=== PATIENT | female | born 1965 | race Caucasian/White ===

== ENCOUNTER 2017-03-04 07:56 | Day surgery (SDC) | payer OTHER ==
[2017-03-01 14:26] VITALS: BMI 32.8
[2017-03-04 11:07] VITALS: BP 140/81; PULSE 57; TEMP 98
--- NOTE | 2017-03-05 14:04 | PATH ---
Surgical Pathology Report Patient Name: ROBYN ANAYA [facility]. Rec. #: [id number] /Age/Gender: 1965 (Age: 51) / F Account: [id number] Location: [facility] Taken: 03/04/2017 Received: 03/04/2017 Reported: 03/05/2017 Physicians: Юлия Gonzalez M.D. Specimen(s) Received A: BX DUODENUM B: BX BODY AND ANTRUM C: SIGMOID POLYP Clinical History Colon and sigmoid cancer, screening, BRCA 1 gene, personal history of breast and ovarian cancer, abdominal pain Atrophic gastritis, sigmoid polyp and diverticulosis Final Diagnosis A. DUODENUM, SECOND PORTION AND BULB, BIOPSY: DUODENAL MUCOSA WITH MILD CHRONIC INFLAMMATION AND FOCAL NADYA'S GLANDS HYPERPLASIA. NO HISTOLOGIC EVIDENCE OF GLUTEN SENSITIVE ENTEROPATHY (CELIAC DISEASE). B. STOMACH, BODY AND ANTRUM, BIOPSY: GASTRIC ANTRAL OXYNTIC MUCOSA WITH MODERATE CHRONIC GASTRITIS. NO INTESTINAL METAPLASIA DYSPLASIA IDENTIFIED. IMMUNOSTAIN FOR H. PYLORI IS NEGATIVE FOR ORGANISMS. C. COLON, SIGMOID, POLYP, POLYP RECTUM: ALIMENTARY MATTER. NO MUCOSAL TISSUE IDENTIFIED. Electronically Signed Jair Lakhani M.D. Gross Description A. Received in formalin, labeled "biopsy second portion of duodenum and bulb" are 2 pillai, irregular portions of soft tissue averaging 0.4 cm in greatest dimension. The specimens are submitted in toto in one cassette. B. Received in formalin, labeled "biopsy body and antrum" are 4 pillai, irregular portions of soft tissue ranging from 0.2-0.6 cm in greatest dimension. The specimens are submitted in toto in one cassette. C. Received in formalin, labeled "sigmoid colon polyp" is a pillai, irregular portion of soft tissue or possible debris measuring 0.1 cm in greatest dimension. The specimen is submitted in toto in one cassette. 03/04/2017 saudi03/04/2017
== END 2017-03-04 10:50 | disposition home or self-care (01) ==
LOC: JASU-ENDO 07:56
PROVIDERS: ATTEND Internal Medicine Gastroenterology
PROC: 0DB98ZX Excision of Duodenum, Via Natural or Artificial Opening Endoscopic, Diagnostic (ICD-10-PCS; 2017-03-04)
PROC: 0DB68ZX Excision of Stomach, Via Natural or Artificial Opening Endoscopic, Diagnostic (ICD-10-PCS; 2017-03-04)
PROC: 0DJD8ZZ Inspection of Lower Intestinal Tract, Via Natural or Artificial Opening Endoscopic (ICD-10-PCS; principal; 2017-03-04 09:00)
DX: D12.5 Benign neoplasm of sigmoid colon (principal); K57.30 Diverticulosis of large intestine without perforation or abscess without bleeding; K64.8 Other hemorrhoids; K31.89 Other diseases of stomach and duodenum; R10.9 Unspecified abdominal pain; Z15.01 Genetic susceptibility to malignant neoplasm of breast
CPT/HCPCS: 88305-TC; 88342-TC

== ENCOUNTER 2018-04-19 22:24 | Emergency (ER) | payer OTHER ==
[2018-04-19 22:35] VITALS: BMI 32.8
--- NOTE | 2018-04-19 23:27 | PDOC ---
History of Present Illness - General History Source: Patient Exam Limitations: No Limitations - History of Present Illness Initial Comments: 04/19/18 23:45 Ms. Navarro is a 52 yo F with a hx of BRCA 1 positive with ovarian cancer (2000 s/ p total hysterectomy with bilateral oopherectomy), asthma, and breast cancer (s/ p double masectomy 2015 with metastatic disease to left rib cage pending PET scan in 2 weeks) followed by [facility] who presents to the emergency department with generalized weakness for the past two days with chest pressure, palpitations, and headache beginning this evening. She checked her BP and HR at home and she was at a SBP of 149 with a HR of 37. She recently completed her heart monitoring with her glue maker, Dr. Fuller, yesterday with pending results. She felt "exhausted all day" and has occipital headaches. Endorses having nausea. Denies the following: fevers, chills, diaphoresis, lightheadedness, chest pain, SOB, abdominal pain, leg swelling, recent travels, hx of DVT/PE, recent immobilization, and melena. Shx: Refer to above Meds: No prescribed medications. Uses herbs and supplements prescribed by Dr. Alex Ozuna at [place]: tumeric, braziliam graviola, scutellaria barbata, vitamin D , probiotic. PMD: Dr. Danii Vines Employee Relations Manager: Dr. Fuller Oncologist: Dr. Guzman Alternative medicine doctor: Dr. Alex Guzman 04/20/18 00:09 04/20/18 00:29 <Jair Yusuf - Last Filed: 04/20/18 00:41> <Damir Chacko - Last Filed: 04/20/18 01:30> - General Chief Complaint: Palpitations Stated Complaint: LOW HEART RATE Time Seen by Provider: 04/19/18 22:45 Past History - Past Medical History Anemia: No Asthma: Yes Cancer: Yes (BREAST CA 02/17 RT AND CHEMO,ovarian w METS 06/05 & 06/07) Cardiac Disorders: Yes (pvc's) CVA: No COPD: No CHF: No Dementia: No Diabetes: Yes (STERIOD INDUCED TRANSIENT DIABETES) GI Disorders: Yes (GERD, DIVERTICULOSIS) Disorders: No HTN: No Hypercholesterolemia: No Liver Disease: No Seizures: No Thyroid Disease: No - Surgical History Abdominal Surgery: Yes (VENTRAL HERNIA REPAIR) Appendectomy: Yes Cardiac Surgery: No Cholecystectomy: No Lung Surgery: No Neurologic Surgery: No - Suicide/Smoking/Psychosocial Hx Smoking Status: No Smoking History: Former smoker Have you smoked in the past 12 months: No Number of Cigarettes Smoked Daily: 0 If you are a former smoker, when did you quit?: 1993 Information on smoking cessation initiated: No Hx Alcohol Use: No Drug/Substance Use Hx: No Substance Use Type: None Hx Substance Use Treatment: No <Jair Yusuf - Last Filed: 04/20/18 00:41> <Damir Chacko - Last Filed: 04/20/18 01:30> - Past Medical History Allergies/Adverse Reactions: Allergies Allergy/AdvReac Type Severity Reaction Status Date / Time Shellfish Allergy Unknown Verified 04/19/18 22:30 acetaminophen [From Vicodin] Allergy Verified 04/19/18 22:30 codeine Allergy Verified 04/19/18 22:30 hydrocodone [From Vicodin] Allergy Verified 04/19/18 22:30 kiwi Allergy Verified 04/19/18 22:30 [Kiwi (Actinidia Chinensis)] vancomycin Allergy Verified 04/19/18 22:30 PISTACHIOS Allergy TICKLE Uncoded 04/19/18 22:30 SENSATION TO THROAT Home Medications: Ambulatory Orders Albuterol Sulfate Inhaler - [Ventolin HFA Inhaler -] 1 inh PO QID PRN 08/06/14 Levalbuterol Tartrate [Xopenex Hfa] 15 gm IH PRN PRN 08/06/14 Cyclobenzaprine HCl [Flexeril -] 5 mg PO PRN 03/01/17 Review of Systems - Review of Systems Able to Perform ROS?: Yes Constitutional: No: Chills, Diaphoresis, Fever HEENTM: No: Eye Pain, Blurred Vision, Recent change in vision, Ear Pain, Nose Pain, Throat Pain, Mouth Pain Respiratory: No: Cough, Shortness of Breath Cardiac (ROS): Yes: Other (pressure and awareness of heart beat). No: Chest Pain, Edema, Palpitations, Syncope, Chest Tightness ABD/GI: Yes: Nausea, Poor Fluid Intake. No: Abdominal Distended, Constipated, Diarrhea, Poor Appetite, Rectal Bleeding, Vomiting, Tarry Stools : No: Burning, Dysuria, Hematuria Musculoskeletal: Yes: Neck Pain. No: Back Pain, Joint Pain Integumentary: No: Rash Neurological: Yes: Headache. No: Numbness, Paresthesia, Seizure, Tingling, Tremors, Weakness, Unsteady Gait, Dizziness Psychiatric: No: Stressors Endocrine: No: Increased Hunger Hematologic/Lymphatic: No: Anemia <Jair Yusuf - Last Filed: 04/20/18 00:41> *Physical Exam - Vital Signs Last Vital Signs Temp Pulse Resp BP Pulse Ox 98.4 F 69 18 119/89 96 04/19/18 22:32 04/19/18 22:32 04/19/18 22:32 04/19/18 22:32 04/19/18 22:32 - Physical Exam General Appearance: Yes: Nourished, Appropriately Dressed HEENT: positive: EOMI, GUS Neck: positive: Trachea midline. negative: Lymphadenopathy (R), Lymphadenopathy (L) Respiratory/Chest: positive: Lungs Clear, Normal Breath Sounds, Other (scars from previous masectomy procedure). negative: Chest Tender, Respiratory Distress, Accessory Muscle Use Cardiovascular: positive: Regular Rhythm, Regular Rate, S1, S2. negative: Systolic Murmur Vascular Pulses: Dorsalis-Pedis (R): 3+, Doralis-Pedis (L): 3+ Gastrointestinal/Abdominal: positive: Normal Bowel Sounds, Tender (epigastric region mild discomfort) Lymphatic: negative: Adenopathy Musculoskeletal: positive: Normal Inspection. negative: CVA Tenderness Extremity: positive: Normal Capillary Refill, Normal Inspection, Normal Range of Motion. negative: Tender Integumentary: positive: Normal Color, Dry, Warm Neurologic: positive: resistance welder II-XII NML intact, Fully Oriented, Alert, Normal Mood/ Affect, Normal Response, Motor Strength 5/5. negative: EOM Palsy, Facial Droop , Numbness, Sensory Deficit, Confused, Disoriented <Jair Yusuf - Last Filed: 04/20/18 00:41> - Vital Signs Last Vital Signs Temp Pulse Resp BP Pulse Ox 98.4 F 69 18 119/89 96 04/19/18 22:32 04/19/18 22:32 04/19/18 22:32 04/19/18 22:32 04/19/18 22:32 <Damir Chacko - Last Filed: 04/20/18 01:30> Heart Score/ECG Review - ECG Intrepretation Comment:: 04/20/18 00:36 ventricular rate 64 bpm, NM interval 134 ms, QRS 88 ms, QTc 433ms. Normal sinus rhythm. No ST elevations or depressions., <ParamjitJair - Last Filed: 04/20/18 00:41> ED Treatment Course - LABORATORY CBC & Chemistry Diagram: 04/20/18 00:32 04/20/18 00:32 <ParamjitJair - Last Filed: 04/20/18 00:41> - LABORATORY CBC & Chemistry Diagram: 04/20/18 00:32 04/20/18 00:32 - ADDITIONAL ORDERS Additional order review: Laboratory Results 04/20/18 04/20/18 04/20/18 00:40 00:37 00:32 Sodium 142 Potassium 4.4 Chloride 109 H Carbon Dioxide 26 Anion Gap 7 L BUN 19 H Creatinine 0.8 Creat Clearance w eGFR > 60 Random Glucose 108 H Calcium 8.7 Total Bilirubin 0.4 AST 46 H ALT 78 H Alkaline Phosphatase 101 Creatine Kinase 102 Troponin I < 0.02 B-Natriuretic Peptide 55.01 Total Protein 6.7 Albumin 3.6 Urine Color Ltyellow Urine Appearance Clear Urine pH 5.0 D Ur Specific [place] 1.020 Urine Protein Negative Urine Glucose (UA) Negative Urine Ketones Negative Urine Blood Negative Urine Nitrite Negative Urine Bilirubin Negative Urine Urobilinogen Negative Ur Leukocyte Esterase 2+ H Urine WBC (Auto) 11 Urine RBC (Auto) 1 Ur Epithelial Cells Rare Urine Mucus Rare 04/20/18 00:32 RBC 4.85 MCV 83.6 MCHC 33.6 RDW 15.0 MPV 10.0 Neutrophils % 50.1 D Lymphocytes % 38.2 D Monocytes % 8.4 D Eosinophils % 2.6 Basophils % 0.7 D <Damir Chacko - Last Filed: 04/20/18 01:30> Medical Decision Making - Medical Decision Making 04/20/18 00:36 52 yo F with cancer hx presenting with weakness and pressure sensation in her chest with associative headache. ddx: metabolic disturbance, anemia, infectious etiology, cardiac etiology (ACS vs pericarditis vs CHF) Had an extensive conversation with the patient. the patient was agreeable to discharge home if labs are within normal limits and with close follow up with her PMD and glue maker. Will run a CBC, CMP, UA, CXR, trops, BNP, to assess for etiologies of weakness. Initial vitals: Initial Vital Signs Temp Pulse Resp BP Pulse Ox 98.4 F 69 18 119/89 96 04/19/18 22:32 04/19/18 22:32 04/19/18 22:32 04/19/18 22:32 04/19/18 22:[address] Steven 04/20/18 00:39 04/20/18 00:42 <Jair Yusuf - Last Filed: 04/20/18 00:41> *DC/Admit/Observation/Transfer <Jair Yusuf - Last Filed: 04/20/18 00:41> <Damir Chacko - Last Filed: 04/20/18 01:30> Diagnosis at time of Disposition: Weakness, Bradycardia, Palpitations - Discharge Dispostion Disposition: HOME - Referrals Referrals: Danii Vines MD [Primary Care Provider] - - Patient Instructions Printed Discharge Instructions: DI for Bradycardia Additional Instructions: Your bloodwork and EKG were normal today. Please follow up with Dr. Fuller within 48 hours for further evaluation of your low heart rate. If you experience any chest pain, shortness of breath, lightheadedness, or any other concerning symptoms, return to the ER immediately. - Post Discharge Activity
[2018-04-20 00:42] LABS: BASO % 0.7 % (0-2.0); EOS % 2.6 % (0-4.5); HEMATOCRIT 40.5 % (32.4-45.2); HEMOGLOBIN 13.6 GM/dL (10.7-15.3); LYMPH % 38.2 % (8-40); MCH 28.1 pg (25.7-33.7); MCHC 33.6 g/dl (32.0-36.0); MEAN CELL VOLUME 83.6 fl (80-96); MONO % 8.4 % (3.8-10.2); NEUT % 50.1 % (42.8-82.8); PLATELET COUNT 168 K/MM3 (134-434); RBC 4.85 M/mm3 (3.60-5.2); WHITE BLOOD COUNT 6.4 K/mm3 (4.0-10.0)
[2018-04-20 00:48] LABS: URINE APPEARANCE CLEAR; URINE BILIRUBIN NEGATIVE (<2.0 mg/dL); URINE COLOR LTYELLOW; URINE GLUCOSE (UA) NEGATIVE (NEGATIVE); URINE KETONE NEGATIVE (NEGATIVE); URINE NITRITE NEGATIVE (NEGATIVE); URINE PROTEIN NEGATIVE (NEGATIVE); URINE UROBILINOGEN NEGATIVE mg/dL (0.2-1.0)
[2018-04-20 00:54] LABS: URINE LEUK ESTERASE 2+ (NEGATIVE)
[2018-04-20 01:05] LABS: EPI CELLS RARE /HPF (FEW); URINE MUCUS RARE
[2018-04-20 01:13] LABS: ALBUMIN 3.6 g/dl (3.4-5.0); ANION GAP 7 MMOL/L (8-16); BILIRUBIN,TOTAL 0.4 mg/dL (0.2-1.0); BLOOD UREA NITROGEN 19 mg/dL (7-18); CALCIUM 8.7 mg/dL (8.5-10.1); CHLORIDE 109 mmol/L (98-107); CO2 26 mmol/L (21-32); CREATININE 0.8 mg/dL (0.55-1.3); GLUCOSE,RANDOM 108 mg/dL (74-106); SGPT/ALT 78 U/L (13-61); SODIUM 142 mmol/L (136-145); TOT PROT 6.7 g/dl (6.4-8.2)
[2018-04-20 01:16] LABS: ALK PHOS 101 U/L (45-117)
[2018-04-20 01:18] LABS: SGOT/AST 46 U/L (15-37)
[2018-04-20 01:19] LABS: POTASSIUM 4.4 mmol/L (3.5-5.1)
--- NOTE | 2018-04-20 01:20 | PDOC ---
Attending Attestation - Resident Resident Name: Jair Yusuf - ED Attending Attestation I have performed the following: I have examined & evaluated the patient, The case was reviewed & discussed with the resident, I agree w/resident's findings & plan, Exceptions are as noted - HPI HPI: 04/20/18 01:03 Patient is a 52 year old female with a significant past medical history of BRCA 1 positive ovarian cancer (2000 s/p total hysterectomy with bilateral oophorectomy), asthma, and breast cancer (s/p double mastectomy 2015 with metastatic disease to left rib cage, not on chemo), who presents to the ED with complaints of palpitations and bradycardia. Pt states that she felt her heart beating into her head and in her chest earlier today. She denies CP/SOB but states that her heartbeat was very strong. She took her heart rate and found it to be in the 30s. Her BP at the time was 148 systolic. Pt states that the symptoms resolved by the time she arrived to the ER. Currently denies any symptoms. Pt states that she had a similar episode in December and was evaluated by a ethylbenzene oxidizer. During that episode, she states her HR was persistently low for over a week. She was not given a PPM. Allergies: Shellfish, acetaminophen, codeine, hydrocodone, kiwi, vancomycin, Pistachios Social history: Former smoker. No alcohol. No illicit drugs. Surgical history: Ventral hernia repair, Appendectomy PMD: Dr. Vines Commanding Officer Motorized Squad: Dr. Fuller Oncologist: Dr. Guzman Alternative medicine doctor: Dr. Alex Guzman - Physicial Exam PE: 04/20/18 01:20 GENERAL: Awake, alert, and fully oriented, in no acute distress. HEAD: No signs of trauma EYES: PERRLA, EOMI, sclera anicteric, conjunctiva clear ENT: Auricles normal inspection, hearing grossly normal, nares patent, oropharynx clear without exudates. Moist mucosa NECK: Nontender, no stepoffs, Normal ROM, supple, no lymphadenopathy, JVD, or masses LUNGS: Breath sounds equal, clear to auscultation bilaterally. No wheezes, and no crackles HEART: Regular rate and rhythm, normal S1 and S2, no murmurs, rubs or gallops ABDOMEN: Soft, nontender, normoactive bowel sounds. No guarding, no rebound. No masses EXTREMITIES: Normal range of motion, no edema. No clubbing or cyanosis. No cords, erythema, or tenderness NEUROLOGICAL: Cranial nerves II through XII intact. 5/5 strength and sensation in all extremities, Normal speech, normal gait, normal cerebellar function SKIN: Warm, Dry, normal turgor, no rashes or lesions noted. - Medical Decision Making 04/20/18 01:20 52 F with episode of bradycardia at home, now resolved, associated with palpitations. Pt now with normal vitals, EKG shows NSR with rate 62. No chest pain/SOB. No lightheadedness/syncope. Pt appears to have perfusing pressure despite being bradycardic at home. Now HD stable in ED. - Labs, trop 04/20/18 01:28 Labs wnl, trop negative Pt monitored in ED for 3 hours, HR has been wnl CXR negative on my read UA with 11 WBCs. Pt denies any dysuria, denies F/C. Will defer abx at this time. Pt reassessed - continues to have no complaints. Pt is well appearing, with normal vitals. Clinically stable for DC at this time. I discussed the physical exam findings, ancillary test results and final diagnoses with the patient. I answered all of the patient's questions. The patient was satisfied with the care received and felt comfortable with the discharge plan and treatment plan. The patient agrees to follow up with the primary care physician within 24-72 hours.
[2018-04-20 01:49] VITALS: BP 123/79; PULSE 89; TEMP 98.6
--- NOTE | 2018-04-20 21:19 | EKG ---
Test Reason : Blood Pressure : / mmHG Vent. Rate : 064 BPM Atrial Rate : 064 BPM P-R Int : 134 ms QRS Dur : 088 ms QT Int : 420 ms P-R-T Axes : 034 017 012 degrees QTc Int : 433 ms NORMAL SINUS RHYTHM NORMAL ECG WHEN COMPARED WITH ECG OF 06-JUL-2014 20:14, NO SIGNIFICANT CHANGE WAS FOUND Confirmed by DELFINO VAUGHAN MD ([id number]) on 04/20/2018 9:19:06 PM Referred By: Confirmed By:DELFINO VAUGHAN MD
== END 2018-04-20 01:40 | disposition home or self-care (01) ==
LOC: JER 22:24
DX: R53.1 Weakness (principal); R00.1 Bradycardia, unspecified; R00.2 Palpitations; Z85.43 Personal history of malignant neoplasm of ovary; Z85.3 Personal history of malignant neoplasm of breast; Z85.830 Personal history of malignant neoplasm of bone; Z90.13 Acquired absence of bilateral breasts and nipples; Z87.19 Personal history of other diseases of the digestive system; Z91.013 Allergy to seafood; Z91.018 Allergy to other foods; Z88.8 Allergy status to other drugs, medicaments and biological substances; Z90.710 Acquired absence of both cervix and uterus; Z90.79 Acquired absence of other genital organ(s); Z90.722 Acquired absence of ovaries, bilateral
CPT/HCPCS: 36415; 71045-TC-FY; 80053; 81003; 81015; 82550; 83880; 84484; 85025; 93005; 93010; 99282-25

== ENCOUNTER 2019-03-16 11:08 | Inpatient (IN) | payer OTHER ==
--- NOTE | 2019-03-16 11:49 | PDOC ---
History of Present Illness - General Chief Complaint: Chest Pain Stated Complaint: CHEST PAIN Time Seen by Provider: 03/16/19 11:48 History Source: Patient Exam Limitations: No Limitations - History of Present Illness Initial Comments: 53 year old female with PMH metastatic breast CA (diagnosed 12/2015), ovarian CA (diagnosed 06/2001, mets 2002) presented to ED for chest pain x2 days, worsened today at 0100. Pt reported she awoke with chest pain around 0100 today , took her pulse which was 110, stayed awake for an hour or so, then felt the palpitations subside and went back to sleep. Pt reported generalized weakness, body cramping, abdmoinal cramping, left lower extremity edema x2 weeks since starting Faslodex January 28 2019. Pt reported she has had 3 injections of Faslodex. Pt also reported sweats/chills/subjective fever x2 days. PCP: Jasmyn Cardiology: Jonny Onc: Dr. Harrell at [facility] and Dr. Fu at [place] Allergies: Vancomycin (red man syndrome) Past History - Past Medical History Allergies/Adverse Reactions: Allergies Allergy/AdvReac Type Severity Reaction Status Date / Time Shellfish Allergy Unknown Verified 03/16/19 11:20 acetaminophen [From Vicodin] Allergy Verified 03/16/19 11:20 codeine Allergy Verified 03/16/19 11:20 hydrocodone [From Vicodin] Allergy Verified 03/16/19 11:20 kiwi Allergy Verified 03/16/19 11:20 [Kiwi (Actinidia Chinensis)] vancomycin Allergy Verified 03/16/19 11:20 PISTACHIOS Allergy TICKLE Uncoded 03/16/19 11:20 SENSATION TO THROAT Home Medications: Ambulatory Orders Levalbuterol Tartrate [Xopenex Hfa] 15 gm IH PRN PRN 08/06/14 Cyclobenzaprine HCl [Flexeril -] 5 mg PO PRN 03/01/17 Alprazolam [Xanax] 0.25 mg PO Q12H PRN 03/16/19 Fulvestrant [Faslodex] 250 mg IM ASDIR 03/16/19 Ondansetron HCl [Zofran] 8 mg PO TID PRN 03/16/19 Palbociclib [Ibrance] 125 mg PO ASDIR 03/16/19 Anemia: No Asthma: Yes Cancer: Yes (BREAST CA 02/17 RT AND CHEMO,ovarian w METS 06/05 & 06/07) Cardiac Disorders: Yes (pvc's) CVA: No COPD: No CHF: No Dementia: No Diabetes: Yes (STERIOD INDUCED TRANSIENT DIABETES) GI Disorders: Yes (GERD, DIVERTICULOSIS) Disorders: No HTN: No Hypercholesterolemia: No Liver Disease: No Seizures: No Thyroid Disease: No - Surgical History Abdominal Surgery: Yes (VENTRAL HERNIA REPAIR) Appendectomy: Yes Cardiac Surgery: No Cholecystectomy: No Lung Surgery: No Neurologic Surgery: No - Suicide/Smoking/Psychosocial Hx Smoking Status: No Smoking History: Unknown if ever smoked Have you smoked in the past 12 months: No Number of Cigarettes Smoked Daily: 0 If you are a former smoker, when did you quit?: 1993 Hx Alcohol Use: No Drug/Substance Use Hx: No Substance Use Type: None Hx Substance Use Treatment: No Review of Systems - Review of Systems Able to Perform ROS?: Yes Comments:: General: admitted to body aches, generalized weakness, subjective fever, sweats , chills. HEENT: denied sore throat, rhinorrhea, ear pain. Cardiovascular: admitted to chest pain, palpitations. denied syncope, diaphoresis. Respiratory: denied shortness of breath, cough, sputum production, hemoptysis. Gastrointestinal: admitted to abdominal pain. denied nausea, vomiting, diarrhea , constipation, blood in stool. Genitourinary: denied dysuria, increased urinary frequency, hematuria, urinary incontinence, flank pain. Back: denied back pain. Musculoskeletal: denied joint pain, muscle pain, joint swelling. Neurological: denied headache, dizziness, numbness, tingling, weakness. Integumentary: denied rash, laceration, abrasion. Hematologic/Lymphatic: denied bruising or bleeding. *Physical Exam - Vital Signs Last Vital Signs Temp Pulse Resp BP Pulse Ox 98.3 F 87 18 138/95 98 03/16/19 11:24 03/16/19 11:24 03/16/19 11:24 03/16/19 11:24 03/16/19 11:24 - Physical Exam Comments: Constitutional: Well-nourished, Well-developed, appearing stated age. HEENT: head is normocephalic, atraumatic. EOMI. PERRLA. Neck: supple. Full ROM. Cardiovascular: regular heart rhythm. no murmurs. no pericardial friction rub. Respiratory: clear to auscultation bilaterally. no crackles, rhonchi or wheezing. no stridor. Gastrointestinal: soft, nontender. normal bowel sounds. no rebound, guarding, masses. Extremities: peripheral pulses intact. 1+ pitting edema to LLE. no edema to RLE. Neurological: CN 2-12 grossly intact. moves all four extremities. Psych: awake, alert, oriented x3. follows commands. answers questions appropriately. ED Treatment Course - LABORATORY CBC & Chemistry Diagram: 03/16/19 12:39 03/16/19 12:39 Medical Decision Making - Medical Decision Making 03/16/19 12:13 53 year old female with above PMH presented to ED for chest pain since 944 this AM. Initial Vital Signs Temp Pulse Resp BP Pulse Ox 98.3 F 87 18 138/95 98 03/16/19 11:24 03/16/19 11:24 03/16/19 11:24 03/16/19 11:24 03/16/19 11:24 Afebrile. No tachycardia. No tachypnea. Mild hypertension. No hypoxia on room air. Labs ordered: CBC, CMP, mag, serum Imaging ordered: CXR, LLE Duplex, CTA chest Medications ordered: ASA 162 mg PO chew once EKG performed at 1110: rate 74, regular rhythm, normal axis, normal intervals, flipped T in III, otherwise no acute ST changes. EKG comparison 04/19/18: flipped T in III 03/16/19 13:07 CBC WBC 4.1 K/mm3 (4.0-10.0) 03/16/19 12:39 RBC 4.26 M/mm3 (3.60-5.2) 03/16/19 12:39 Hgb 13.7 GM/dL (10.7-15.3) 03/16/19 12:39 Hct 40.2 % (32.4-45.2) 03/16/19 12:39 MCV 94.4 fl (80-96) 03/16/19 12:39 MCH 32.3 pg (25.7-33.7) D 03/16/19 12:39 MCHC 34.2 g/dl (32.0-36.0) 03/16/19 12:39 RDW 15.9 % (11.6-15.6) H 03/16/19 12:39 Plt Count 231 K/MM3 (134-434) D 03/16/19 12:39 MPV 9.1 fl (7.5-11.1) 03/16/19 12:39 Absolute Neuts (auto) 2.2 K/mm3 (1.5-8.0) 03/16/19 12:39 Neutrophils % 53.0 % (42.8-82.8) 03/16/19 12:39 Lymphocytes % 38.1 % (8-40) 03/16/19 12:39 Monocytes % 5.1 % (3.8-10.2) 03/16/19 12:39 Eosinophils % 1.5 % (0-4.5) 03/16/19 12:39 Basophils % 2.3 % (0-2.0) H D 03/16/19 12:39 Nucleated RBC % 0 % (0-0) 03/16/19 12:39 No leukocytosis. No anemia. 03/16/19 14:15 CMP Sodium 143 mmol/L (136-145) 03/16/19 12:39 Potassium 4.3 mmol/L (3.5-5.1) 03/16/19 12:39 Chloride 110 mmol/L (98-107) H 03/16/19 12:39 Carbon Dioxide 24 mmol/L (21-32) 03/16/19 12:39 Anion Gap 9 MMOL/L (8-16) 03/16/19 12:39 BUN 19.0 mg/dL (7-18) H 03/16/19 12:39 Creatinine 1.0 mg/dL (0.55-1.3) 03/16/19 12:39 Est GFR (CKD-EPI)AfAm 74.49 03/16/19 12:39 Est GFR (CKD-EPI)NonAf 64.27 03/16/19 12:39 Random Glucose 102 mg/dL (74-106) 03/16/19 12:39 Calcium 8.9 mg/dL (8.5-10.1) 03/16/19 12:39 Magnesium 2.2 mg/dL (1.8-2.4) 03/16/19 12:39 Total Bilirubin 0.4 mg/dL (0.2-1) 03/16/19 12:39 AST 37 U/L (15-37) 03/16/19 12:39 ALT 67 U/L (13-61) H 03/16/19 12:39 Alkaline Phosphatase 60 U/L (45-117) 03/16/19 12:39 Troponin I < 0.02 ng/ml (0.00-0.05) 03/16/19 12:39 Total Protein 6.8 g/dl (6.4-8.2) 03/16/19 12:39 Albumin 3.9 g/dl (3.4-5.0) 03/16/19 12:39 Serum , Qual Negative 03/16/19 12:39 No electrolyte abnormalities. No Lucho. No transaminitis. Troponin undetectable. Serum negative. 03/16/19 16:44 CTA report: Name: [facility] DEPARTMENT OF RADIOLOGY Phys: Ariela Whitman RESIDENT : 1965 Age: 53 Sex: F [facility] Acct: [id number] Loc: [address] Exam Date: 03/16/19 Status: [place] [address] Unit Number: [id number] EXAM#: TYPE/EXAM: RESULT: [id number] CT/CHEST CTA Chest CT angiography Clinical information: evaluate for pulmonary embolism; chest pain, left lower extremity swelling, history of metastatic breast disease Multiplanar imaging was performed following intravenous administration of nonionic contrast. No discrete pulmonary embolus is identified. In comparison to a CT study of 2013 interval development of a mild subtle left upper lobe interstitial infiltrate is seen. Development of sclerotic lesions is seen within the left fourth, seventh and eighth ribs, the right seventh and eighth ribs, T12 vertebral body, and sternal body suggestive of metastatic neoplastic disease. Interval development of a 0.3 cm spherical sclerotic focus is noted within the T12 vertebral body also suggestive of neoplastic disease. Status post interval partial left mastectomy. Bilateral accessory surgical clips. The remainder of the chest exam demonstrates no definite interval change. Small stable left upper lobe and left lower lobe pulmonary nodules. No pneumothorax or pleural effusion is seen. There is no definite cardiac enlargement. No pericardial effusion is noted. There is no aortic aneurysm. No gross aortic dissection is visualized. No discrete lymphadenopathy is identified. The trachea and central bronchi demonstrate no obvious pathology. The partially imaged liver demonstrates development of diffuse fatty infiltration. Note is again made of mild stable left adrenal gland thickening consistent with hyperplasia versus subcentimeter adenomas. Impression: No CT evidence of pulmonary embolism. In comparison to a 2014 CT exam interval development of mild subtle left upper lobe interstitial infiltrate is seen which may be acute or chronic. Correlate clinically and with follow-up CT. Interval development of multifocal sclerotic lesions is noted suggestive of metastatic neoplastic disease. Small stable left upper lobe and left lower lobe pulmonary nodules. Hepatic steatosis. Stable left adrenal gland thickening consistent with hyperplasia versus subcentimeter adenomas. Reported By: George Carson MD 03/16/19 1631 Medications ordered: Vancomycin, Zosyn, aizthromycin 500 mg PO once Pt to be admitted for pneumonia, chest pain. Dr. Vines paged. 03/16/19 16:[address] Vines about the patient, she agrees with admission under her care. Pending admission. 03/16/19 17:19 CXR report: Exam Date: 03/16/19 Status: [place] [address] Unit Number: [id number] EXAM#: TYPE/EXAM: RESULT: [id number] RAD/CHEST - PA Chest: Chest pain Single view of the chest is submitted. Since 04/20/2018 there is no change of an adverse nature. There are clear lungs, normal mediastinum and sharp angles. There are right chest wall clips. The bones appear intact. There may be slight breast asymmetry. Impression: No acute chest pathology. Right chest wall clips. Reported By: Twin Cordero MD 03/16/19 17:33 Duplex US report: Exam Date: 03/16/19 Status: [place] [address] Unit Number: [id number] EXAM#: TYPE/EXAM: RESULT: [id number] US/DUPLEX VASCUL US-1 LEG Left lower extremity venous ultrasound Clinical information given: LLE swelling The exam was performed utilizing compression, grayscale, color flow and doppler sonography. There is no sonographic evidence of deep vein thrombosis. If there is clinical concern for possible isolated calf DVT or if there is a clinical diagnosis of uncomplicated superficial thrombophlebitis, then correlation with close follow up sonography is suggested. There is no obvious popliteal fossa cyst. Impression : No DVT is identified involving the left leg. Please see above. Reported By: George Carson MD 03/16/19 6537 *DC/Admit/Observation/Transfer Diagnosis at time of Disposition: Chest pain, Pneumonia - Discharge Dispostion Condition at time of disposition: Stable Decision to Admit order: Yes - Referrals - Patient Instructions - Post Discharge Activity
[2019-03-16 12:58] LABS: BASO % 2.3 % (0-2.0); EOS % 1.5 % (0-4.5); HEMATOCRIT 40.2 % (32.4-45.2); HEMOGLOBIN 13.7 GM/dL (10.7-15.3); LYMPH % 38.1 % (8-40); MCH 32.3 pg (25.7-33.7); MCHC 34.2 g/dl (32.0-36.0); MEAN CELL VOLUME 94.4 fl (80-96); MEAN PLT VOLUME 9.1 fl (7.5-11.1); MONO % 5.1 % (3.8-10.2); PLATELET COUNT 231 K/MM3 (134-434); RBC 4.26 M/mm3 (3.60-5.2); RDW 15.9 % (11.6-15.6); WHITE BLOOD COUNT 4.1 K/mm3 (4.0-10.0)
[2019-03-16 13:13] LABS: INR 1.08 (0.83-1.09); PROTHROMBIN TIME (PATIENT) 12.8 SEC (9.7-13.0)
[2019-03-16 13:16] LABS: ACTIVATED PTT 28.5 SECONDS (25.2-36.5)
[2019-03-16 13:23] LABS: ALBUMIN 3.9 g/dl (3.4-5.0); ALK PHOS 60 U/L (45-117); ANION GAP 9 MMOL/L (8-16); BILIRUBIN,TOTAL 0.4 mg/dL (0.2-1); CALCIUM 8.9 mg/dL (8.5-10.1); CHLORIDE 110 mmol/L (98-107); CO2 24 mmol/L (21-32); GLUCOSE,RANDOM 102 mg/dL (74-106); MAGNESIUM 2.2 mg/dL (1.8-2.4); POTASSIUM 4.3 mmol/L (3.5-5.1); SGOT/AST 37 U/L (15-37); SGPT/ALT 67 U/L (13-61); SODIUM 143 mmol/L (136-145); TOT PROT 6.8 g/dl (6.4-8.2)
--- NOTE | 2019-03-16 13:41 | PDOC ---
Documentation entered by Maninder Wan SCRIBE, acting as scribe for Italia Castellon MD. Italia Castellon MD: This documentation has been prepared by the Soco mena Elijah, SCRIBE, under my direction and personally reviewed by me in its entirety. I confirm that the documentation accurately reflects all work, treatment, procedures, and medical decision making performed by me. Attending Attestation - Resident Resident Name: Ariela Whitman - ED Attending Attestation I have performed the following: I have examined & evaluated the patient, The case was reviewed & discussed with the resident, I agree w/resident's findings & plan, Exceptions are as noted - HPI HPI: 03/16/19 13:16 Patient is a 53 year old female with a significant past medical history of metastatic breast CA (diagnosed 12/2015), ovarian CA (diagnosed 06/2001, mets 2002) who presents to the ED with x3 days of L-sided Chest Pain. The patient began to feel the chest pain which she originally described as cramping, non radiating and thought was associated with a change in medicine. Pt reports starting new chemo injections last Saturday of Faslodex. Over the last day, she states the pain has become more sharp in nature and woke her up from sleep last night. She also notes checking her pulse at the time and her HR was 116 which is abnormal for her. She denies SOB and fever. She reports "soaking" through her sheets last night however. She notes swelling of her LLE. Denies dizziness, focal weakness/numbness, abd pain, N/V/D. Allergies: Acetaminophen, Codeine, Hydrocodone, Vancomycin, Kiwi, Pistachio, Shellfish PCP: Dr. Vines Cardiology: Onc: Dr. Harrell at [facility] and Dr. Fu at [facility] - Physicial Exam PE: 03/16/19 13:16 Agree with Resident's Exam - Medical Decision Making 03/16/19 13:31 53yo F hx active breast/ovarian ca on chemo (daily oral, injections every 28 days, last 6 days ago) prsents to the ED with CP for 3 days a/w elevated HR as well as sweats. Vitals here wnl Exam wnl Will initiate PE w/u as well as infectious w/u as pt is immunocompromised EKG non ischemic Anticipate admission 03/16/19 16:52 W/u revealing of PNA in DARWIN, consistent with pt's sxs - likely pleurisy PE negative Covered with HCAP as she is on chemo and frequently in hospital Case discussed with Dr. Vines, pt accepted for admission Case discussed in detail with admitting physician including history, physical exam and ancillary studies. Admitting physician has assumed care for the patient, will follow all pending diagnostics and will complete the evaluation and treatment. Heart Score/ECG Review #1 03/16/19 13:40 Twelve-lead EKG was performed and reviewed by me. Sinus rhythm, rate 74. Wavy baseline. Normal axis. No ST elevations.
[2019-03-16] MEDS ORDERED: ACETAMINOPHEN 1000 MG/100 ML VIAL (NON FORMULARY) IVPB ONE (14:29)
[2019-03-16] MEDS ORDERED: ACETAMINOPHEN INJECTION 100 ML IVPB ONE (16:18)
[2019-03-16] MEDS ORDERED: PIPERACILLIN/TAZOB 4.5 GM 4.5 GM in DEXTROSE 5%-WATER 100 ML IVPB ONE (16:38)
[2019-03-16] MEDS ORDERED: AZITHROMYCIN 250 MG TABLET PO ONE (16:39)
[2019-03-16] MEDS ORDERED: ALPRAZolam 0.25 MG TABLET PO PRN (17:04)
[2019-03-16] MEDS ORDERED: ONDANSETRON 8 MG TABLET (FP) PO PRN (17:04)
[2019-03-16] MEDS ORDERED: PATIENT'S OWN MEDICATION (NON-FORMULARY) (Levalbuterol Tartrate [Xopenex Hfa] 15 GM) IH PRN (17:04)
[2019-03-16] MEDS ORDERED: CYCLOBENZAPRINE HCL 10 MG TABLET (FP) PO PRN (17:10)
[2019-03-16] MEDS ORDERED: IBUPROFEN 600 MG TABLET (FP) PO PRN (17:13)
[2019-03-16] MEDS ORDERED: PALBOCICLIB 125 MG PO SCH (17:15)
[2019-03-16] MEDS ORDERED: CYCLOBENZAPRINE HCL 10 MG TABLET (FP) PO SCH (17:15)
[2019-03-16] MEDS ORDERED: PIPERACILLIN/TAZOB 4.5 GM 4.5 GM/100 ML BAG IVPB ONE (19:29)
--- NOTE | 2019-03-16 20:30 | CONSULT ---
Consult - text type - Consultation Consultation Note: 53 year old female with PMH metastatic breast CA (diagnosed 12/2015), ovarian CA (diagnosed 06/2001, mets 2002) presented to ED for chest pain x2 days. Pt reported she awoke with chest pain around 0100 today, took her pulse which was 110, stayed awake for an hour or so, then felt the palpitations subside and went back to sleep. Pt reported generalized weakness, body cramping, abdmoinal cramping, left lower extremity edema x2 weeks since starting Faslodex January 28 2019. Pt reported she has had 3 injections of Faslodex. Pt also reported sweats/ chills/subjective fever x2 days. PCP: Jasmyn Cardiology: Jonny Onc: Dr. Harrell at [facility] and Dr. Fu at [place] Allergies: Vancomycin (red man syndrome) Past History h/o BRCA1 positivity h/o ovarian cancer 2000, treaed by Dr. Dee , s/p surgery, carbo/taxol x several c ycles Recurrence in 2002 s/p doxil x 8 cycles. In remission since then Rt. breast cancer 2015--s/p b/l mastectomies. No adjuvant therapy. Treated at [facility] [address] Gonzalez Recurrence in 2017 -- [place] [facility] Received olapari, then letrozole + ibrance briefly and more recently faslodex + ibrance Allergies/Adverse Reactions: Allergies Allergy/AdvReac Type Severity Reaction Status Date / Time Shellfish Allergy Unknown Verified 03/16/19 11:20 acetaminophen [From Vicodin] Allergy Verified 03/16/19 11:20 codeine Allergy Verified 03/16/19 11:20 hydrocodone [From Vicodin] Allergy Verified 03/16/19 11:20 kiwi Allergy Verified 03/16/19 11:20 [Kiwi (Actinidia Chinensis)] vancomycin Allergy Verified 03/16/19 11:20 PISTACHIOS Allergy TICKLE Uncoded 03/16/19 11:20 SENSATION TO THROAT Home Medications: Ambulatory Orders Levalbuterol Tartrate [Xopenex Hfa] 15 gm IH PRN PRN 08/06/14 Cyclobenzaprine HCl [Flexeril -] 5 mg PO PRN 03/01/17 Alprazolam [Xanax] 0.25 mg PO Q12H PRN 03/16/19 Fulvestrant [Faslodex] 250 mg IM ASDIR 03/16/19 Ondansetron HCl [Zofran] 8 mg PO TID PRN 03/16/19 Palbociclib [Ibrance] 125 mg PO ASDIR 03/16/19 Asthma: Yes Cancer: Yes (BREAST CA 02/17 RT AND CHEMO,ovarian w METS 06/05 & 06/07) Cardiac Disorders: Yes (pvc's)o Diabetes: Yes (STERIOD INDUCED TRANSIENT DIABETES) GI Disorders: Yes (GERD, DIVERTICULOSIS) - Surgical History Abdominal Surgery: Yes (VENTRAL HERNIA REPAIR) Appendectomy: Yes - Suicide/Smoking/Psychosocial Hx Smoking Status: No Smoking History: Unknown if ever smoked Have you smoked in the past 12 months: No Number of Cigarettes Smoked Daily: 0 If you are a former smoker, when did you quit?: 1993 Hx Alcohol Use: No Drug/Substance Use Hx: No Substance Use Type: None Hx Substance Use Treatment: No Review of Systems - Review of Systems Able to Perform ROS?: Yes Comments:: General: admitted to body aches, generalized weakness, subjective fever, sweats , chills. HEENT: denied sore throat, rhinorrhea, ear pain. Cardiovascular: admitted to chest pain, palpitations. denied syncope, diaphoresis. Respiratory: denied shortness of breath, cough, sputum production, hemoptysis. Gastrointestinal: admitted to abdominal pain. denied nausea, vomiting, diarrhea , constipation, blood in stool. Genitourinary: denied dysuria, increased urinary frequency, hematuria, urinary incontinence, flank pain. Back: denied back pain. Musculoskeletal: denied joint pain, muscle pain, joint swelling. Neurological: denied headache, dizziness, numbness, tingling, weakness. Integumentary: denied rash, laceration, abrasion. Hematologic/Lymphatic: denied bruising or bleeding. *Physical Exam - Vital Signs Last Vital Signs Temp Pulse Resp BP Pulse Ox 98.3 F 87 18 138/95 98 03/16/19 11:24 03/16/19 11:24 03/16/19 11:24 03/16/19 11:24 03/16/19 11:24 - Physical Exam Comments: Constitutional: Well-nourished, Well-developed, appearing stated age. HEENT: head is normocephalic, atraumatic. EOMI. PERRLA. Neck: supple. Full ROM. Cardiovascular: regular heart rhythm. no murmurs. no pericardial friction rub. Respiratory: clear to auscultation bilaterally. no crackles, rhonchi or wheezing. no stridor. Gastrointestinal: soft, nontender. normal bowel sounds. no rebound, guarding, masses. Extremities: peripheral pulses intact. 1+ pitting edema to LLE. no edema to RLE. Neurological: CN 2-12 grossly intact. moves all four extremities. Psych: awake, alert, oriented x3. follows commands. answers questions appropriately. CBC WBC 4.1 K/mm3 (4.0-10.0) 03/16/19 12:39 RBC 4.26 M/mm3 (3.60-5.2) 03/16/19 12:39 Hgb 13.7 GM/dL (10.7-15.3) 03/16/19 12:39 Hct 40.2 % (32.4-45.2) 03/16/19 12:39 MCV 94.4 fl (80-96) 03/16/19 12:39 MCH 32.3 pg (25.7-33.7) D 03/16/19 12:39 MCHC 34.2 g/dl (32.0-36.0) 03/16/19 12:39 RDW 15.9 % (11.6-15.6) H 03/16/19 12:39 Plt Count 231 K/MM3 (134-434) D 03/16/19 12:39 MPV 9.1 fl (7.5-11.1) 03/16/19 12:39 Absolute Neuts (auto) 2.2 K/mm3 (1.5-8.0) 03/16/19 12:39 Neutrophils % 53.0 % (42.8-82.8) 03/16/19 12:39 Lymphocytes % 38.1 % (8-40) 03/16/19 12:39 Monocytes % 5.1 % (3.8-10.2) 03/16/19 12:39 Eosinophils % 1.5 % (0-4.5) 03/16/19 12:39 Basophils % 2.3 % (0-2.0) H D 03/16/19 12:39 Nucleated RBC % 0 % (0-0) 03/16/19 12:39 CMP Sodium 143 mmol/L (136-145) 03/16/19 12:39 Potassium 4.3 mmol/L (3.5-5.1) 03/16/19 12:39 Chloride 110 mmol/L (98-107) H 03/16/19 12:39 Carbon Dioxide 24 mmol/L (21-32) 03/16/19 12:39 Anion Gap 9 MMOL/L (8-16) 03/16/19 12:39 BUN 19.0 mg/dL (7-18) H 03/16/19 12:39 Creatinine 1.0 mg/dL (0.55-1.3) 03/16/19 12:39 Est GFR (CKD-EPI)AfAm 74.49 03/16/19 12:39 Est GFR (CKD-EPI)NonAf 64.27 03/16/19 12:39 Random Glucose 102 mg/dL (74-106) 03/16/19 12:39 Calcium 8.9 mg/dL (8.5-10.1) 03/16/19 12:39 Magnesium 2.2 mg/dL (1.8-2.4) 03/16/19 12:39 Total Bilirubin 0.4 mg/dL (0.2-1) 03/16/19 12:39 AST 37 U/L (15-37) 03/16/19 12:39 ALT 67 U/L (13-61) H 03/16/19 12:39 Alkaline Phosphatase 60 U/L (45-117) 03/16/19 12:39 Troponin I < 0.02 ng/ml (0.00-0.05) 03/16/19 12:39 Total Protein 6.8 g/dl (6.4-8.2) 03/16/19 12:39 Albumin 3.9 g/dl (3.4-5.0) 03/16/19 12:39 Serum , Qual Negative 03/16/19 12:39 03/16/19 16:44 CTA report: In comparison to a CT study of 12/11/2013 interval development of a mild subtle left upper lobe interstitial infiltrate is seen. Development of sclerotic lesions is seen within the left fourth, seventh and eighth ribs, the right seventh and eighth ribs, T12 vertebral body, and sternal body suggestive of metastatic neoplastic disease. Interval development of a 0.3 cm spherical sclerotic focus is noted within the T12 vertebral body also suggestive of neoplastic disease. Status post interval partial left mastectomy. The remainder of the chest exam demonstrates no definite interval change. Small stable left upper lobe and left lower lobe pulmonary nodules. No pneumothorax or pleural effusion is seen. There is no definite cardiac enlargement. No pericardial effusion is noted. There is no aortic aneurysm. No gross aortic dissection is visualized. No discrete lymphadenopathy is identified. The trachea and central bronchi demonstrate no obvious pathology. The partially imaged liver demonstrates development of diffuse fatty infiltration. Note is again made of mild stable left adrenal gland thickening consistent with hyperplasia versus subcentimeter adenomas. Impression: No CT evidence of pulmonary embolism. In comparison to a 2014 CT exam interval development of mild subtle left upper lobe interstitial infiltrate is seen which may be acute or chronic. Correlate clinically and with follow-up CT. Interval development of multifocal sclerotic lesions is noted suggestive of metastatic neoplastic disease. Small stable left upper lobe and left lower lobe pulmonary nodules. Hepatic steatosis. Stable left adrenal gland thickening consistent with hyperplasia versus subcentimeter adenomas. LEG Left lower extremity venous ultrasound Clinical information given: LLE swelling The exam was performed utilizing compression, grayscale, color flow and doppler sonography. There is no sonographic evidence of deep vein thrombosis. If there is clinical concern for possible isolated calf DVT or if there is a clinical diagnosis of uncomplicated superficial thrombophlebitis, then correlation with close follow up sonography is suggested. There is no obvious popliteal fossa cyst. Impression: No DVT is identified involving the left leg. A/P 53 year old female with PMH metastatic breast CA (diagnosed 12/2015), ovarian CA (diagnosed 06/2001, mets 2002) presented to ED for chest pain x2 days. Pt reported generalized weakness, body cramping, abdmoinal cramping, left lower extremity edema x2 weeks since starting Faslodex January 28 2019. Pt also reported sweats/chills/subjective fever x2 days. h/o BRCA1 positivity h/o ovarian cancer 2000, treaed by Dr. Dee , s/p surgery, carbo/taxol x several c ycles Recurrence in 2002 s/p doxil x 8 cycles. In remission since then Rt. breast cancer 2015--s/p b/l mastectomies. No adjuvant therapy. Treated at [facility] [address] Carlos Recurrence in 2017 -- [place] [facility] [place] [facility] [place]. Received olapari, then letrozole + ibrance briefly and more recently faslodex + ibrance Got 1 dose of denosumab bu awaiting dental clearence LLE duplec neg. CTA --no PE, [place] infiltrate, b/l lung nodules, bone mets Lt. axillary ? pustu;e check U/S Continue antibiotics ID consult PAin control will follow
[2019-03-16] MEDS ORDERED: AZITHROMYCIN IVPB 500 MG/250 ML BAG IVPB ONE (21:03)
[2019-03-16] MEDS ORDERED: VANCOMYCIN 1 GRAM (PRE-DOCKED) 1,000 MG/250 ML BAG IVPB ONE (21:05)
[2019-03-16] MEDS ORDERED: AZITHROMYCIN 500 MG TABLET ONE (21:05)
[2019-03-16] MEDS: VANCOMYCIN 1,000 MG in DEXTROSE 5%-WATER - 250 ML IVPB ONE ×2 (21:07→21:18)
[2019-03-16 22:38] VITALS: BMI 38.9
[2019-03-17 08:03] LABS: HEMATOCRIT 36.1 % (32.4-45.2); HEMOGLOBIN 12.3 GM/dL (10.7-15.3); MCH 32.6 pg (25.7-33.7); MCHC 34.2 g/dl (32.0-36.0); MEAN CELL VOLUME 95.3 fl (80-96); PLATELET COUNT 205 K/MM3 (134-434); RBC 3.78 M/mm3 (3.60-5.2); RDW 15.8 % (11.6-15.6); WHITE BLOOD COUNT 2.8 K/mm3 (4.0-10.0)
[2019-03-17 08:08] LABS: ALBUMIN 3.5 g/dl (3.4-5.0); BILIRUBIN,TOTAL 0.6 mg/dL (0.2-1); BLOOD UREA NITROGEN 18.8 mg/dL (7-18); CALCIUM 8.8 mg/dL (8.5-10.1); CREATININE 1.1 mg/dL (0.55-1.3); POTASSIUM 4.2 mmol/L (3.5-5.1); TOT PROT 6.1 g/dl (6.4-8.2)
--- NOTE | 2019-03-17 09:39 | HP ---
Admitting History and Physical - Admission Chief Complaint: chest pain History of Present Illness: 53 year old female with PMH metastatic breast CA (diagnosed 12/2015), ovarian CA (diagnosed 06/2001, mets 2002) presented to ED for chest pain x2 days. Pt reported she awoke with chest pain around 0100 today, took her pulse which was 110, stayed awake for an hour or so, then felt the palpitations subside and went back to sleep. Pt reported generalized weakness, body cramping, abdmoinal cramping, left lower extremity edema x2 weeks since starting Faslodex January 28 2019. Pt reported she has had 3 injections of Faslodex. Pt also reported sweats/ chills/subjective fever x2 days. PCP: Jasmyn Cardiology: Jonny Onc: Dr. Harrell at [facility] and Dr. 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 Dee , s/p surgery, carbo/taxol x several c ycles Recurrence in 2002 s/p doxil x 8 cycles. In remission since then Rt. breast cancer 2015--s/p b/l mastectomies. No adjuvant therapy. Treated at [facility] by Dr. Gonzalez Recurrence in 2016 -- [place] [facility] [place] more [place] [facility] Received olapari, then letrozole + ibrance briefly and more recently faslodex + ibrance History Source: Patient, Medical Record Limitations to Obtaining History: No Limitations - Past Medical History ...LMP: 08/05/00 ...: No Heme/Onc: Yes: Current Chemotherapy - Past Surgical History Past Surgical History: Yes: Hysterectomy, Mastectomy (bilateral) - Smoking History Smoking history: Former smoker Have you smoked in the past 12 months: No Aproximately how many cigarettes per day: 0 If you are a former smoker, when did you quit?: 1993 - Alcohol/Substance Use Hx Alcohol Use: No History of Substance Use: reports: None - Social History Usual Living Arrangement: Yes: With Child ADL: Independent History of Recent Travel: No Home Medications - Allergies Allergies/Adverse Reactions: Allergies Allergy/AdvReac Type Severity Reaction Status Date / Time Shellfish Allergy Unknown Verified 03/16/19 11:20 acetaminophen [From Vicodin] Allergy Verified 03/16/19 11:20 codeine Allergy Verified 03/16/19 11:20 hydrocodone [From Vicodin] Allergy Verified 03/16/19 11:20 kiwi Allergy Verified 03/16/19 11:20 [Kiwi (Actinidia Chinensis)] vancomycin Allergy Verified 03/16/19 11:20 PISTACHIOS Allergy TICKLE Uncoded 03/16/19 11:20 SENSATION TO THROAT - Home Medications Home Medications: Ambulatory Orders Levalbuterol Tartrate [Xopenex Hfa] 15 gm IH PRN PRN 08/06/14 Cyclobenzaprine HCl [Flexeril -] 5 mg PO PRN 03/01/17 Alprazolam [Xanax] 0.25 mg PO Q12H PRN 03/16/19 Fulvestrant [Faslodex] 250 mg IM ASDIR 03/16/19 Ondansetron HCl [Zofran] 8 mg PO TID PRN 03/16/19 Palbociclib [Ibrance] 125 mg PO ASDIR 03/16/19 Review of Systems - Review of Systems Constitutional: reports: Chills, Malaise, Night Sweats, Weakness Eyes: reports: No Symptoms HENT: reports: No Symptoms Neck: reports: No Symptoms Cardiovascular: reports: Chest Pain, Palpitations Respiratory: reports: Cough Gastrointestinal: reports: No Symptoms Genitourinary: reports: No Symptoms Breasts: reports: Other (bilat mastectomy) Musculoskeletal: reports: Back Pain Integumentary: reports: Lesions (left axilla) Endocrine: reports: No Symptoms Hematology/Lymphatic: reports: Swollen Glands Psychiatric: reports: No Symptoms Physical Examination Vital Signs: Vital Signs Temperature 98.6 F 03/17/19 06:00 Pulse Rate 70 03/17/19 06:00 Respiratory Rate 18 03/17/19 06:00 Blood Pressure 141/61 03/17/19 06:00 O2 Sat by Pulse Oximetry (%) 97 03/16/19 22:06 Constitutional: Yes: Well Nourished, No Distress, Calm Eyes: Yes: Conjunctiva Clear, EOM Intact HENT: Yes: Atraumatic, Normocephalic Neck: Yes: Supple, Trachea Midline Cardiovascular: Yes: Regular Rate and Rhythm Respiratory: Yes: CTA Bilaterally Gastrointestinal: Yes: Normal Bowel Sounds, Soft, Abdomen, Obese ...Rectal Exam: Yes: Deferred Renal/: Yes: WNL Breast(s): Yes: Other (mastectomy) Musculoskeletal: Yes: Joint Swelling, Muscle Pain Extremities: No: Deformity, External Rotation Peripheral Pulses WNL: Yes Psychiatric: Yes: Oriented Labs: CBC, BMP 03/17/19 06:55 03/17/19 06:55 Problem List - Problems (1) Chest pain Code(s): R07.9 - CHEST PAIN, UNSPECIFIED (2) GERD (gastroesophageal reflux disease) Code(s): K21.9 - GASTRO-ESOPHAGEAL REFLUX DISEASE WITHOUT ESOPHAGITIS (3) Nausea and vomiting Code(s): R11.2 - NAUSEA WITH VOMITING, UNSPECIFIED (4) Palpitations Code(s): R00.2 - PALPITATIONS (5) Breast cancer metastasized to bone Code(s): C50.919 - MALIGNANT NEOPLASM OF UNSP SITE OF UNSPECIFIED FEMALE BREAST ; C79.51 - SECONDARY MALIGNANT NEOPLASM OF BONE (6) Breast cancer metastasized to axillary lymph node Code(s): C50.919 - MALIGNANT NEOPLASM OF UNSP SITE OF UNSPECIFIED FEMALE BREAST ; C77.3 - SEC AND UNSP MALIG NEOPLASM OF AXILLA AND UPPER LIMB NODES (7) 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
--- NOTE | 2019-03-17 11:27 | EKG ---
Test Reason : Blood Pressure : / mmHG Vent. Rate : 074 BPM Atrial Rate : 074 BPM P-R Int : 108 ms QRS Dur : 086 ms QT Int : 408 ms P-R-T Axes : 009 018 001 degrees QTc Int : 452 ms SINUS RHYTHM WITH SHORT ID OTHERWISE NORMAL ECG WHEN COMPARED WITH ECG OF 19-APR-2018 22:40, NO SIGNIFICANT CHANGE WAS FOUND Confirmed by Benton Miller MD ([id number]) on 03/17/2019 11:27:15 AM Referred By: Confirmed By:Benton Miller MD
[2019-03-17 11:53] LABS: BASO % 2.3 % (0-2.0); EOS % 3.4 % (0-4.5); LYMPH % 36.5 % (8-40); MONO % 7.3 % (3.8-10.2); NEUT % 50.5 % (42.8-82.8)
[2019-03-17] MEDS ORDERED: AZITHROMYCIN 250 MG TABLET PO SCH (12:30)
--- NOTE | 2019-03-17 12:31 | PN ---
Progress Note (short form) - Note Progress Note: ID consult dictated imp/reccd 53 yo female with metastic breast cancer on Ibrance since 2018 and on Faslodex for last 6 weeks presented to ED with sudden onset left chest pain sharp and pleuritic woke her from sleep no arm radiation seen in ED chest CTA done- no PE--read as "subtle"DARWIN infiltrate- further reviewed with radiologist- there is no infiltrate she has history of asthma and notes increased dry cough for last 2 weeks no fevers other kerns well has noted cramps since starting the faslodex, also swelling of her legs left greater then right no travel lives with sister currently working from home admitted in november with fevers and "trouble breathing" at [facility]- appears to have been for uri and asthma exacerbation- not sure if she got antiibotics, got steroids states this does not feel the same chest pain now markedly improved a component is reproducible on exam (she has bony mets) suspect this is pain due to mets, maybe reaction to the faslodex will treat with doxycycline for bronchitis- she takes zofran prn for nausea ( interaction with zithromax) ceftriaxone for possible axillary abscess/node- awaiting ultrasound d/w dr horn Problem List - Problems (1) Chest pain Code(s): R07.9 - CHEST PAIN, UNSPECIFIED (2) Bronchitis Code(s): J40 - BRONCHITIS, NOT SPECIFIED ACUTE OR CHRONIC (3) Axillary abscess Code(s): L02.419 - CUTANEOUS ABSCESS OF LIMB, UNSPECIFIED (4) Metastatic breast cancer Code(s): C50.919 - MALIGNANT NEOPLASM OF UNSP SITE OF UNSPECIFIED FEMALE BREAST
[2019-03-17] MEDS: DOXYCYCLINE HYCLATE 100 MG CAPSULE PO SCH (17:08)
[2019-03-17] MEDS ORDERED: cefTRIAXone SODIUM 1 GM VIAL ONE (17:55)
[2019-03-17] MEDS ORDERED: DEXTROSE 5%-WATER - 50 ML IVPB ONE (17:56)
[2019-03-17] MEDS ORDERED: CEFTRIAXONE 1 GM in DEXTROSE 5%-WATER - 50 ML IVPB SCH (18:00)
--- NOTE | 2019-03-17 18:47 | PN ---
Progress Note (short form) - Note Progress Note: Patient seen and examined Less pain chest and ribs CT with left rib mets - 4,7,8 and body of sternum\ Falling WBC - beginning week 2 of ibrance DARWIN infiltrate on antibiotics per ID Last Vital Signs Temp Pulse Resp BP Pulse Ox 98.6 F 74 18 142/97 97 03/17/19 06:00 03/17/19 14:00 03/17/19 14:00 03/17/19 14:00 03/16/19 22:06 HEENT: MAKI, EOM Intact Breasts: s/p bilateral mastectomies Cor: RSR, No murmurs, No gallops Lungs: Clear to P&A Abd: Soft, Normal bowel sounds, No organomegaly Ext:No significant edema Skin: No rashes, Integument intact CBC, BMP 03/17/19 06:55 03/17/19 06:55 Current Medications Generic Name Dose Route Start Last Admin Trade Name Freq PRN Reason Stop Dose Admin Alprazolam 0.25 mg 03/16/19 17:04 Xanax - PO Q12H PRN ANXIETY Cyclobenzaprine HCl 5 mg 03/16/19 17:10 Flexeril - PO TID PRN MUSCLE SPASMS Doxycycline Hyclate 100 mg 03/17/19 18:00 03/17/19 17:08 Vibramycin - PO 100 mg BID@1000,1800 DAVIN Administration Ceftriaxone Sodium 1 gm/ 50 mls @ 100 mls/hr 03/17/19 18:00 03/17/19 18:03 Dextrose IVPB 100 mls/hr Q24H DAVIN Administration Protocol Ibuprofen 600 mg 03/16/19 17:13 03/17/19 10:27 Motrin - PO 600 mg Q4H PRN Administration fever/ pain 1-5 Non-Formulary Medication 15 gm 03/16/19 17:04 Levalbuterol Tartrate [Xopenex Hfa] IH PRN PRN ASTHMA Non-Formulary Medication 125 mg 03/16/19 17:15 Palbociclib [Ibrance] PO ASDIR DAVIN Impression: Chest pain - likely secondary to bone mets in view of left ribs 4,7, 8 and sternal body involvement DARWIN infiltrate- Ab per ID Neutropenia - secondary to Ibrance - only week 2 - monitor carefully - may have to be discontinued.
[2019-03-17] MEDS ORDERED: diphenhydrAMINE HCL 25 MG CAPSULE (FP) PO ONE (23:45)
[2019-03-18 09:14] LABS: BLOOD UREA NITROGEN 14.6 mg/dL (7-18); CALCIUM 8.6 mg/dL (8.5-10.1); CREATININE 0.9 mg/dL (0.55-1.3); POTASSIUM 4.4 mmol/L (3.5-5.1)
[2019-03-18 09:29] LABS: BASO % 2.5 % (0-2.0); EOS % 3.2 % (0-4.5); HEMATOCRIT 35.2 % (32.4-45.2); HEMOGLOBIN 12.2 GM/dL (10.7-15.3); LYMPH % 44.1 % (8-40); MCH 32.8 pg (25.7-33.7); MCHC 34.6 g/dl (32.0-36.0); MEAN CELL VOLUME 94.7 fl (80-96); MEAN PLT VOLUME 9.1 fl (7.5-11.1); MONO % 5.5 % (3.8-10.2); NEUT % 44.7 % (42.8-82.8); PLATELET COUNT 203 K/MM3 (134-434); RBC 3.72 M/mm3 (3.60-5.2); RDW 15.7 % (11.6-15.6); WHITE BLOOD COUNT 2.1 K/mm3 (4.0-10.0)
--- NOTE | 2019-03-18 09:46 | CONS ---
INFECTIOUS DISEASE CONSULTATION DATE OF CONSULTATION: DATE OF DICTATION: 03/17/2019 REQUESTING PHYSICIAN: Danii Vines MD HISTORY: This is a 53-year-old woman with past medical history of metastatic breast cancer diagnosed in December 2015. She has a history of ovarian cancer diagnosed in 2000 with metastasis in 2002 who came to the emergency room yesterday with complaints of chest pain. She 2 days prior had a fleeting episode of some chest discomfort that resolved. Prior to this, she had some intermediate similar pains throughout other areas in her body, which she felt was secondary to her new medication, Faslodex, which she had started 6 weeks earlier. Yesterday morning it awoke her from sleep, and she had chest discomfort on the left side. She did not feel short of breath. She went back to sleep. She did note she was tachycardic. She awoke and still had the chest discomfort and came to the ER. She notes she has had lower extremity edema for 2 weeks, which her oncologist is aware of and was felt to be secondary to the Faslodex. She has had 3 injections to this date. She has had no fevers at all. She has had a dry cough for the last 2 weeks. She is followed by an oncologist at [facility] and Dr. Fu at [place]. She has a side effect of VANCOMYCIN, which gives her red man syndrome. PAST MEDICAL HISTORY: Notable for ovarian cancer in 2000 status post surgery, Carbo/Taxol. She had a recurrence in 2002 status post Doxil x8 cycles. She had a history of right breast cancer in 2015 status post bilateral mastectomies. At that time, she had implants that became infected. She was treated at [facility] with IV antibiotics, which is when she had the red man syndrome. She had a recurrence in 2016. Was getting her care with Dr. Fu. Was referred to [facility] and they are managing her together at this time. She started on Ibrance in October and is now on Faslodex for the last 6 weeks. ALLERGIES: She is allergic to SHELLFISH, ACETAMINOPHEN, CODEINE, HYDROCODONE, KIWI, PISTACHIOS, and her VANCOMYCIN allergy is red man syndrome. MEDICATIONS: As an outpatient include Xopenex, Flexeril, Xanax, Faslodex, Zofran, and Ibrance. PAST MEDICAL HISTORY: Notable for asthma. She has never been intubated. She has a history of these malignancies. She has had some GERD and diverticulosis. PAST SURGICAL HISTORY: Notable for bilateral mastectomies, ventral hernia repair, and appendectomy. Of note, she was hospitalized in November with what appears to be an asthma exacerbation. She describes it as a URI that she recalls being treated with Mucinex and cough syrup and prednisone. She said she ended up staying in the hospital for 8-9 days at [facility]. Was discharged and readmitted again for several days. She has not had any fever since that time. SOCIAL HISTORY: She lives with her sister. She stopped smoking in 1993. 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 There has been no travel. She has had no sick contacts. REVIEW OF SYSTEMS: As per HPI. She has had no nausea, vomiting, or diarrhea. PHYSICAL EXAMINATION: Vital Signs: She is afebrile. Temperature is 98.6, pulse is 70, blood pressure 141/61, respiratory rate is 18. She is saturating 97%. HEENT: She is normocephalic. Her eyes are anicteric. She has no thrush. Neck: Supple. Chest Wall: She has got some palpable tenderness that is reproducible on the left chest, which she describes as similar to her symptoms. small 2 cm nodule left axilla- no erythema, no fluctuance Lungs: Clear to auscultation. Heart: Regular rate and rhythm. Abdomen: Soft, nontender. Extremities: Trace edema bilaterally. DIAGNOSTIC DATA: White count is 2.8, hemoglobin 12.3, platelets are 205, ANC is 1.4, INR is 1, BUN 18, creatinine 1. LFTs are normal. Blood cultures are pending. CAT scan findings are as stated. She has gone for an ultrasound of her left axilla where she also had a palpable left axillary lymph node. Chest CTA is notable for the fact that she has no PE. There have been multiple multifocal, sclerotic, bony lesions, and she has a small, stable left upper lobe and left lower lobe pulmonary nodule , hepatic steatosis. On further review of the CAT scan with another radiologist, there is really no evidence of a left upper lobe infiltrate. In summary, this is a 53-year-old woman admitted with acute onset of left chest pain. I suspect this is due to her bony metastases. May be a reaction to the Faslodex. I would treat her with doxycycline for possible bronchitis. There is no clinical evidence that she has pneumonia. She takes Zofran p.r.n. for nausea, so I would avoid Zithromax. There is also a possible axillary abscess- she is getting a sonogram would add ceftriaxone for possible abscess at this time. Case was discussed with Dr. Vines. Ronny [id number] MTDD
[2019-03-18] MEDS: DOXYCYCLINE HYCLATE 100 MG CAPSULE PO SCH ×2 (10:02→18:44)
--- NOTE | 2019-03-18 12:33 | PN ---
Progress Note (short form) - Note Progress Note: afebrile Vital Signs Period Temp Pulse Resp BP Sys/Lin Pulse Ox Last 24 Hr 97.6 F-97.7 F 61-74 18-18 124-148/70-97 99 cor-rrr lungs clear left axilla with 1.5 cm mass firm, nt abd soft,nt ext no edema CBC, BMP 03/18/19 08:12 03/18/19 08:12 Microbiology 03/17/19 13:45 Urine For Antigen Detection Legionella Antigen - Final 03/17/19 13:45 Urine For Antigen Detection Streptococcus pneumoniae Antigen (M - Final 03/16/19 12:38 Blood - Peripheral Venous Blood Culture - Preliminary NO GROWTH OBTAINED AFTER 24 HOURS, INCUBATION TO CONTINUE FOR 4 DAYS. 03/16/19 12:39 Blood - Peripheral Venous Blood Culture - Preliminary NO GROWTH OBTAINED AFTER 24 HOURS, INCUBATION TO CONTINUE FOR 4 DAYS. suspect this is pain due to mets, maybe reaction to the faslodex will treat with doxycycline for bronchitis- she takes zofran prn for nausea ( interaction with zithromax) will resume zosyn for axillary abscess neutropenic precautions ?holdIbrance?? d/w dr horn d/w patient
--- NOTE | 2019-03-18 12:54 | PN ---
Progress Note (short form) - Note Progress Note: case discussed with ID -- patient in attendance understands there is no PNA however drop in WBC /ANC 900 appreciate Heme/onc opinion Vital Signs Period Temp Pulse Resp BP Sys/Lin Pulse Ox Last 24 Hr 97.6 F-97.7 F 61-74 18-18 124-148/70-97 99 enck - JVD heart S1/S2 lungs clear left axilla palpable mass not fluctuate no erythema abd soft ext - edema / FROM CBC, BMP 03/18/19 08:12 03/18/19 08:12 Microbiology 03/16/19 12:38 Blood - Peripheral Venous Blood Culture - Preliminary NO GROWTH OBTAINED AFTER 48 HOURS, INCUBATION TO CONTINUE FOR 3 DAYS. 03/16/19 12:39 Blood - Peripheral Venous Blood Culture - Preliminary NO GROWTH OBTAINED AFTER 48 HOURS, INCUBATION TO CONTINUE FOR 3 DAYS. 03/17/19 13:45 Urine For Antigen Detection Legionella Antigen - Final 03/17/19 13:45 Urine For Antigen Detection Streptococcus pneumoniae Antigen (M - Final Active Medications Alprazolam (Xanax -) 0.25 mg PO Q12H PRN PRN Reason: ANXIETY Cyclobenzaprine HCl (Flexeril -) 5 mg PO TID PRN PRN Reason: MUSCLE SPASMS Doxycycline Hyclate (Vibramycin -) 100 mg PO BID@1000,1800 DAVIN Last Admin: 03/18/19 10:02 Dose: 100 mg Ceftriaxone Sodium 1 gm/ (Dextrose) 50 mls @ 100 mls/hr IVPB Q24H DAVIN; Protocol Last Admin: 03/17/19 18:03 Dose: 100 mls/hr Piperacillin Sod/Tazobactam (Sod 4.5 gm/ Dextrose) 100 mls @ 200 mls/hr IVPB Q8H-IV DAVIN; Protocol Ibuprofen (Motrin -) 600 mg PO Q4H PRN PRN Reason: fever/ pain 1-5 Last Admin: 03/17/19 10:27 Dose: 600 mg Non-Formulary Medication (Levalbuterol Tartrate [Xopenex Hfa]) 15 gm IH PRN PRN PRN Reason: ASTHMA Non-Formulary Medication (Palbociclib [Ibrance]) 125 mg PO ASDIR DAVIN PER ID: suspect this is pain due to mets, maybe reaction to the faslodex will treat with doxycycline for bronchitis- she takes zofran prn for nausea (interaction with zithromax) will resume zosyn for axillary abscess neutropenic precautions ?holdIbrance?? will await oncology opinion -- patient took Iberance today Problem List - Problems (1) Chest pain Code(s): R07.9 - CHEST PAIN, UNSPECIFIED (2) GERD (gastroesophageal reflux disease) Code(s): K21.9 - GASTRO-ESOPHAGEAL REFLUX DISEASE WITHOUT ESOPHAGITIS (3) Nausea and vomiting Code(s): R11.2 - NAUSEA WITH VOMITING, UNSPECIFIED (4) Palpitations Code(s): R00.2 - PALPITATIONS (5) Breast cancer metastasized to bone Code(s): C50.919 - MALIGNANT NEOPLASM OF UNSP SITE OF UNSPECIFIED FEMALE BREAST ; C79.51 - SECONDARY MALIGNANT NEOPLASM OF BONE (6) Breast cancer metastasized to axillary lymph node Code(s): C50.919 - MALIGNANT NEOPLASM OF UNSP SITE OF UNSPECIFIED FEMALE BREAST ; C77.3 - SEC AND UNSP MALIG NEOPLASM OF AXILLA AND UPPER LIMB NODES (7) 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
[2019-03-18] MEDS ORDERED: PIPERACILLIN/TAZOBACTAM 4.5 GM VIAL IVPB ONE ×2 (13:06→17:45)
[2019-03-18] MEDS ORDERED: DEXTROSE 5%-WATER 100 ML IVPB ONE ×2 (13:06→17:45)
[2019-03-18] MEDS: PIPERACILLIN/TAZOB 4.5 GM 4.5 GM in DEXTROSE 5%-WATER 100 ML IVPB SCH ×2 (13:23→18:44)
[2019-03-18] MEDS: HYDROCORTISONE 1% TOPICAL CREAM 30 GM TUBE TP SCH ×2 (18:43→21:30)
[2019-03-19] MEDS ORDERED: ALBUTEROL SO4 2.5/IPRATROPIUM 0.5 INH SOL 3 ML VIAL.NEB. NEB ONE ×2 (00:40→01:00)
[2019-03-19] MEDS ORDERED: PIPERACILLIN/TAZOBACTAM 4.5 GM VIAL IVPB ONE ×3 (00:51→16:45)
[2019-03-19] MEDS ORDERED: DEXTROSE 5%-WATER 100 ML IVPB ONE ×3 (00:51→16:45)
[2019-03-19] MEDS ORDERED: diphenhydrAMINE HCL 12.5 MG/5 ML UNIT-DOSE CUPS PO ONE (01:00)
[2019-03-19] MEDS: PIPERACILLIN/TAZOB 4.5 GM 4.5 GM in DEXTROSE 5%-WATER 100 ML IVPB SCH ×3 (01:20→17:05)
[2019-03-19] MEDS: HYDROCORTISONE 1% TOPICAL CREAM 30 GM TUBE TP SCH ×3 (06:00→21:53)
[2019-03-19] MEDS ORDERED: diphenhydrAMINE HCL 12.5 MG/5 ML UNIT-DOSE CUPS PO PRN (06:00)
[2019-03-19] MEDS: DOXYCYCLINE HYCLATE 100 MG CAPSULE PO SCH ×2 (10:30→17:05)
--- NOTE | 2019-03-19 12:26 | PN ---
Progress Note (short form) - Note Progress Note: event of last night reviewed patient transferred to [facility] - developed allergic reaction to Mold in the room had respiratory distress and required tx-- she was transferred back to [facility] same room as at time of admission remains with asthmatic cough / but breathing improved Vital Signs Period Temp Pulse Resp BP Sys/Lin Pulse Ox Last 24 Hr 97.6 F-97.7 F 61-74 18-18 124-148/70-97 99 enck - JVD heart S1/S2 lungs clear bilat -NO WHEEZING left axilla palpable mass --significant decrease in size -- no erythema abd soft ext - edema / FROM am labs paending continues to hold Ibrance pending labs last dose taken yesterday CBC, BMP 03/18/19 08:12 03/18/19 08:12 Microbiology 03/16/19 12:38 Blood - Peripheral Venous Blood Culture - Preliminary NO GROWTH OBTAINED AFTER 48 HOURS, INCUBATION TO CONTINUE FOR 3 DAYS. 03/16/19 12:39 Blood - Peripheral Venous Blood Culture - Preliminary NO GROWTH OBTAINED AFTER 48 HOURS, INCUBATION TO CONTINUE FOR 3 DAYS. 03/17/19 13:45 Urine For Antigen Detection Legionella Antigen - Final 03/17/19 13:45 Urine For Antigen Detection Streptococcus pneumoniae Antigen (M - Final Urine For Antigen Detection Streptococcus pneumoniae Antigen (M - Final Active Medications Alprazolam (Xanax -) 0.25 mg PO Q12H PRN PRN Reason: ANXIETY Cyclobenzaprine HCl (Flexeril -) 5 mg PO TID PRN PRN Reason: MUSCLE SPASMS Diphenhydramine HCl (Benadryl Oral Solution -) 50 mg PO Q6H PRN PRN Reason: FOR ITCHING Doxycycline Hyclate (Vibramycin -) 100 mg PO BID@1000,1800 DAVIN Last Admin: 03/19/19 10:30 Dose: 100 mg Hydrocortisone (Hytone 1% Cream -) 1 applic TP TID [facility] Last Admin: 03/19/19 06:00 Dose: 1 applic Piperacillin Sod/Tazobactam (Sod 4.5 gm/ Dextrose) 100 mls @ 200 mls/hr IVPB Q8H-IV DAVIN; Protocol Last Admin: 03/19/19 10:26 Dose: 200 mls/hr Ibuprofen (Motrin -) 600 mg PO Q4H PRN PRN Reason: fever/ pain 1-5 Last Admin: 03/17/19 10:27 Dose: 600 mg Non-Formulary Medication (Levalbuterol Tartrate [Xopenex Hfa]) 15 gm IH PRN PRN PRN Reason: ASTHMA Non-Formulary Medication (Palbociclib [Ibrance]) 125 mg PO ASDIR DAVIN on-Formulary Medication (Palbociclib [Ibrance]) 125 mg PO ASDIR DAVIN Past History h/o BRCA1 positivity h/o ovarian cancer 2000, treaed by Dr. Dee , s/p surgery, carbo/taxol x several cycles Recurrence in 2002 s/p doxil x 8 cycles. In remission since then Rt. breast cancer 2016--s/p b/l mastectomies. No adjuvant therapy. Treated at [facility] by Dr. Gonzalez Recurrence in 2017 -- [place] [facility] [place] [facility]. Received olapari, then letrozole + ibrance briefly and more recently faslodex + ibrance PER ID: suspect this is pain due to mets, maybe reaction to the faslodex will treat with doxycycline for bronchitis- she takes zofran prn for nausea (interaction with zithromax) will resume zosyn for axillary abscess neutropenic precautions ?holdIbrance?? will await oncology opinion -- patient took Ibrance yesterday Problem List - Problems (1) Chest pain Code(s): R07.9 - CHEST PAIN, UNSPECIFIED (2) GERD (gastroesophageal reflux disease) Code(s): K21.9 - GASTRO-ESOPHAGEAL REFLUX DISEASE WITHOUT ESOPHAGITIS (3) Nausea and vomiting Code(s): R11.2 - NAUSEA WITH VOMITING, UNSPECIFIED (4) Palpitations Code(s): R00.2 - PALPITATIONS (5) Breast cancer metastasized to bone Code(s): C50.919 - MALIGNANT NEOPLASM OF UNSP SITE OF UNSPECIFIED FEMALE BREAST ; C79.51 - SECONDARY MALIGNANT NEOPLASM OF BONE (6) Breast cancer metastasized to axillary lymph node Code(s): C50.919 - MALIGNANT NEOPLASM OF UNSP SITE OF UNSPECIFIED FEMALE BREAST ; C77.3 - SEC AND UNSP MALIG NEOPLASM OF AXILLA AND UPPER LIMB NODES (7) 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
[2019-03-19 13:16] LABS: BASO % 3.1 % (0-2.0); EOS % 1.6 % (0-4.5); HEMATOCRIT 35.5 % (32.4-45.2); HEMOGLOBIN 12.2 GM/dL (10.7-15.3); LYMPH % 44.7 % (8-40); MCH 32.5 pg (25.7-33.7); MCHC 34.5 g/dl (32.0-36.0); MEAN CELL VOLUME 94.2 fl (80-96); MEAN PLT VOLUME 8.9 fl (7.5-11.1); MONO % 7.5 % (3.8-10.2); NEUT % 43.1 % (42.8-82.8); PLATELET COUNT 229 K/MM3 (134-434); RBC 3.76 M/mm3 (3.60-5.2); RDW 15.5 % (11.6-15.6); WHITE BLOOD COUNT 2.2 K/mm3 (4.0-10.0)
--- NOTE | 2019-03-19 19:19 | PN ---
Progress Note (short form) - Note Progress Note: afebrile transferred - had cough/wheeze last night in new room transferred back to 6 doing well cough and wheezing have resolved Vital Signs Period Temp Pulse Resp BP Sys/Lin Pulse Ox Last 24 Hr 97.7 F-98 F 66-73 18-18 131-148/74-82 98 cor-rrr lungs clear abd soft,nt ext axillary mass much improved! CBC, BMP 03/19/19 12:55 03/18/19 08:12 Microbiology 03/16/19 12:38 Blood - Peripheral Venous Blood Culture - Preliminary NO GROWTH OBTAINED AFTER 72 HOURS, INCUBATION TO CONTINUE FOR 2 DAYS. 03/16/19 12:39 Blood - Peripheral Venous Blood Culture - Preliminary NO GROWTH OBTAINED AFTER 72 HOURS, INCUBATION TO CONTINUE FOR 2 DAYS. 03/17/19 13:45 Urine For Antigen Detection Legionella Antigen - Final 03/17/19 13:45 Urine For Antigen Detection Streptococcus pneumoniae Antigen (M - Final a/p suspect this is pain due to mets, maybe reaction to the faslodex will treat with doxycycline for bronchitis- she takes zofran prn for nausea ( interaction with zithromax) will resume zosyn for axillary abscess improved hopefully home in am on po antibiotics- neutropenic precautions ibrance on hold
--- NOTE | 2019-03-19 21:47 | PN ---
Progress Note (short form) - Note Progress Note: Patient seen and examined feels improved Last Vital Signs Temp Pulse Resp BP Pulse Ox 97.9 F 73 18 146/76 98 03/19/19 14:01 03/19/19 14:01 03/19/19 10:00 03/19/19 14:01 03/18/19 21:00 Cor: RSR, No murmurs, No gallops Lungs: Clear to P&A Abd: Soft, Normal bowel sounds, No organomegaly Ext:No significant edema Abnormal Lab Results 03/19/19 12:55 WBC 2.2 L Absolute Neuts (auto) 1.0 L Lymphocytes % 44.7 H Basophils % 3.1 H Home Medication List Medication Instructions Recorded Confirmed Type Levalbuterol Tartrate [Xopenex Hfa] 15 gm IH PRN PRN 08/06/14 03/16/19 History Cyclobenzaprine HCl [Flexeril -] 5 mg PO PRN 03/01/17 03/16/19 History Alprazolam [Xanax] 0.25 mg PO Q12H PRN 03/16/19 03/16/19 History Fulvestrant [Faslodex] 250 mg IM ASDIR 03/16/19 03/16/19 History Ondansetron HCl [Zofran] 8 mg PO TID PRN 03/16/19 03/16/19 History Palbociclib [Ibrance] 125 mg PO ASDIR 03/16/19 03/16/19 History Active Medications Generic Name Dose Route Start Last Admin Trade Name Freq PRN Reason Stop Dose Admin Alprazolam 0.25 mg 03/16/19 17:04 Xanax - PO Q12H PRN ANXIETY Cyclobenzaprine HCl 5 mg 03/16/19 17:10 Flexeril - PO TID PRN MUSCLE SPASMS Diphenhydramine HCl 50 mg 03/19/19 06:00 Benadryl Oral Solution - PO Q6H PRN FOR ITCHING Doxycycline Hyclate 100 mg 03/17/19 18:00 03/19/19 17:05 Vibramycin - PO 100 mg BID@1000,1800 DAVIN Administration Hydrocortisone 1 applic 03/18/19 16:45 03/19/19 13:46 Hytone 1% Cream - TP 1 applic TID DAVIN Administration Piperacillin Sod/Tazobactam 100 mls @ 200 mls/hr 03/18/19 12:45 03/19/19 17: 05 Sod 4.5 gm/ Dextrose IVPB 200 mls/hr Q8H-IV DAVIN Administration Protocol Ibuprofen 600 mg 03/16/19 17:13 03/17/19 10:27 Motrin - PO 600 mg Q4H PRN Administration fever/ pain 1-5 Non-Formulary Medication 15 gm 03/16/19 17:04 Levalbuterol Tartrate [Xopenex Hfa] IH PRN PRN ASTHMA Non-Formulary Medication 125 mg 03/16/19 17:15 Palbociclib [Ibrance] PO ASDIR DAVIN A/P 53 year old female with PMH metastatic breast CA (diagnosed 12/2015), ovarian CA (diagnosed 06/2001, mets 2002) presented to ED for chest pain x2 days. Pt reported generalized weakness, body cramping, abdmoinal cramping, left lower extremity edema x2 weeks since starting Faslodex January 28 2019. Pt also reported sweats/chills/subjective fever x2 days. h/o BRCA1 positivity h/o ovarian cancer 2000, treaed by Dr. Dee , s/p surgery, carbo/taxol x several c ycles Recurrence in 2002 s/p doxil x 8 cycles. In remission since then Rt. breast cancer 2015--s/p b/l mastectomies. No adjuvant therapy. Treated at [facility] by Dr. Gonzalez Recurrence in 2017 -- was at [facility] [place] and more recently [facility] in [place]. Received olaparib, then letrozole + ibrance briefly and more recently faslodex + ibrance ( this is C6 D9 of ibrance) Got 1 dose of denosumab bu awaiting dental clearence Holding ibrance for grade3 neutropenia+ infection LLE duplex neg. CTA --no PE, DARWIN infiltrate, b/l lung nodules, bone mets Lt. axillary ? pustule/abscess Continue antibiotics ID follow up PAin control will need to follow up outpatient with primary oncologist closely
[2019-03-20] MEDS ORDERED: DEXTROSE 5%-WATER 100 ML IVPB ONE ×3 (01:23→17:07)
[2019-03-20] MEDS ORDERED: PIPERACILLIN/TAZOBACTAM 4.5 GM VIAL IVPB ONE ×3 (01:23→17:07)
[2019-03-20] MEDS: PIPERACILLIN/TAZOB 4.5 GM 4.5 GM in DEXTROSE 5%-WATER 100 ML IVPB SCH ×3 (01:32→17:10)
[2019-03-20] MEDS: HYDROCORTISONE 1% TOPICAL CREAM 30 GM TUBE TP SCH ×3 (05:38→22:19)
[2019-03-20 08:14] LABS: BASO % 2.4 % (0-2.0); EOS % 2.4 % (0-4.5); HEMATOCRIT 34.9 % (32.4-45.2); HEMOGLOBIN 12.2 GM/dL (10.7-15.3); LYMPH % 49.3 % (8-40); MCHC 35.1 g/dl (32.0-36.0); MEAN CELL VOLUME 94.1 fl (80-96); MEAN PLT VOLUME 9.1 fl (7.5-11.1); MONO % 5.5 % (3.8-10.2); NEUT % 40.4 % (42.8-82.8); PLATELET COUNT 218 K/MM3 (134-434); RBC 3.71 M/mm3 (3.60-5.2); RDW 15.4 % (11.6-15.6); WHITE BLOOD COUNT 2.2 K/mm3 (4.0-10.0)
[2019-03-20 08:32] LABS: BLOOD UREA NITROGEN 16.6 mg/dL (7-18); CALCIUM 8.7 mg/dL (8.5-10.1); CREATININE 0.9 mg/dL (0.55-1.3); POTASSIUM 4.3 mmol/L (3.5-5.1)
[2019-03-20] MEDS: DOXYCYCLINE HYCLATE 100 MG CAPSULE PO SCH ×2 (09:47→17:12)
--- NOTE | 2019-03-20 12:25 | PN ---
Progress Note (short form) - Note Progress Note: event of last night reviewed patient transferred to [facility] - developed allergic reaction to Mold in the room had respiratory distress and required tx-- she was transferred [facility] same room as at time of admission remains with asthmatic cough / but breathing improved Vital Signs Period Temp Pulse Resp BP Sys/Lin Pulse Ox Last 24 Hr 97.6 F-97.7 F 61-74 18-18 124-148/70-97 99 enck - JVD heart S1/S2 lungs clear bilat -NO WHEEZING left axilla palpable mass --significant decrease in size /( less than yesterday )-- no erythema abd soft ext - edema / FROM continues to hold Ibrance pending labs last dose taken 2 days ago CBC, BMP 03/20/19 06:45 03/20/19 06:45 ANC 900 CBC, BMP 03/18/19 08:12 03/18/19 08:12 Microbiology 03/16/19 12:38 Blood - Peripheral Venous Blood Culture - Preliminary NO GROWTH OBTAINED AFTER 72 HOURS, INCUBATION TO CONTINUE FOR 2 DAYS. 03/16/19 12:39 Blood - Peripheral Venous Blood Culture - Preliminary NO GROWTH OBTAINED AFTER 72 HOURS, INCUBATION TO CONTINUE FOR 2 DAYS. 03/17/19 13:45 Urine For Antigen Detection Legionella Antigen - Final 03/17/19 13:45 Urine For Antigen Detection Streptococcus pneumoniae Antigen (M - Final Active Medications Alprazolam (Xanax -) 0.25 mg PO Q12H PRN PRN Reason: ANXIETY Cyclobenzaprine HCl (Flexeril -) 5 mg PO TID PRN PRN Reason: MUSCLE SPASMS Diphenhydramine HCl (Benadryl Oral Solution -) 50 mg PO Q6H PRN PRN Reason: FOR ITCHING Doxycycline Hyclate (Vibramycin -) 100 mg PO BID@1000,1800 DAVIN Last Admin: 03/20/19 09:47 Dose: 100 mg Hydrocortisone (Hytone 1% Cream -) 1 applic TP TID [facility] Last Admin: 03/20/19 05:38 Dose: Not Given Piperacillin Sod/Tazobactam (Sod 4.5 gm/ Dextrose) 100 mls @ 200 mls/hr IVPB Q8H-IV DAVIN; Protocol Last Admin: 03/20/19 09:44 Dose: 200 mls/hr Ibuprofen (Motrin -) 600 mg PO Q4H PRN PRN Reason: fever/ pain 1-5 Last Admin: 03/17/19 10:27 Dose: 600 mg Non-Formulary Medication (Levalbuterol Tartrate [Xopenex Hfa]) 15 gm IH PRN PRN PRN Reason: ASTHMA Non-Formulary Medication (Palbociclib [Ibrance]) 125 mg PO ASDIR [facility] Active Medications Alprazolam (Xanax -) 0.25 mg PO Q12H PRN PRN Reason: ANXIETY Cyclobenzaprine HCl (Flexeril -) 5 mg PO TID PRN PRN Reason: MUSCLE SPASMS Diphenhydramine HCl (Benadryl Oral Solution -) 50 mg PO Q6H PRN PRN Reason: FOR ITCHING Doxycycline Hyclate (Vibramycin -) 100 mg PO BID@1000,1800 DAVIN Last Admin: 03/19/19 10:30 Dose: 100 mg Hydrocortisone (Hytone 1% Cream -) 1 applic TP TID [facility] Last Admin: 03/19/19 06:00 Dose: 1 applic Piperacillin Sod/Tazobactam (Sod 4.5 gm/ Dextrose) 100 mls @ 200 mls/hr IVPB Q8H-IV DAVIN; Protocol Last Admin: 03/19/19 10:26 Dose: 200 mls/hr Ibuprofen (Motrin -) 600 mg PO Q4H PRN PRN Reason: fever/ pain 1-5 Last Admin: 03/17/19 10:27 Dose: 600 mg Non-Formulary Medication (Levalbuterol Tartrate [Xopenex Hfa]) 15 gm IH PRN PRN PRN Reason: ASTHMA Non-Formulary Medication (Palbociclib [Ibrance]) 125 mg PO ASDIR [facility] on-Formulary Medication (Palbociclib [Ibrance]) 125 mg PO ASDIR DAVIN Past History h/o BRCA1 positivity h/o ovarian cancer 2000, treaed by Dr. Dee , s/p surgery, carbo/taxol x several cycles Recurrence in 2002 s/p doxil x 8 cycles. In remission since then Rt. breast cancer 2015--s/p b/l mastectomies. No adjuvant therapy. Treated at [facility] by Dr. Gonzalez Recurrence in 2017 -- was at [facility] [place] and more recently [facility] Received olapari, then letrozole + ibrance briefly and more recently faslodex + ibrance PER ID: suspect this is pain due to mets, maybe reaction to the faslodex will treat with doxycycline for bronchitis- she takes zofran prn for nausea (interaction with zithromax) will resume zosyn for axillary abscess neutropenic precautions ?holdIbrance?? will await oncology opinion -- Problem List - Problems (1) Chest pain Code(s): R07.9 - CHEST PAIN, UNSPECIFIED (2) GERD (gastroesophageal reflux disease) Code(s): K21.9 - GASTRO-ESOPHAGEAL REFLUX DISEASE WITHOUT ESOPHAGITIS (3) Nausea and vomiting Code(s): R11.2 - NAUSEA WITH VOMITING, UNSPECIFIED (4) Palpitations Code(s): R00.2 - PALPITATIONS (5) Breast cancer metastasized to bone Code(s): C50.919 - MALIGNANT NEOPLASM OF UNSP SITE OF UNSPECIFIED FEMALE BREAST ; C79.51 - SECONDARY MALIGNANT NEOPLASM OF BONE (6) Breast cancer metastasized to axillary lymph node Code(s): C50.919 - MALIGNANT NEOPLASM OF UNSP SITE OF UNSPECIFIED FEMALE BREAST ; C77.3 - SEC AND UNSP MALIG NEOPLASM OF AXILLA AND UPPER LIMB NODES (7) 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
--- NOTE | 2019-03-20 14:01 | PN ---
Progress Note (short form) - Note Progress Note: afebrile no complaints Vital Signs Period Temp Pulse Resp BP Sys/Lin Pulse Ox Last 24 Hr 97.8 F-99.0 F 62-79 16-20 133-152/67-84 97-97 cor-rrr lungs clear nodule left axilla is smaller CBC, BMP 03/20/19 06:45 03/20/19 06:45 Microbiology 03/16/19 12:38 Blood - Peripheral Venous Blood Culture - Preliminary NO GROWTH OBTAINED AFTER 96 HOURS, INCUBATION TO CONTINUE FOR 1 DAYS. 03/16/19 12:39 Blood - Peripheral Venous Blood Culture - Preliminary NO GROWTH OBTAINED AFTER 96 HOURS, INCUBATION TO CONTINUE FOR 1 DAYS. 03/17/19 13:45 Urine For Antigen Detection Legionella Antigen - Final 03/17/19 13:45 Urine For Antigen Detection Streptococcus pneumoniae Antigen (M - Final a/p will treat with doxycycline for bronchitis- she takes zofran prn for nausea ( interaction with zithromax) will resume zosyn for axillary abscess-almost resolved improved hopefully home in am on po antibiotics- augmentin should be fine day #5 antibiotics neutropenic precautions ibrance on hold
--- NOTE | 2019-03-20 16:58 | PN ---
Progress Note (short form) - Note Progress Note: Patient seen and examined Left axillary abscess- reduced , non tender Last Vital Signs Temp Pulse Resp BP Pulse Ox 98.1 F 72 18 136/78 97 03/20/19 06:00 03/20/19 10:00 03/20/19 10:00 03/20/19 10:00 03/20/19 09:00 Lungs- clear Cor Left axilla- minimal abscess, non tender CBC, BMP 03/20/19 06:45 03/20/19 06:45 Current Medications Generic Name Dose Route Start Last Admin Trade Name Freq PRN Reason Stop Dose Admin Alprazolam 0.25 mg 03/16/19 17:04 Xanax - PO Q12H PRN ANXIETY Cyclobenzaprine HCl 5 mg 03/16/19 17:10 Flexeril - PO TID PRN MUSCLE SPASMS Diphenhydramine HCl 50 mg 03/19/19 06:00 Benadryl Oral Solution - PO Q6H PRN FOR ITCHING Doxycycline Hyclate 100 mg 03/17/19 18:00 03/20/19 09:47 Vibramycin - PO 100 mg BID@1000,1800 DAVIN Administration Hydrocortisone 1 applic 03/18/19 16:45 03/20/19 05:38 Hytone 1% Cream - TP Not Given TID DAVIN Piperacillin Sod/Tazobactam 100 mls @ 200 mls/hr 03/18/19 12:45 03/20/19 09: 44 Sod 4.5 gm/ Dextrose IVPB 200 mls/hr Q8H-IV DAVIN Administration Protocol Ibuprofen 600 mg 03/16/19 17:13 03/17/19 10:27 Motrin - PO 600 mg Q4H PRN Administration fever/ pain 1-5 Non-Formulary Medication 15 gm 03/16/19 17:04 Levalbuterol Tartrate [Xopenex Hfa] IH PRN PRN ASTHMA Non-Formulary Medication 125 mg 03/16/19 17:15 Palbociclib [Ibrance] PO ASDIR DAVIN Impression: Left axillary abscess Neutropenia\ Metastatic breast ca H/ BRCa-1 H/O ovarian ca To continue to withhold Ibrance Continue antibiotics Follow up primary oncologist as outpatient.
[2019-03-20] MEDS: ONDANSETRON 4 MG/2 ML VIAL IVPUSH PRN (20:57)
[2019-03-21] MEDS ORDERED: PIPERACILLIN/TAZOBACTAM 4.5 GM VIAL IVPB ONE ×3 (01:17→17:33)
[2019-03-21] MEDS ORDERED: DEXTROSE 5%-WATER 100 ML IVPB ONE ×3 (01:17→17:33)
[2019-03-21] MEDS: PIPERACILLIN/TAZOB 4.5 GM 4.5 GM in DEXTROSE 5%-WATER 100 ML IVPB SCH ×3 (01:38→17:36)
[2019-03-21] MEDS: HYDROCORTISONE 1% TOPICAL CREAM 30 GM TUBE TP SCH ×3 (05:44→21:35)
[2019-03-21] MEDS: DOXYCYCLINE HYCLATE 100 MG CAPSULE PO SCH ×2 (09:25→17:35)
[2019-03-21 12:47] LABS: BASO % 1.2 % (0-2.0); EOS % 1.9 % (0-4.5); HEMATOCRIT 37.9 % (32.4-45.2); HEMOGLOBIN 13.3 GM/dL (10.7-15.3); LYMPH % 43.9 % (8-40); MCH 33.2 pg (25.7-33.7); MCHC 35.2 g/dl (32.0-36.0); MEAN CELL VOLUME 94.4 fl (80-96); MONO % 6.6 % (3.8-10.2); NEUT % 46.4 % (42.8-82.8); PLATELET COUNT 244 K/MM3 (134-434); RBC 4.01 M/mm3 (3.60-5.2); RDW 15.6 % (11.6-15.6)
--- NOTE | 2019-03-21 17:13 | PN ---
Progress Note (short form) - Note Progress Note: feeling better mild residual cough denies wheezing or SOB Vital Signs Period Temp Pulse Resp BP Sys/Lin Pulse Ox Last 24 Hr 97.9 F-98.3 F 57-83 16-18 124-152/53-113 95-98 neck suppple heart S1/S2 lungs clear bilat -NO WHEEZING left axilla palpable mass --significant decrease in size /( less than yesterday )( pea size)-- no erythema abd soft ext - edema / FROM continues to hold Ibrance pending labs last dose taken 3 days ago CBC, BMP 03/21/19 12:15 03/20/19 06:45 ANC 1400 CBC, BMP 03/20/19 06:45 03/20/19 06:45 ANC 900 CBC, [facility] 03/18/19 08:12 03/18/19 08:12 Microbiology 03/16/19 12:38 Blood - Peripheral Venous Blood Culture - Final NO GROWTH AFTER 5 DAYS INCUBATION 03/16/19 12:39 Blood - Peripheral Venous Blood Culture - Final NO GROWTH AFTER 5 DAYS INCUBATION 03/17/19 13:45 Urine For Antigen Detection Legionella Antigen - Final 03/17/19 13:45 Urine For Antigen Detection Streptococcus pneumoniae Antigen (M - Final Active Medications Alprazolam (Xanax -) 0.25 mg PO Q12H PRN PRN Reason: ANXIETY Cyclobenzaprine HCl (Flexeril -) 5 mg PO TID PRN PRN Reason: MUSCLE SPASMS Diphenhydramine HCl (Benadryl Oral Solution -) 50 mg PO Q6H PRN PRN Reason: FOR ITCHING Doxycycline Hyclate (Vibramycin -) 100 mg PO BID@1000,1800 DAVIN Last Admin: 03/21/19 09:25 Dose: 100 mg Hydrocortisone (Hytone 1% Cream -) 1 applic TP TID [facility] Last Admin: 03/21/19 15:58 Dose: Not Given Piperacillin Sod/Tazobactam (Sod 4.5 gm/ Dextrose) 100 mls @ 200 mls/hr IVPB Q8H-IV DAVIN; Protocol Last Admin: 03/21/19 09:25 Dose: 200 mls/hr Ibuprofen (Motrin -) 600 mg PO Q4H PRN PRN Reason: fever/ pain 1-5 Last Admin: 08/13/19 10:27 Dose: 600 mg Non-Formulary Medication (Levalbuterol Tartrate [Xopenex Hfa]) 15 gm IH PRN PRN PRN Reason: ASTHMA Non-Formulary Medication (Palbociclib [Ibrance]) 125 mg PO ASDIR DAVIN Ondansetron HCl (Zofran Injection) 4 mg IVPUSH Q4H PRN PRN Reason: NAUSEA Last Admin: 03/20/19 20:57 Dose: 4 mg Past History h/o BRCA1 positivity h/o ovarian cancer 2000, treaed by Dr. Dee , s/p surgery, carbo/taxol x several cycles Recurrence in 2002 s/p doxil x 8 cycles. In remission since then Rt. breast cancer 2016--s/p b/l mastectomies. No adjuvant therapy. Treated at [facility] by Dr. Gonzalez Recurrence in 2017 -- was at [facility] [place] and more recently [facility]. Received olapari, then letrozole + ibrance briefly and more recently faslodex + ibrance 53 y/o female Immunocompromised with metastatic breast Ca / H/BRCa-1 / HX Ovarian Ca / neutropenic admitted found to have left axillary abscess, has been holding Ibrance, following Onc recommendation. Progressive decrease in abscess size -- all c/s negative to date, continue neutropenic precautions and IV abx Will discuss with ID possible d/c in am Problem List - Problems (1) Chest pain Code(s): R07.9 - CHEST PAIN, UNSPECIFIED (2) GERD (gastroesophageal reflux disease) Code(s): K21.9 - GASTRO-ESOPHAGEAL REFLUX DISEASE WITHOUT ESOPHAGITIS (3) Nausea and vomiting Code(s): R11.2 - NAUSEA WITH VOMITING, UNSPECIFIED (4) Palpitations Code(s): R00.2 - PALPITATIONS (5) Breast cancer metastasized to bone Code(s): C50.919 - MALIGNANT NEOPLASM OF UNSP SITE OF UNSPECIFIED FEMALE BREAST ; C79.51 - SECONDARY MALIGNANT NEOPLASM OF BONE (6) Breast cancer metastasized to axillary lymph node Code(s): C50.919 - MALIGNANT NEOPLASM OF UNSP SITE OF UNSPECIFIED FEMALE BREAST ; C77.3 - SEC AND UNSP MALIG NEOPLASM OF AXILLA AND UPPER LIMB NODES (7) 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
[2019-03-21] MEDS: ONDANSETRON 4 MG/2 ML VIAL IVPUSH PRN (19:57)
[2019-03-21 20:06] LABS: ANISOCYTOSIS 1+; MACROCYTOSIS 1+; PLATELET ESTIMATE ADEQUATE
[2019-03-22] MEDS ORDERED: PIPERACILLIN/TAZOBACTAM 4.5 GM VIAL IVPB ONE ×2 (00:52→09:49)
[2019-03-22] MEDS ORDERED: DEXTROSE 5%-WATER 100 ML IVPB ONE ×2 (00:53→09:49)
[2019-03-22] MEDS: PIPERACILLIN/TAZOB 4.5 GM 4.5 GM in DEXTROSE 5%-WATER 100 ML IVPB SCH ×3 (01:47→18:06)
[2019-03-22] MEDS: HYDROCORTISONE 1% TOPICAL CREAM 30 GM TUBE TP SCH ×3 (06:11→14:03)
[2019-03-22 07:51] LABS: BASO % 2.1 % (0-2.0); EOS % 2.3 % (0-4.5); HEMATOCRIT 35.7 % (32.4-45.2); HEMOGLOBIN 12.6 GM/dL (10.7-15.3); LYMPH % 52.9 % (8-40); MCH 33.3 pg (25.7-33.7); MCHC 35.3 g/dl (32.0-36.0); MEAN CELL VOLUME 94.4 fl (80-96); NEUT % 35.7 % (42.8-82.8); PLATELET COUNT 223 K/MM3 (134-434); RBC 3.78 M/mm3 (3.60-5.2); RDW 15.7 % (11.6-15.6); WHITE BLOOD COUNT 2.5 K/mm3 (4.0-10.0)
[2019-03-22 08:13] VITALS: BP 149/93; PULSE 66; TEMP 98
[2019-03-22 08:29] LABS: BLOOD UREA NITROGEN 15.3 mg/dL (7-18); CALCIUM 9.1 mg/dL (8.5-10.1); POTASSIUM 4.2 mmol/L (3.5-5.1)
[2019-03-22] MEDS: DOXYCYCLINE HYCLATE 100 MG CAPSULE PO SCH ×2 (09:59→17:40)
--- NOTE | 2019-03-22 13:32 | DS ---
Physical Examination Vital Signs: Vital Signs Temperature 98 F 03/22/19 08:04 Pulse Rate 66 03/22/19 08:04 Respiratory Rate 15 03/22/19 08:04 Blood Pressure 149/93 03/22/19 08:04 O2 Sat by Pulse Oximetry (%) 98 03/22/19 09:00 Findings/Remarks: 53 y/o female with metastatic breast Ca / H/BRCa-1 / HX Ovarian Ca / neutropenic admitted found to have left axillary abscess, has been holding Ibrance, following Onc recommendation for last 3 days. Progressive decrease in abscess size -- all c/s negative to date, continue neutropenic precautions and will continue 2 additional days of Abx discussed with ID and oncology coverage discharge today scheduled blood work in am --[facility] diagnostic Patient scheduled to follow up with out patient oncology this week -- will call for appointment in am neutropenic precautions at home Past History h/o BRCA1 positivity h/o ovarian cancer 2000, treaed by Dr. Dee , s/p surgery, carbo/taxol x several cycles Recurrence in 2002 s/p doxil x 8 cycles. In remission since then Rt. breast cancer 2016--s/p b/l mastectomies. No adjuvant therapy. Treated at [facility] by Dr. Gonzalez Recurrence in 2017 -- [place] [facility] [place] [facility]. Received olapari, then letrozole + ibrance briefly and more recently faslodex + ibrance Microbiology 03/16/19 12:38 Blood - Peripheral Venous Blood Culture - Final NO GROWTH AFTER 5 DAYS INCUBATION 03/16/19 12:39 Blood - Peripheral Venous Blood Culture - Final NO GROWTH AFTER 5 DAYS INCUBATION 03/17/19 13:45 Urine For Antigen Detection Legionella Antigen - Final 03/17/19 13:45 Urine For Antigen Detection Streptococcus pneumoniae Antigen (M - Final Active Medications Alprazolam (Xanax -) 0.25 mg PO Q12H PRN PRN Reason: ANXIETY Cyclobenzaprine HCl (Flexeril -) 5 mg PO TID PRN PRN Reason: MUSCLE SPASMS Diphenhydramine HCl (Benadryl Oral Solution -) 50 mg PO Q6H PRN PRN Reason: FOR ITCHING Doxycycline Hyclate (Vibramycin -) 100 mg PO BID@1000,1800 DAVIN Last Admin: 03/21/19 09:25 Dose: 100 mg Hydrocortisone (Hytone 1% Cream -) 1 applic TP TID DAVIN Last Admin: 03/21/19 15:58 Dose: Not Given Piperacillin Sod/Tazobactam (Sod 4.5 gm/ Dextrose) 100 mls @ 200 mls/hr IVPB Q8H-IV DAVIN; Protocol Last Admin: 03/21/19 09:25 Dose: 200 mls/hr Ibuprofen (Motrin -) 600 mg PO Q4H PRN PRN Reason: fever/ pain 1-5 Last Admin: 03/17/19 10:27 Dose: 600 mg Non-Formulary Medication (Levalbuterol Tartrate [Xopenex Hfa]) 15 gm IH PRN PRN PRN Reason: ASTHMA Non-Formulary Medication (Palbociclib [Ibrance]) 125 mg PO ASDIR DAVIN Ondansetron HCl (Zofran Injection) 4 mg IVPUSH Q4H PRN PRN Reason: NAUSEA Last Admin: 03/20/19 20:57 Dose: 4 mg Constitutional: Yes: Well Nourished, No Distress, Calm Eyes: Yes: Conjunctiva Clear, EOM Intact HENT: Yes: Atraumatic, Normocephalic Neck: Yes: Supple, Trachea Midline Cardiovascular: Yes: Regular Rate and Rhythm Respiratory: Yes: CTA Bilaterally Gastrointestinal: Yes: Normal Bowel Sounds ...Rectal Exam: Yes: Deferred Renal/: Yes: WNL Musculoskeletal: Yes: Other (mastectomy) Extremities: Yes: WNL Edema: No Peripheral Pulses WNL: Yes Integumentary: Yes: WNL Neurological: Yes: Alert, Oriented ...Motor Strength: WNL Psychiatric: Yes: WNL, Alert, Oriented Labs: CBC, BMP 03/22/19 07:15 03/22/19 07:15 Discharge Summary Reason For Visit: CHEST PAIN,PNEUMONIA Current Active Problems Breast cancer metastasized to axillary lymph node (Acute) Breast cancer metastasized to bone (Acute) Breast cancer metastasized to intrathoracic lymph node (Acute) Chest pain (Acute) Axillary abscess left side ( acute) Neutropenic precautions at time of discharge ANC 900 patient understands and will comply with d/c instructions Condition: Improved - Instructions Diet, Activity, Other Instructions: NEUTROPENIC PRECAUTIONS Disposition: HOME - Home Medications Comprehensive Discharge Medication List: Ambulatory Orders Levalbuterol Tartrate [Xopenex Hfa] 15 gm IH PRN PRN 08/06/14 Cyclobenzaprine HCl [Flexeril -] 5 mg PO PRN 03/01/17 Alprazolam [Xanax] 0.25 mg PO Q12H PRN 03/16/19 Fulvestrant [Faslodex] 250 mg IM ASDIR 03/16/19 Ondansetron HCl [Zofran] 8 mg PO TID PRN 03/16/19 Palbociclib [Ibrance] 125 mg PO ASDIR 03/16/19 -- has been on hold for 3 days on hold due to neutropenia Zosyn day #7 on 03/22/19 doxycycline day #6 on 03/22/19 will continue 2 additional days
[2019-03-22] MEDS: ONDANSETRON 4 MG/2 ML VIAL IVPUSH PRN (17:00)
== END 2019-03-22 18:10 | disposition home or self-care (01) | DRG 603 ==
LOC: JER 11:08 → JERBED 16:50 → J6S 21:41
PROVIDERS: ADMIT Family Medicine; ATTEND Family Medicine
DX: L02.412 Cutaneous abscess of left axilla (principal); C79.51 Secondary malignant neoplasm of bone; C77.1 Secondary and unspecified malignant neoplasm of intrathoracic lymph nodes; C77.3 Secondary and unspecified malignant neoplasm of axilla and upper limb lymph nodes; R07.9 Chest pain, unspecified; K21.9 Gastro-esophageal reflux disease without esophagitis; R11.2 Nausea with vomiting, unspecified; R00.2 Palpitations; C50.919 Malignant neoplasm of unspecified site of unspecified female breast; J40 Bronchitis, not specified as acute or chronic; E66.9 Obesity, unspecified; Z68.39 Body mass index [BMI] 39.0-39.9, adult; D70.1 Agranulocytosis secondary to cancer chemotherapy
CPT/HCPCS: 36415; 71045-TC-FY; 71046-TC-FY; 71275-TC; 76882-TC-RT-FY; 80048; 80053; 83735; 84443; 84484; 84703; 85025; 85027; 85610; 85730; 87040; 87899; 93005; 93010; 93971-TC; 94640; 99283-25; J0131

== ENCOUNTER 2019-04-18 20:50 | Emergency (ER) | payer OTHER ==
[2019-04-18 21:11] VITALS: TEMP 98.2; BMI 39.1
--- NOTE | 2019-04-18 21:36 | PDOC ---
History of Present Illness - General Chief Complaint: Blood Pressure Problem Stated Complaint: ELEVATED BP Time Seen by Provider: 04/18/19 21:36 History Source: Patient Exam Limitations: No Limitations - History of Present Illness Initial Comments: Pt is a 53 yo F, with PMH of ovarian CA ([id number], in remission), breast CA ( mets to bone, s/p b/l mastectomy, on Ibrance and Faslodex), and migraines, who is presenting due to high BP and headaches. Pt states she has no history of HTN , and has been taking her BP since yesterday with elevations to 170s systolic. PT also endorses head pressure since 7 pm today which is different from her typical migraine. Pt has been taking reglan for chemo-induced nausea, but has only taken 3 doses so far. Pt has also noticed swelling in her LLE with leg "tightness". Pt denies any recent fevers/chills, vision changes, syncope, chest pain, palpitations, SOB, vomiting, abdominal pain, urinary symptoms, or diarrhea /constipation. Allergies: NKDA PCP: Dr. Vines Onc: Dr. Guzman Neuro: Dr Harrison (migraines) -- was previously on topimax, now only takes excedrin GI: Dr. Gonzalez (nausea, reflux) Social: Pt denies any cigarette, alcohol, or drug use. Pt denies any recent travel or sick contacts. Surgical: complete hysterectomy, b/l mastectomy, LN biopsies Family: BRCA positive 04/18/19 22:19 04/18/19 22:31 04/18/19 22:33 Past History - Travel Traveled outside of the country in the last 30 days: No Close contact w/someone who was outside of country & ill: No - Past Medical History Allergies/Adverse Reactions: Allergies Allergy/AdvReac Type Severity Reaction Status Date / Time Shellfish Allergy Unknown Verified 03/16/19 11:20 acetaminophen [From Vicodin] Allergy Verified 03/16/19 11:20 codeine Allergy Verified 03/16/19 11:20 hydrocodone [From Vicodin] Allergy Verified 03/16/19 11:20 kiwi Allergy Verified 03/16/19 11:20 [Kiwi (Actinidia Chinensis)] vancomycin Allergy Verified 03/16/19 11:20 PISTACHIOS Allergy TICKLE Uncoded 03/16/19 11:20 SENSATION TO THROAT Home Medications: Ambulatory Orders Levalbuterol Tartrate [Xopenex Hfa] 15 gm IH PRN PRN 08/06/14 Cyclobenzaprine HCl [Flexeril -] 5 mg PO PRN 03/01/17 Alprazolam [Xanax] 0.25 mg PO Q12H PRN 03/16/19 Fulvestrant [Faslodex -] 250 mg IM ASDIR 03/16/19 Hydrocortisone 1% Cream [Hytone 1% Cream -] 1 applic TP TID tube 03/22/19 Ibuprofen [Motrin -] 600 mg PO Q4H PRN tablet 03/22/19 Metoclopramide HCl [Reglan -] 10 mg PO DAILY 04/19/19 Palbociclib [Ibrance] 125 mg PO DAILY 04/19/19 Pantoprazole Sodium 40 mg PO DAILY 04/19/19 Anemia: No Asthma: Yes Cancer: Yes (BREAST CA 02/17 RT AND CHEMO,ovarian w METS 06/05 & 06/07) Cardiac Disorders: Yes (pvc's) CVA: No COPD: No CHF: No Dementia: No Diabetes: Yes (STERIOD INDUCED TRANSIENT DIABETES) GI Disorders: Yes (GERD, DIVERTICULOSIS) Disorders: No HTN: No Hypercholesterolemia: No Liver Disease: No Seizures: No Thyroid Disease: No - Surgical History Abdominal Surgery: Yes (VENTRAL HERNIA REPAIR) Appendectomy: Yes Cardiac Surgery: No Cholecystectomy: No Lung Surgery: No Neurologic Surgery: No - Suicide/Smoking/Psychosocial Hx Smoking Status: No Smoking History: Never smoked Have you smoked in the past 12 months: No Number of Cigarettes Smoked Daily: 0 If you are a former smoker, when did you quit?: 1993 Hx Alcohol Use: No Drug/Substance Use Hx: No Substance Use Type: None Hx Substance Use Treatment: No Review of Systems - Review of Systems Able to Perform ROS?: Yes Is the patient limited [place] proficient: No Constitutional: Yes: Weight Stable. No: Chills, Diaphoresis, Fever, Loss of Appetite, Malaise, Weakness HEENTM: No: Blurred Vision, Recent change in vision, Double Vision, Nose Congestion, Throat Pain, Throat Swelling, Difficulty Swallowing Respiratory: No: Cough, Orthopnea, Shortness of Breath Cardiac (ROS): Yes: Edema (LLE swelling and "tightness"). No: Chest Pain, Irregular Heart Rate, Lightheadedness, Palpitations, Syncope, Chest Tightness ABD/GI: No: Constipated, Diarrhea, Nausea, Poor Appetite, Poor Fluid Intake, Vomiting : No: Burning, Dysuria, Frequency, Pain, Urgency Musculoskeletal: No: Back Pain, Muscle Pain, Muscle Weakness Integumentary: No: Rash Neurological: Yes: Headache. No: Numbness, Paresthesia, Weakness, Unsteady Gait , Ataxia, Dizziness Psychiatric: No: Sleep Pattern Change, Change in Appetite Endocrine: No: Increased Urine, Change in Weight Hematologic/Lymphatic: No: Anemia, Blood Clots (no DVT or PE in the past), Easy Bleeding, Easy Bruising All Other Systems: Reviewed and Negative *Physical Exam - Vital Signs Last Vital Signs Temp Pulse Resp BP Pulse Ox 98.2 F 75 19 195/89 H 97 04/18/19 21:07 04/18/19 21:07 04/18/19 21:07 04/18/19 21:07 04/18/19 21:07 - Physical Exam Comments: HTN (195/89 on presentation), pt afebrile. Pt in NAD, lying on the bed comfortably. Obese body habitus. Pt alert and oriented x3. office director generally intact, muscular strength and sensation intact. Cerebellar exam WNL. No midline spinal tenderness, step-offs, or crepitus. Head normocephalic, atraumatic. Eyes PERRLA, EOMI. Oropharynx without erythema or exudates, no LAD b/l. No nasal congestion, hearing intact. LLE with mild swelling at the calf compared to the left, no pitting edema. Clear heart sounds, S1/S2, no JVD, or heart murmur. Clear lung sounds, no respiratory distress, wheezes, crackles, or accessory muscle use. No abdominal or CVA tenderness to palpation, no rebound, no guarding. Abdomen soft, non-distended, and with normoactive bowel sounds. Skin without jaundice or rash. 04/18/19 22:35 04/18/19 22:45 ED Treatment Course - LABORATORY CBC & Chemistry Diagram: 04/18/19 22:00 04/18/19 23:25 Medical Decision Making - Medical Decision Making Pt was seen at bedside, also will be seen by attending Dr. Edwards. Pt presenting with HTN and headache, with no FNDs. PT on chemotherapy for metastatic breast CA. Will evaluate with labs, chest x-ray. Will forego head CT , as pt has presented with similar complaints (had negative CT 2 weeks ago, negative CTA last month), with no FNDs. Will obtain EKG and treat with anti- hypertensives as appropriate. Provided 1 g ofirmev, 10 mg IV reglan, and 25 mg IV benadryl for improvement of headache. Will continue to reassess pt and monitor for symptomatic improvement. 04/18/19 22:46 ECG: Sinus with frequent PVCs. HR 67, MT 134, QRS 88, QTc 460. PVCs are new from 03/2019, although pt states "I frequently have early beats". CBC WNL CMP hemolyzed, re-sent to lab. 04/18/19 23:25 CMP WNL Trop negative, pt has known PVCs LE doppler with no DVT PT can f/u with PCP regarding BP. BP was improved after pain control for the migraine. Strict return precautions provided with pt understanding. 04/19/19 01:12 *DC/Admit/Observation/Transfer Diagnosis at time of Disposition: Hypertension Qualifiers: Hypertension type: essential hypertension Qualified Code(s): I10 - Essential ( primary) hypertension Headache Qualifiers: Headache type: unspecified Headache chronicity pattern: acute headache Intractability: not intractable Qualified Code(s): R51 - Headache Breast cancer metastasized to bone Qualifiers: Laterality: unspecified laterality Qualified Code(s): C50.919 - Malignant neoplasm of unspecified site of unspecified female breast; C79.51 - Secondary malignant neoplasm of bone - Discharge Dispostion Disposition: HOME Condition at time of disposition: Improved Decision to Admit order: No - Referrals Referrals: Danii Vines MD [Primary Care Provider] - - Patient Instructions Printed Discharge Instructions: DI for High Blood Pressure Additional Instructions: You were seen in the ER today for high blood pressure. The results of your labs and imaging today were normal. Please follow-up with your primary care doctor within 1-2 days to discuss your visit and make sure your symptoms have improved. Please return to the ER if you have any worsening pain, development of fevers or chills, loss of consciousness, inability to tolerate food or fluids , or any other concerns. - Post Discharge Activity
[2019-04-18] MEDS ORDERED: ACETAMINOPHEN 1000 MG/100 ML VIAL (NON FORMULARY) IVPB ONE ×2 (22:09→23:00)
[2019-04-18] MEDS ORDERED: METOCLOPRAMIDE HCL INJECTION 10 MG/2 ML VIAL IVPUSH ONE ×2 (22:10→23:00)
[2019-04-18 22:20] LABS: BASO % 1.5 % (0-2.0); EOS % 2.8 % (0-4.5); HEMATOCRIT 39.5 % (32.4-45.2); HEMOGLOBIN 13.4 GM/dL (10.7-15.3); MCH 31.8 pg (25.7-33.7); MCHC 33.9 g/dl (32.0-36.0); MEAN CELL VOLUME 93.9 fl (80-96); MEAN PLT VOLUME 9.5 fl (7.5-11.1); MONO % 13.6 % (3.8-10.2); NEUT % 36.1 % (42.8-82.8); PLATELET COUNT 147 K/MM3 (134-434); RBC 4.21 M/mm3 (3.60-5.2); RDW 15.9 % (11.6-15.6); WHITE BLOOD COUNT 4.2 K/mm3 (4.0-10.0)
[2019-04-18] MEDS ORDERED: ACETAMINOPHEN INJECTION 100 ML IVPB ONE (22:21)
[2019-04-18 22:44] LABS: INR 1.01 (0.83-1.09); PROTHROMBIN TIME (PATIENT) 11.9 SEC (9.7-13.0)
[2019-04-18 22:46] LABS: ACTIVATED PTT 29.9 SECONDS (25.2-36.5)
[2019-04-18] MEDS ORDERED: METOCLOPRAMIDE HCL INJECTION 10 MG/2 ML VIAL ONE (23:01)
--- NOTE | 2019-04-18 23:12 | PDOC ---
Documentation entered by Mary Grace Miller SCRIBE, acting as scribe for Ashlee Edwards MD. Ashlee Edwards MD: This documentation has been prepared by the scribe, Mary Grace Miller SCRIBE, under my direction and personally reviewed by me in its entirety. I confirm that the documentation accurately reflects all work, treatment, procedures, and medical decision making performed by me. Attending Attestation - Resident Resident Name: JuanaYanira - ED Attending Attestation I have performed the following: I have examined & evaluated the patient, The case was reviewed & discussed with the resident, I agree w/resident's findings & plan, Exceptions are as noted - HPI HPI: 04/18/19 22:36 The patient is a 53-year-old female with a past medical history significant for Ovarian CA (in remission), Breast CA s/p bilateral mastectomy who presents to the emergency department with elevated blood pressure and head pressure. The patient reports since yesterday shes been having elevated systolic BP to 170s denies a history of high BP. The patient reports associated symptoms of head pressure since 7:00 pm today. Denies chest pain, vision changes, or shortness of breath. PCP: Dr. Vines Cardiology: Dr. Fuller Oncology: Dr. Harrell at [facility] and Dr. Fu at [place] - Physicial Exam PE: GENERAL: Awake, alert, and fully oriented, in no acute distress HEAD: No signs of trauma EYES: PERRLA, EOMI, sclera anicteric, conjunctiva clear ENT: Auricles normal inspection, hearing grossly normal, nares patent, oropharynx clear without exudates. Moist mucosa NECK: Normal ROM, supple, no lymphadenopathy, JVD, or masses LUNGS: Breath sounds equal, clear to auscultation bilaterally. No wheezes, and no crackles HEART: Regular rate and rhythm, normal S1 and S2, no murmurs, rubs or gallops ABDOMEN: Soft, nontender, normoactive bowel sounds. No guarding, no rebound. No masses EXTREMITIES: Normal range of motion, no edema. No clubbing or cyanosis. No cords, erythema, or tenderness NEUROLOGICAL: Cranial nerves II through XII grossly intact. Normal speech, normal gait. Motor and sensation intact SKIN: Warm, dry, normal turgor, no rashes or lesions noted. - Medical Decision Making Pt with elevated BP, no prior history of BP elevations above SBP 140. +Headache , +c/o L leg swelling. No significant swelling on exam, however, patient with history of CA, will check for DVT. Will check labs, EKG. Will decide on meds pending results.
[2019-04-18] MEDS ORDERED: TIZANIDINE HCL 2 MG TABLET PO ONE (23:15)
[2019-04-18 23:59] LABS: ALBUMIN 3.7 g/dl (3.4-5.0); ALK PHOS 69 U/L (45-117); ANION GAP 12 MMOL/L (8-16); BILIRUBIN,TOTAL 0.4 mg/dL (0.2-1); CALCIUM 9.3 mg/dL (8.5-10.1); CHLORIDE 105 mmol/L (98-107); CO2 22 mmol/L (21-32); CREATININE 1.2 mg/dL (0.55-1.3); GLUCOSE,RANDOM 130 mg/dL (74-106); SGOT/AST 67 U/L (15-37); SGPT/ALT 112 U/L (13-61); SODIUM 139 mmol/L (136-145); TOT PROT 6.6 g/dl (6.4-8.2)
[2019-04-19 01:00] LABS: N-TERMINAL BNP 110.5 pg/ml (5-125)
[2019-04-19 01:05] VITALS: BP 136/76
[2019-04-19 01:07] VITALS: PULSE 73
--- NOTE | 2019-04-19 16:52 | EKG ---
Test Reason : Blood Pressure : / mmHG Vent. Rate : 067 BPM Atrial Rate : 067 BPM P-R Int : 134 ms QRS Dur : 088 ms QT Int : 436 ms P-R-T Axes : 028 008 -02 degrees QTc Int : 460 ms SINUS RHYTHM WITH FREQUENT PREMATURE VENTRICULAR COMPLEXES LEFT ATRIAL ENLARGEMENT BORDERLINE ECG WHEN COMPARED WITH ECG OF 16-MAR-2019 11:10, PREMATURE VENTRICULAR COMPLEXES ARE NOW PRESENT Confirmed by MD GREGORY, ANTONIO ([id number]) on 04/19/2019 4:51:59 PM Referred By: Confirmed By:ANTONIO JENKINS MD
== END 2019-04-19 01:25 | disposition home or self-care (01) ==
LOC: JER 20:50
PROC: 3E033NZ Introduction of Analgesics, Hypnotics, Sedatives into Peripheral Vein, Percutaneous Approach (ICD-10-PCS; principal; 2019-04-18)
PROC: 3E033GC Introduction of Other Therapeutic Substance into Peripheral Vein, Percutaneous Approach (ICD-10-PCS; 2019-04-18)
PROC: 3E033GC Introduction of Other Therapeutic Substance into Peripheral Vein, Percutaneous Approach (ICD-10-PCS; 2019-04-18)
DX: I10 Essential (primary) hypertension (principal); C50.919 Malignant neoplasm of unspecified site of unspecified female breast; C79.51 Secondary malignant neoplasm of bone; Z90.13 Acquired absence of bilateral breasts and nipples; Z85.43 Personal history of malignant neoplasm of ovary; E09.9 Drug or chemical induced diabetes mellitus without complications; T38.0X5A Adverse effect of glucocorticoids and synthetic analogues, initial encounter; Y92.038 Other place in apartment as the place of occurrence of the external cause
CPT/HCPCS: 36415; 71046-TC-FY; 80053; 82550; 82553; 83880; 84484; 85025; 85610; 85730; 93005; 93010; 93970-TC; 99283-25; J0131

== ENCOUNTER 2019-06-12 10:19 | Day surgery (SDC) | payer OTHER ==
[2019-05-14 11:34] VITALS: BMI 39.7
[2019-06-12 12:45] VITALS: TEMP 98
[2019-06-12 13:36] VITALS: BP 154/86; PULSE 64
--- NOTE | 2019-06-15 17:36 | PATH ---
Surgical Pathology Report Patient Name: ROBYN ANAYA [facility]. Rec. #: [id number] /Age/Gender: 1965 (Age: 53) / F Account: [id number] Location: [facility] Taken: 06/12/2019 Received: 06/12/2019 Reported: 06/15/2019 Physicians: Юлия Gonzalez M.D. Specimen(s) Received A: GASTRIC ANTRUM B: GE JUNCTION C: MID ESOPHAGUS Clinical History Abnormal PET scan Postoperative diagnosis: Reflux esophagitis Final Diagnosis A. GASTRIC ANTRUM, BIOPSY: GASTRIC ANTRAL MUCOSA WITH MILD CHRONIC GASTRITIS. IMMUNOHISTOCHEMICAL STAIN FOR H. PYLORI IS NEGATIVE. B. GE JUNCTION, BIOPSY: SQUAMOCOLUMNAR MUCOSA WITH MILD TO MODERATE CHRONIC INFLAMMATION AND CHANGES OF MODERATE REFLUX ESOPHAGITIS. NO INTESTINAL METAPLASIA OR DYSPLASIA IDENTIFIED. C. MID ESOPHAGUS, BIOPSY: SQUAMOUS MUCOSA WITH CHANGES OF MILD REFLUX ESOPHAGITIS. Electronically Signed Iona Kaur M.D. Gross Description A. Received in formalin, labeled "gastric antrum biopsy" are 2 pillai, irregular portions of soft tissue measuring 0.4 and 0.5 cm. in greatest dimension. The specimens are submitted in toto in one cassette. B. Received in formalin, labeled "GE junction biopsy" are 4 pillai, irregular portions of soft tissue ranging from 0.2-0.4 cm. in greatest dimension. The specimens are submitted in toto in one cassette. C. Received in formalin, labeled "mid esophagus biopsy" are 3 pillai, irregular portions of soft tissue ranging from 0.1-0.3 cm. in greatest dimension. The specimens are submitted in toto in one cassette. 06/12/2019 saudi06/12/2019
== END 2019-06-12 14:03 | disposition home or self-care (01) ==
LOC: JASU-ENDO 10:19
PROVIDERS: ATTEND Internal Medicine Gastroenterology
PROC: 0DB68ZX Excision of Stomach, Via Natural or Artificial Opening Endoscopic, Diagnostic (ICD-10-PCS; 2019-06-12)
PROC: 0DB28ZX Excision of Middle Esophagus, Via Natural or Artificial Opening Endoscopic, Diagnostic (ICD-10-PCS; principal; 2019-06-12 11:00)
DX: K21.9 Gastro-esophageal reflux disease without esophagitis (principal); K44.9 Diaphragmatic hernia without obstruction or gangrene; K22.10 Ulcer of esophagus without bleeding
CPT/HCPCS: 88305-TC; 88342-TC

== ENCOUNTER 2019-09-14 16:47 | Emergency (ER) | payer OTHER ==
--- NOTE | 2019-09-14 16:57 | PDOC ---
Rapid Medical Evaluation Chief Complaint: Pain, Acute Time Seen by Provider: 09/14/19 16:54 Medical Evaluation: Allergies Allergy/AdvReac Type Severity Reaction Status Date / Time Shellfish Allergy Unknown Verified 03/16/19 11:20 acetaminophen [From Vicodin] Allergy Verified 03/16/19 11:20 codeine Allergy Verified 03/16/19 11:20 hydrocodone [From Vicodin] Allergy Verified 03/16/19 11:20 kiwi Allergy Verified 03/16/19 11:20 [Kiwi (Actinidia Chinensis)] vancomycin Allergy Verified 03/16/19 11:20 PISTACHIOS Allergy TICKLE Uncoded 03/16/19 11:20 SENSATION TO THROAT 09/14/19 16:55 This patient had rapid medical evaluation in triage cc: felt pop in right knee HPI: Patient reports feeling a pop sensation while walking down stairs at work. Complaining of inability to bear weight. Denies numbness or tingling in leg PE: NAD unlabored breathing ext: right knee, no tenderness, able to extend and flex Orders: xray of right knee This patient will proceed to ed for further evaluation. Discharge Disposition - Diagnosis Right knee pain - Referrals - Patient Instructions - Post Discharge Activity
[2019-09-14 16:58] VITALS: BP 157/62; PULSE 61; TEMP 97.8; BMI 37.4
--- NOTE | 2019-09-14 17:22 | PDOC ---
History of Present Illness - General Chief Complaint: Pain, Acute Stated Complaint: RT KNEE INJURY Time Seen by Provider: 09/14/19 16:54 - History of Present Illness Initial Comments: 09/14/19 17:21 54-year-old female with a past medical history of stage IV breast cancer presents for evaluation of right knee pain. Patient states she was coming out of an elevator and felt a sharp pain in her right knee Past History - Past Medical History Allergies/Adverse Reactions: Allergies Allergy/AdvReac Type Severity Reaction Status Date / Time Shellfish Allergy Unknown Verified 03/16/19 11:20 acetaminophen [From Vicodin] Allergy Verified 03/16/19 11:20 codeine Allergy Verified 03/16/19 11:20 hydrocodone [From Vicodin] Allergy Verified 03/16/19 11:20 kiwi Allergy Verified 03/16/19 11:20 [Kiwi (Actinidia Chinensis)] vancomycin Allergy Verified 03/16/19 11:20 PISTACHIOS Allergy TICKLE Uncoded 03/16/19 11:20 SENSATION TO THROAT Home Medications: Ambulatory Orders Fulvestrant [Faslodex -] 250 mg IM ASDIR 03/16/19 Metoclopramide HCl [Reglan -] 10 mg PO PRN PRN 04/19/19 Palbociclib [Ibrance] 125 mg PO DAILY 04/19/19 Pantoprazole Sodium 40 mg PO DAILY 04/19/19 Alprazolam [Xanax] 0.25 mg PO DAILY 05/14/19 Albuterol Sulfate Inhaler - [Ventolin HFA Inhaler -] 1 - 2 inh PO PRN PRN HYDROmorphone [Dilaudid -] 2 mg PO PRN PRN 06/11/19 Levalbuterol HCl [Xopenex] 1.25 mg IH PRN PRN 06/11/19 Mag Carb/Aluminum Hydrox/Algin [Gaviscon Liquid] 30 ml PO Q4H PRN #355 oz Anemia: No Asthma: Yes Cancer: Yes (BREAST CA 02/17 RT AND CHEMO,OVARIAN W METS 06/05 & 06/07) Cardiac Disorders: Yes (pvc's) CVA: No COPD: No CHF: No Dementia: No Diabetes: Yes (STERIOD INDUCED TRANSIENT DIABETES) GI Disorders: Yes (ATROPHIC GASTRITIS, COLON POLYPS, NERD, DIVERTICULOSIS) Disorders: No HTN: No Hypercholesterolemia: No Liver Disease: No Seizures: No Thyroid Disease: No - Surgical History Abdominal Surgery: Yes (VENTRAL HERNIA REPAIR) Appendectomy: Yes Cardiac Surgery: No Cholecystectomy: No Lung Surgery: No Neurologic Surgery: No - Psycho Social/Smoking Cessation Hx Smoking Status: No Smoking History: Never smoked Have you smoked in the past 12 months: No Number of Cigarettes Smoked Daily: 0 If you are a former smoker, when did you quit?: 1993 Hx Alcohol Use: No Drug/Substance Use Hx: No Substance Use Type: None Hx Substance Use Treatment: No Review of Systems - Review of Systems Musculoskeletal: Yes: Joint Pain *Physical Exam - Vital Signs Last Vital Signs Temp Pulse Resp BP Pulse Ox 97.8 F 61 16 157/62 97 09/14/19 16:50 09/14/19 16:50 09/14/19 16:50 09/14/19 16:50 09/14/19 16:50 - Physical Exam 09/14/19 17:21 Right knee skin color and temperature normal range of motion is slightly limited 0-30 but beyond that causes pain no instability or gross sensorimotor deficits thighs and calves are soft and nontender normal range of motion of the hip and ankle. No medial lateral joint line tenderness mild lateral patellofemoral facet tenderness no medial tenderness no apprehension Medical Decision Making - Medical Decision Making 09/14/19 17:21 X-rays the right knee show no evidence of fracture trauma or destructive process. Right knee strain weight-bear as tolerated with crutches follow-up with Ortho Discharge - Discharge Information Problems reviewed: Yes Clinical Impression/Diagnosis: Right knee pain Condition: Stable Disposition: HOME - Admission No - Follow up/Referral Referrals: Danii Vines MD [Primary Care Provider] - George Harrell DO [Staff Physician] - - Patient Discharge Instructions Additional Instructions: You may weight-bear as tolerated crutches follow-up with orthopedic surgery in 2 to 3 days without fail for further evaluation and treatment options continue your home medications as directed and return to the emergency room should symptoms worsen - Post Discharge Activity
== END 2019-09-14 17:43 | disposition home or self-care (01) ==
LOC: JERFT 16:47
DX: S86.811A Strain of other muscle(s) and tendon(s) at lower leg level, right leg, initial encounter (principal); X58.XXXA Exposure to other specified factors, initial encounter; Y93.01 Activity, walking, marching and hiking; Y92.89 Other specified places as the place of occurrence of the external cause; Y99.8 Other external cause status; Z91.013 Allergy to seafood; Z88.1 Allergy status to other antibiotic agents; Z88.5 Allergy status to narcotic agent; Z91.018 Allergy to other foods; J45.909 Unspecified asthma, uncomplicated; K21.9 Gastro-esophageal reflux disease without esophagitis; E09.9 Drug or chemical induced diabetes mellitus without complications; Z85.3 Personal history of malignant neoplasm of breast; Z85.43 Personal history of malignant neoplasm of ovary
CPT/HCPCS: 73562-TC-RT-FY; 99283-25

== ENCOUNTER 2020-09-20 19:51 | Emergency (ER) | payer OTHER ==
[2020-09-20 20:24] VITALS: BP 145/79; PULSE 83; TEMP 98.7; BMI 37.0
[2020-09-20] MEDS ORDERED: DICLOFENAC SODIUM 75 MG TABLET.DR PO ONE (20:43)
== END 2020-09-20 21:37 | disposition home or self-care (01) ==
LOC: JER 19:51
DX: M25.571 Pain in right ankle and joints of right foot (principal)
CPT/HCPCS: 99283-25

== ENCOUNTER 2021-04-07 04:34 | Day surgery (SDC) | payer OTHER ==
[2021-04-05 16:47] VITALS: BMI 33.3
[2021-04-07 09:13] VITALS: TEMP 97.1
[2021-04-07 10:34] VITALS: BP 135/55; PULSE 66
== END 2021-04-07 11:13 | disposition home or self-care (01) ==
LOC: JASU-ENDO 04:34
PROVIDERS: ATTEND Internal Medicine Gastroenterology
PROC: 0DBM8ZX Excision of Descending Colon, Via Natural or Artificial Opening Endoscopic, Diagnostic (ICD-10-PCS; 2021-04-07)
PROC: 0DB98ZX Excision of Duodenum, Via Natural or Artificial Opening Endoscopic, Diagnostic (ICD-10-PCS; 2021-04-07)
PROC: 0DB78ZX Excision of Stomach, Pylorus, Via Natural or Artificial Opening Endoscopic, Diagnostic (ICD-10-PCS; 2021-04-07)
PROC: 0DBN8ZX Excision of Sigmoid Colon, Via Natural or Artificial Opening Endoscopic, Diagnostic (ICD-10-PCS; principal; 2021-04-07 08:00)
DX: Z12.11 Encounter for screening for malignant neoplasm of colon (principal); K56.2 Volvulus; K64.8 Other hemorrhoids; K29.70 Gastritis, unspecified, without bleeding; Z86.010 Personal history of colon polyps; R93.3 Abnormal findings on diagnostic imaging of other parts of digestive tract; R10.12 Left upper quadrant pain
CPT/HCPCS: 82962

== ENCOUNTER 2021-06-01 16:40 | Inpatient (IN) | payer OTHER ==
[2021-06-01] MEDS ORDERED: SODIUM CHLORIDE 0.9% 500 ML INFUS.BAG IV ONE (18:52)
[2021-06-01] MEDS ORDERED: HYDROmorphone HCL CARPU-JECT 2 MG/1 ML DISP.SYRIN IVPUSH ONE (18:52)
[2021-06-01] MEDS ORDERED: HYDROmorphone HCl 2 MG/ML VIAL ONE (19:55)
[2021-06-01 21:08] LABS: EOS % 0.5 % (0-4.5); MCH 30.5 pg (25.7-33.7)
[2021-06-01 21:15] LABS: INR 1.38 (0.83-1.09); PROTHROMBIN TIME (PATIENT) 16.2 SEC (9.7-13.0)
[2021-06-01 21:22] LABS: BASO % 0.6 % (0-2.0); HEMATOCRIT 37.9 % (32.4-45.2); HEMOGLOBIN 13.2 GM/dL (10.7-15.3); LYMPH % 21.5 % (8-40); MCHC 34.8 g/dl (32.0-36.0); MEAN CELL VOLUME 87.6 fl (80-96); MEAN PLT VOLUME 8.8 fl (7.5-11.1); MONO % 7.5 % (3.8-10.2); NEUT % 69.9 % (42.8-82.8); PLATELET COUNT 122 10^3/uL (134-434); RBC 4.33 M/mm3 (3.60-5.2); RDW 18.6 % (11.6-15.6); WHITE BLOOD COUNT 6.5 K/mm3 (4.0-10.0)
[2021-06-01 21:27] LABS: URINE APPEARANCE CLEAR; URINE BILIRUBIN SMALL (NEGATIVE); URINE COLOR DK YELLOW; URINE GLUCOSE (UA) NEGATIVE (NEGATIVE); URINE KETONE TRACE (NEGATIVE)
[2021-06-01 21:28] LABS: EPI CELLS FEW /uL (0-25.1); PH,URINE 5.5 (5.0-8.0); URINE BACTERIA FEW /uL (0-1359); URINE LEUK ESTERASE TRACE (NEGATIVE); URINE NITRITE NEGATIVE (NEGATIVE); URINE PROTEIN TRACE (NEGATIVE); URINE RBC 0-3 /uL (0-23.9)
[2021-06-01 21:39] LABS: CALCIUM 9.3 mg/dL (8.5-10.1)
[2021-06-01 21:40] LABS: ALBUMIN 3.7 g/dl (3.4-5.0); BLOOD UREA NITROGEN 12.8 mg/dL (7-18)
[2021-06-01 21:44] LABS: BILIRUBIN,TOTAL 1.3 mg/dL (0.2-1); TOT PROT 7.6 g/dl (6.4-8.2)
[2021-06-01 22:04] LABS: LACTIC ACID 2.2 mmol/L (0.4-2.0)
[2021-06-02] MEDS ORDERED: ALPRAZolam 0.25 MG TABLET PO PRN (00:17)
[2021-06-02] MEDS ORDERED: ALBUTEROL SO4 2.5/IPRATROPIUM 0.5 INH SOL 3 ML VIAL.NEB. NEB ONE (02:06)
[2021-06-02] MEDS: D5-1/2NS+10 MEQ KCL - 10 MEQ/1,000 ML INFUS.BAG IV SCH (02:15)
[2021-06-02 03:45] VITALS: BMI 33.2
[2021-06-02] MEDS ORDERED: LEVALBUTEROL HCL 0.63 MG/3 ML VIAL.NEB. IH PRN (05:52)
[2021-06-02] MEDS: ALBUTEROL SO4 2.5/IPRATROPIUM 0.5 INH SOL 3 ML VIAL.NEB. NEB SCH ×2 (08:10→11:25)
[2021-06-02] MEDS: PANTOPRAZOLE 40 MG TABLET PO SCH (10:53)
[2021-06-02] MEDS: ENOXAPARIN NA (PORCINE) 40 MG/0.4 ML DISP.SYRIN SQ SCH (11:01)
[2021-06-02] MEDS ORDERED: DOXYCYCLINE INJECTION 100 MG in DEXTROSE 5%-WATER 100 ML IVPB SCH (11:15)
[2021-06-02] MEDS ORDERED: ALBUTEROL SO4 2.5/IPRATROPIUM 0.5 INH SOL 3 ML VIAL.NEB. NEB PRN ×2 (12:26→12:27)
[2021-06-02] MEDS ORDERED: DEXTROSE 5%-WATER 100 ML IVPB ONE (12:37)
[2021-06-02] MEDS ORDERED: DOXYCYCLINE HYCLATE 100 MG VIAL ONE (12:37)
[2021-06-02] MEDS ORDERED: LEVALBUTEROL HCL 0.63 MG/3 ML VIAL.NEB. IH SCH (12:45)
[2021-06-02] MEDS: HYDROmorphone HCL 2 MG TABLET PO PRN (12:53)
[2021-06-02] MEDS: methylPREDNISolone NA SUCC 40 MG/1 ML VIAL IVPUSH SCH ×2 (15:03→18:14)
[2021-06-02] MEDS: DOXYCYCLINE HYCLATE 100 MG CAPSULE PO SCH (18:17)
[2021-06-03] MEDS: methylPREDNISolone NA SUCC 40 MG/1 ML VIAL IVPUSH SCH ×3 (02:07→18:07)
[2021-06-03] MEDS: D5-1/2NS+10 MEQ KCL - 10 MEQ/1,000 ML INFUS.BAG IV SCH (02:07)
[2021-06-03] MEDS: ALBUTEROL SO4 0.083% IH SOL 2.5 MG/3 ML VIAL.NEB. NEB PRN ×2 (06:15→20:09)
[2021-06-03 09:06] LABS: HEMATOCRIT 37.7 % (32.4-45.2); LYMPH % 16.9 % (8-40); MCH 30.2 pg (25.7-33.7); MCHC 34.6 g/dl (32.0-36.0); MEAN CELL VOLUME 87.3 fl (80-96); MEAN PLT VOLUME 8.3 fl (7.5-11.1); MONO % 3.4 % (3.8-10.2); NEUT % 78.7 % (42.8-82.8); PLATELET COUNT 99 10^3/uL (134-434); RBC 4.32 M/mm3 (3.60-5.2); RDW 18.7 % (11.6-15.6); WHITE BLOOD COUNT 4.3 K/mm3 (4.0-10.0)
[2021-06-03 09:31] LABS: CALCIUM 9.4 mg/dL (8.5-10.1)
[2021-06-03 09:32] LABS: ALBUMIN 3.7 g/dl (3.4-5.0); BLOOD UREA NITROGEN 15.7 mg/dL (7-18); MAGNESIUM 2.3 mg/dL (1.8-2.4)
[2021-06-03 09:36] LABS: TOT PROT 7.4 g/dl (6.4-8.2)
[2021-06-03] MEDS: ENOXAPARIN NA (PORCINE) 40 MG/0.4 ML DISP.SYRIN SQ SCH (09:57)
[2021-06-03] MEDS: PANTOPRAZOLE 40 MG TABLET PO SCH (09:57)
[2021-06-03] MEDS: guaiFENesin 600 MG TABLET.ER (FP) PO SCH ×2 (09:57→21:00)
[2021-06-03] MEDS: DOXYCYCLINE HYCLATE 100 MG CAPSULE PO SCH ×2 (09:57→18:07)
[2021-06-03] MEDS ORDERED: POTASSIUM CHLORIDE 10 MEQ in SODIUM CHLORIDE 0.45% 1,000 ML IVPB SCH (10:00)
[2021-06-03] MEDS ORDERED: INSULIN SLIDING SCALE (NOVOLOG) 1 VIAL SQ SCH ×2 (11:00→14:47)
[2021-06-03] MEDS ORDERED: INSULIN (NOVOLOG) ASPART 100 UNITS/ML 10ML VIAL ONE (12:14)
[2021-06-03] MEDS: fentaNYL 12mcg/hr PATCH.TD72 TD SCH (13:14)
[2021-06-03] MEDS: BUDESONIDE/FORMETEROL FUMARATE 160/4.5 mcg INHALER IH SCH ×2 (15:29→21:01)
[2021-06-03] MEDS: INSULIN SLIDING SCALE (NOVOLOG) 1 VIAL SQ SCH (18:06)
[2021-06-03] MEDS: INSULIN (LEVEMIR) 100 UNITS/ML UNITS SQ SCH (21:08)
[2021-06-03] MEDS ORDERED: INSULIN (LEVEMIR) 100 UNITS/ML UNITS SQ SCH (22:00)
[2021-06-03] MEDS: ALPRAZolam 0.25 MG TABLET PO PRN (23:06)
[2021-06-04] MEDS ORDERED: SODIUM CHLORIDE FOR INHALATION 3 ML VIAL.NEB IH PRN (00:13)
[2021-06-04] MEDS: ALBUTEROL SO4 0.083% IH SOL 2.5 MG/3 ML VIAL.NEB. NEB PRN ×2 (00:33→05:30)
[2021-06-04] MEDS: methylPREDNISolone NA SUCC 40 MG/1 ML VIAL IVPUSH SCH ×3 (01:35→17:49)
[2021-06-04] MEDS: ALPRAZolam 0.25 MG TABLET PO PRN ×2 (03:49→21:10)
[2021-06-04] MEDS: INSULIN (LEVEMIR) 100 UNITS/ML UNITS SQ SCH ×2 (06:07→21:10)
[2021-06-04] MEDS: INSULIN SLIDING SCALE (NOVOLOG) 1 VIAL SQ SCH ×3 (06:07→17:10)
[2021-06-04] MEDS: PANTOPRAZOLE 40 MG TABLET PO SCH (10:07)
[2021-06-04] MEDS: ENOXAPARIN NA (PORCINE) 40 MG/0.4 ML DISP.SYRIN SQ SCH (10:07)
[2021-06-04] MEDS: guaiFENesin 600 MG TABLET.ER (FP) PO SCH ×2 (10:07→21:10)
[2021-06-04] MEDS: DOXYCYCLINE HYCLATE 100 MG CAPSULE PO SCH ×2 (10:07→17:49)
[2021-06-04] MEDS: BUDESONIDE/FORMETEROL FUMARATE 160/4.5 mcg INHALER IH SCH ×2 (10:09→21:12)
[2021-06-04 10:28] LABS: HEMATOCRIT 35.3 % (32.4-45.2); HEMOGLOBIN 12.1 GM/dL (10.7-15.3); LYMPH % 7.9 % (8-40); MCH 30.7 pg (25.7-33.7); MCHC 34.2 g/dl (32.0-36.0); MEAN CELL VOLUME 89.8 fl (80-96); MEAN PLT VOLUME 8.6 fl (7.5-11.1); MONO % 3.6 % (3.8-10.2); NEUT % 88.5 % (42.8-82.8); PLATELET COUNT 109 10^3/uL (134-434); RBC 3.93 M/mm3 (3.60-5.2); RDW 18.7 % (11.6-15.6); WHITE BLOOD COUNT 7.8 K/mm3 (4.0-10.0)
[2021-06-04 11:54] LABS: CALCIUM 9.4 mg/dL (8.5-10.1)
[2021-06-04 11:55] LABS: ALBUMIN 3.5 g/dl (3.4-5.0); BLOOD UREA NITROGEN 17.5 mg/dL (7-18)
[2021-06-04 11:58] LABS: CREATININE 1.1 mg/dL (0.55-1.3)
[2021-06-04 11:59] LABS: BILIRUBIN,TOTAL 0.6 mg/dL (0.2-1); TOT PROT 7.4 g/dl (6.4-8.2)
[2021-06-04] MEDS ORDERED: INSULIN (NOVOLOG) ASPART 100 UNITS/ML 10ML VIAL ONE ×2 (17:58→20:44)
[2021-06-04] MEDS: HYDROmorphone HCL 2 MG TABLET PO PRN (19:31)
[2021-06-04] MEDS: LEVALBUTEROL HCL 0.63 MG/3 ML VIAL.NEB. IH PRN (22:21)
[2021-06-05] MEDS: methylPREDNISolone NA SUCC 40 MG/1 ML VIAL IVPUSH SCH ×4 (01:16→18:45)
[2021-06-05] MEDS: INSULIN SLIDING SCALE (NOVOLOG) 1 VIAL SQ SCH ×4 (01:33→18:31)
[2021-06-05] MEDS: SODIUM CHLORIDE FOR INHALATION 3 ML VIAL.NEB IH PRN (01:45)
[2021-06-05] MEDS: diphenhydrAMINE HCL 25 MG CAPSULE (FP) PO PRN ×2 (04:05→22:03)
[2021-06-05] MEDS: INSULIN (LEVEMIR) 100 UNITS/ML UNITS SQ SCH ×3 (06:00→21:33)
[2021-06-05] MEDS: LEVALBUTEROL HCL 0.63 MG/3 ML VIAL.NEB. IH PRN (07:37)
[2021-06-05] MEDS ORDERED: INSULIN (LEVEMIR) 100 UNITS/ML UNITS SQ SCH ×2 (08:45→13:15)
[2021-06-05] MEDS: PANTOPRAZOLE 40 MG TABLET PO SCH (09:14)
[2021-06-05] MEDS: ENOXAPARIN NA (PORCINE) 40 MG/0.4 ML DISP.SYRIN SQ SCH (09:15)
[2021-06-05] MEDS: DOXYCYCLINE HYCLATE 100 MG CAPSULE PO SCH ×2 (09:15→18:45)
[2021-06-05] MEDS: guaiFENesin 600 MG TABLET.ER (FP) PO SCH ×2 (09:15→21:25)
[2021-06-05] MEDS: BUDESONIDE/FORMETEROL FUMARATE 160/4.5 mcg INHALER IH SCH ×2 (09:15→21:35)
[2021-06-05 09:31] LABS: HEMATOCRIT 35.8 % (32.4-45.2); HEMOGLOBIN 12.3 GM/dL (10.7-15.3); LYMPH % 11.1 % (8-40); MCH 30.9 pg (25.7-33.7); MCHC 34.4 g/dl (32.0-36.0); MEAN CELL VOLUME 89.7 fl (80-96); MEAN PLT VOLUME 8.9 fl (7.5-11.1); NEUT % 84.9 % (42.8-82.8); PLATELET COUNT 95 10^3/uL (134-434); RBC 3.98 M/mm3 (3.60-5.2); RDW 18.9 % (11.6-15.6); WHITE BLOOD COUNT 6.5 K/mm3 (4.0-10.0)
[2021-06-05] MEDS ORDERED: INSULIN (NOVOLOG) ASPART 100 UNITS/ML 10ML VIAL ONE ×2 (12:10→18:30)
[2021-06-05] MEDS: LEVALBUTEROL HCL 0.63 MG/3 ML VIAL.NEB. IH SCH ×2 (13:34→20:10)
[2021-06-05] MEDS: HYDROmorphone HCL 2 MG TABLET PO PRN (19:01)
[2021-06-06] MEDS: ALPRAZolam 0.25 MG TABLET PO PRN (01:09)
[2021-06-06] MEDS: methylPREDNISolone NA SUCC 40 MG/1 ML VIAL IVPUSH SCH ×3 (01:54→17:45)
[2021-06-06] MEDS ORDERED: INSULIN (NOVOLOG) ASPART 100 UNITS/ML 10ML VIAL ONE ×2 (06:19→12:21)
[2021-06-06] MEDS: INSULIN (LEVEMIR) 100 UNITS/ML UNITS SQ SCH ×2 (06:47→21:23)
[2021-06-06] MEDS: INSULIN SLIDING SCALE (NOVOLOG) 1 VIAL SQ SCH ×4 (06:47→21:40)
[2021-06-06] MEDS: LEVALBUTEROL HCL 0.63 MG/3 ML VIAL.NEB. IH SCH ×3 (06:55→19:47)
[2021-06-06] MEDS: ENOXAPARIN NA (PORCINE) 40 MG/0.4 ML DISP.SYRIN SQ SCH (09:36)
[2021-06-06] MEDS: PANTOPRAZOLE 40 MG TABLET PO SCH (09:36)
[2021-06-06] MEDS: BUDESONIDE/FORMETEROL FUMARATE 160/4.5 mcg INHALER IH SCH ×2 (09:37→21:23)
[2021-06-06] MEDS: guaiFENesin 600 MG TABLET.ER (FP) PO SCH ×2 (09:37→21:23)
[2021-06-06] MEDS: DOXYCYCLINE HYCLATE 100 MG CAPSULE PO SCH ×2 (09:37→17:46)
[2021-06-06] MEDS: fentaNYL 12mcg/hr PATCH.TD72 TD SCH (12:27)
[2021-06-06] MEDS: FENTANYL PATCH WASTE MC PRN (12:34)
[2021-06-06] MEDS ORDERED: INSULIN SLIDING SCALE (NOVOLOG) 1 VIAL SQ SCH ×3 (16:30→19:30)
[2021-06-06] MEDS: HYDROmorphone HCL 2 MG TABLET PO PRN ×2 (16:57→23:05)
[2021-06-07] MEDS: methylPREDNISolone NA SUCC 40 MG/1 ML VIAL IVPUSH SCH ×4 (02:34→21:24)
[2021-06-07] MEDS: INSULIN SLIDING SCALE (NOVOLOG) 1 VIAL SQ SCH ×6 (05:57→21:26)
[2021-06-07] MEDS: INSULIN (LEVEMIR) 100 UNITS/ML UNITS SQ SCH ×2 (06:01→21:27)
[2021-06-07] MEDS ORDERED: INSULIN (NOVOLOG) ASPART 100 UNITS/ML 10ML VIAL ONE ×2 (06:37→09:36)
[2021-06-07] MEDS ORDERED: INSULIN (LEVEMIR) 100 UNITS/ML UNITS SQ SCH (07:41)
[2021-06-07 08:00] LABS: BASO % 0.3 % (0-2.0); HEMATOCRIT 35.1 % (32.4-45.2); HEMOGLOBIN 12.3 GM/dL (10.7-15.3); LYMPH % 15.4 % (8-40); MCH 30.7 pg (25.7-33.7); MEAN CELL VOLUME 87.7 fl (80-96); MEAN PLT VOLUME 8.3 fl (7.5-11.1); MONO % 4.5 % (3.8-10.2); NEUT % 79.8 % (42.8-82.8); PLATELET COUNT 88 10^3/uL (134-434); RBC 4.01 M/mm3 (3.60-5.2); RDW 18.5 % (11.6-15.6); WHITE BLOOD COUNT 7.3 K/mm3 (4.0-10.0)
[2021-06-07] MEDS: LEVALBUTEROL HCL 0.63 MG/3 ML VIAL.NEB. IH SCH ×3 (08:28→19:57)
[2021-06-07 08:30] LABS: CALCIUM 9.2 mg/dL (8.5-10.1)
[2021-06-07 08:33] LABS: CREATININE 0.9 mg/dL (0.55-1.3)
[2021-06-07] MEDS: DOXYCYCLINE HYCLATE 100 MG CAPSULE PO SCH ×2 (10:51→17:51)
[2021-06-07] MEDS: guaiFENesin 600 MG TABLET.ER (FP) PO SCH ×2 (10:51→21:29)
[2021-06-07] MEDS: ENOXAPARIN NA (PORCINE) 40 MG/0.4 ML DISP.SYRIN SQ SCH (10:51)
[2021-06-07] MEDS: PANTOPRAZOLE 40 MG TABLET PO SCH (10:51)
[2021-06-07] MEDS: BUDESONIDE/FORMETEROL FUMARATE 160/4.5 mcg INHALER IH SCH ×2 (10:52→21:29)
[2021-06-07] MEDS ORDERED: PT OWN MED DRAWER 7, Y5N ONE (15:38)
[2021-06-07] MEDS: TIOTROPIUM BROMIDE 2.5 MCG (SPIRIVA) RESPIMAT INHALER IH SCH (15:40)
[2021-06-07] MEDS: HYDROmorphone HCL 2 MG TABLET PO PRN (18:53)
[2021-06-07] MEDS: ALPRAZolam 0.25 MG TABLET PO PRN (21:31)
[2021-06-08] MEDS: INSULIN SLIDING SCALE (NOVOLOG) 1 VIAL SQ SCH ×7 (01:05→21:15)
[2021-06-08] MEDS: HYDROmorphone HCL 2 MG TABLET PO PRN ×2 (01:06→19:24)
[2021-06-08] MEDS: diphenhydrAMINE HCL 25 MG CAPSULE (FP) PO PRN (02:13)
[2021-06-08] MEDS: methylPREDNISolone NA SUCC 40 MG/1 ML VIAL IVPUSH SCH ×4 (02:14→21:11)
[2021-06-08] MEDS: INSULIN (LEVEMIR) 100 UNITS/ML UNITS SQ SCH ×3 (06:00→21:13)
[2021-06-08] MEDS: LEVALBUTEROL HCL 0.63 MG/3 ML VIAL.NEB. IH SCH ×3 (07:32→20:00)
[2021-06-08 07:43] LABS: HEMATOCRIT 36.5 % (32.4-45.2); HEMOGLOBIN 12.4 GM/dL (10.7-15.3); MCH 30.2 pg (25.7-33.7); MCHC 33.9 g/dl (32.0-36.0); MEAN CELL VOLUME 89.1 fl (80-96); PLATELET COUNT 81 10^3/uL (134-434); RDW 18.5 % (11.6-15.6); WHITE BLOOD COUNT 6.5 K/mm3 (4.0-10.0)
[2021-06-08] MEDS ORDERED: PT OWN MED DRAWER 7, Y5N ONE (09:04)
[2021-06-08] MEDS ORDERED: INSULIN (NOVOLOG) ASPART 100 UNITS/ML 10ML VIAL ONE (09:06)
[2021-06-08 09:32] LABS: ANISOCYTOSIS 0; MACROCYTOSIS 0; PLATELET ESTIMATE DECREASED
[2021-06-08] MEDS: ENOXAPARIN NA (PORCINE) 40 MG/0.4 ML DISP.SYRIN SQ SCH (09:32)
[2021-06-08] MEDS: DOXYCYCLINE HYCLATE 100 MG CAPSULE PO SCH (09:32)
[2021-06-08] MEDS: guaiFENesin 600 MG TABLET.ER (FP) PO SCH ×2 (09:32→21:11)
[2021-06-08] MEDS: PANTOPRAZOLE 40 MG TABLET PO SCH (09:32)
[2021-06-08] MEDS: BUDESONIDE/FORMETEROL FUMARATE 160/4.5 mcg INHALER IH SCH ×2 (09:39→21:17)
[2021-06-08] MEDS: TIOTROPIUM BROMIDE 2.5 MCG (SPIRIVA) RESPIMAT INHALER IH SCH (09:40)
[2021-06-08] MEDS: ALPRAZolam 0.25 MG TABLET PO PRN (21:11)
[2021-06-09] MEDS: diphenhydrAMINE HCL 25 MG CAPSULE (FP) PO PRN (02:01)
[2021-06-09] MEDS: methylPREDNISolone NA SUCC 40 MG/1 ML VIAL IVPUSH SCH ×4 (02:01→21:14)
[2021-06-09] MEDS: INSULIN SLIDING SCALE (NOVOLOG) 1 VIAL SQ SCH ×6 (02:08→21:14)
[2021-06-09] MEDS: INSULIN (LEVEMIR) 100 UNITS/ML UNITS SQ SCH ×2 (06:03→21:14)
[2021-06-09] MEDS: LEVALBUTEROL HCL 0.63 MG/3 ML VIAL.NEB. IH SCH ×3 (07:32→20:07)
[2021-06-09 08:39] LABS: HEMATOCRIT 35.9 % (32.4-45.2); HEMOGLOBIN 12.4 GM/dL (10.7-15.3); MCH 30.2 pg (25.7-33.7); MCHC 34.6 g/dl (32.0-36.0); MEAN CELL VOLUME 87.3 fl (80-96); MEAN PLT VOLUME 7.6 fl (7.5-11.1); PLATELET COUNT 80 10^3/uL (134-434); RBC 4.11 M/mm3 (3.60-5.2); RDW 18.7 % (11.6-15.6)
[2021-06-09] MEDS: guaiFENesin 600 MG TABLET.ER (FP) PO SCH ×2 (09:08→21:14)
[2021-06-09] MEDS: ENOXAPARIN NA (PORCINE) 40 MG/0.4 ML DISP.SYRIN SQ SCH (09:08)
[2021-06-09] MEDS: PANTOPRAZOLE 40 MG TABLET PO SCH (09:08)
[2021-06-09] MEDS: BUDESONIDE/FORMETEROL FUMARATE 160/4.5 mcg INHALER IH SCH ×2 (09:09→21:15)
[2021-06-09] MEDS: TIOTROPIUM BROMIDE 2.5 MCG (SPIRIVA) RESPIMAT INHALER IH SCH (09:09)
[2021-06-09 09:42] LABS: ANISOCYTOSIS 0; HELMET CELLS 0; HOWELL-JOLLY BODIES 0; MACROCYTOSIS 0; OVALOCYTE 0; PLATELET ESTIMATE DECREASED; ROULEAU 0; SICKELED CELLS 0; TARGET CELLS 0; TEAR DROP CELLS 0; TOXIC GRANULATION 0
[2021-06-09] MEDS ORDERED: INSULIN (NOVOLOG) ASPART 100 UNITS/ML 10ML VIAL ONE (11:45)
[2021-06-09] MEDS: fentaNYL 12mcg/hr PATCH.TD72 TD SCH (11:50)
[2021-06-09] MEDS: FENTANYL PATCH WASTE MC PRN (12:07)
[2021-06-09] MEDS: HYDROmorphone HCL 2 MG TABLET PO PRN (18:21)
[2021-06-09] MEDS: ALPRAZolam 0.25 MG TABLET PO PRN (21:13)
[2021-06-10] MEDS: diphenhydrAMINE HCL 25 MG CAPSULE (FP) PO PRN (00:09)
[2021-06-10] MEDS: INSULIN SLIDING SCALE (NOVOLOG) 1 VIAL SQ SCH ×6 (01:58→21:11)
[2021-06-10] MEDS: methylPREDNISolone NA SUCC 40 MG/1 ML VIAL IVPUSH SCH ×4 (01:59→22:17)
[2021-06-10] MEDS: INSULIN (LEVEMIR) 100 UNITS/ML UNITS SQ SCH ×2 (06:10→21:12)
[2021-06-10] MEDS: TIOTROPIUM BROMIDE 2.5 MCG (SPIRIVA) RESPIMAT INHALER IH SCH (09:00)
[2021-06-10] MEDS: ENOXAPARIN NA (PORCINE) 40 MG/0.4 ML DISP.SYRIN SQ SCH (09:00)
[2021-06-10] MEDS: PANTOPRAZOLE 40 MG TABLET PO SCH (09:00)
[2021-06-10] MEDS: guaiFENesin 600 MG TABLET.ER (FP) PO SCH ×2 (09:00→21:13)
[2021-06-10] MEDS: BUDESONIDE/FORMETEROL FUMARATE 160/4.5 mcg INHALER IH SCH ×2 (09:01→21:17)
[2021-06-10] MEDS: LEVALBUTEROL HCL 0.63 MG/3 ML VIAL.NEB. IH SCH ×2 (09:28→21:01)
[2021-06-10] MEDS ORDERED: INSULIN (NOVOLOG) ASPART 100 UNITS/ML 10ML VIAL ONE (10:44)
[2021-06-10 12:30] LABS: HEMOGLOBIN 12.3 GM/dL (10.7-15.3); MCH 30.9 pg (25.7-33.7); MCHC 34.1 g/dl (32.0-36.0); MEAN CELL VOLUME 90.7 fl (80-96); MEAN PLT VOLUME 8.2 fl (7.5-11.1); PLATELET COUNT 81 10^3/uL (134-434); RBC 3.97 M/mm3 (3.60-5.2); RDW 18.7 % (11.6-15.6); WHITE BLOOD COUNT 5.7 K/mm3 (4.0-10.0)
[2021-06-10 13:12] LABS: ANISOCYTOSIS 1+; MACROCYTOSIS 0; PLATELET ESTIMATE DECREASED
[2021-06-10] MEDS: HYDROmorphone HCL 2 MG TABLET PO PRN (20:11)
[2021-06-10] MEDS: ALPRAZolam 0.25 MG TABLET PO PRN (21:16)
[2021-06-11] MEDS: diphenhydrAMINE HCL 25 MG CAPSULE (FP) PO PRN ×2 (01:20→21:53)
[2021-06-11] MEDS: INSULIN SLIDING SCALE (NOVOLOG) 1 VIAL SQ SCH ×6 (01:25→21:57)
[2021-06-11] MEDS: methylPREDNISolone NA SUCC 40 MG/1 ML VIAL IVPUSH SCH ×3 (02:14→17:35)
[2021-06-11] MEDS: INSULIN (LEVEMIR) 100 UNITS/ML UNITS SQ SCH ×2 (06:30→21:58)
[2021-06-11] MEDS ORDERED: INSULIN (NOVOLOG) ASPART 100 UNITS/ML 10ML VIAL ONE ×3 (06:38→21:16)
[2021-06-11] MEDS: LEVALBUTEROL HCL 0.63 MG/3 ML VIAL.NEB. IH SCH ×3 (07:45→20:06)
[2021-06-11 09:25] LABS: HEMATOCRIT 35.6 % (32.4-45.2); HEMOGLOBIN 12.1 GM/dL (10.7-15.3); MCH 30.5 pg (25.7-33.7); MCHC 33.9 g/dl (32.0-36.0); MEAN CELL VOLUME 90.1 fl (80-96); MEAN PLT VOLUME 7.8 fl (7.5-11.1); PLATELET COUNT 67 10^3/uL (134-434); RBC 3.95 M/mm3 (3.60-5.2); RDW 18.7 % (11.6-15.6)
[2021-06-11] MEDS: ENOXAPARIN NA (PORCINE) 40 MG/0.4 ML DISP.SYRIN SQ SCH (09:41)
[2021-06-11] MEDS: guaiFENesin 600 MG TABLET.ER (FP) PO SCH ×2 (09:41→21:53)
[2021-06-11] MEDS: PANTOPRAZOLE 40 MG TABLET PO SCH (09:42)
[2021-06-11] MEDS: TIOTROPIUM BROMIDE 2.5 MCG (SPIRIVA) RESPIMAT INHALER IH SCH (09:42)
[2021-06-11] MEDS: BUDESONIDE/FORMETEROL FUMARATE 160/4.5 mcg INHALER IH SCH ×2 (09:43→21:55)
[2021-06-11 11:16] LABS: ANISOCYTOSIS 0; MACROCYTOSIS 0; PLATELET ESTIMATE DECREASED
[2021-06-11] MEDS: HYDROmorphone HCL 2 MG TABLET PO PRN (19:05)
[2021-06-11] MEDS: ALPRAZolam 0.25 MG TABLET PO PRN (21:52)
[2021-06-12] MEDS: methylPREDNISolone NA SUCC 40 MG/1 ML VIAL IVPUSH SCH ×3 (01:47→17:55)
[2021-06-12] MEDS: INSULIN SLIDING SCALE (NOVOLOG) 1 VIAL SQ SCH ×6 (01:55→21:45)
[2021-06-12] MEDS: SODIUM CHLORIDE FOR INHALATION 3 ML VIAL.NEB IH PRN (02:16)
[2021-06-12] MEDS: INSULIN (LEVEMIR) 100 UNITS/ML UNITS SQ SCH ×2 (06:14→21:44)
[2021-06-12] MEDS: LEVALBUTEROL HCL 0.63 MG/3 ML VIAL.NEB. IH SCH ×3 (07:32→20:55)
[2021-06-12 08:42] LABS: HEMATOCRIT 36.3 % (32.4-45.2); HEMOGLOBIN 12.4 GM/dL (10.7-15.3); MCH 30.6 pg (25.7-33.7); MEAN CELL VOLUME 89.8 fl (80-96); MEAN PLT VOLUME 7.5 fl (7.5-11.1); PLATELET COUNT 58 10^3/uL (134-434); RBC 4.04 M/mm3 (3.60-5.2); RDW 18.6 % (11.6-15.6)
[2021-06-12] MEDS ORDERED: BENZOCAINE/MENTH/CETYLPYRD CL 1 EACH LOZENGE MM PRN (09:10)
[2021-06-12] MEDS ORDERED: PT OWN MED DRAWER 7, Y5N ONE (09:59)
[2021-06-12] MEDS: ENOXAPARIN NA (PORCINE) 40 MG/0.4 ML DISP.SYRIN SQ SCH (10:36)
[2021-06-12] MEDS: guaiFENesin 600 MG TABLET.ER (FP) PO SCH ×2 (10:37→21:41)
[2021-06-12] MEDS: PANTOPRAZOLE 40 MG TABLET PO SCH (10:37)
[2021-06-12] MEDS: BUDESONIDE/FORMETEROL FUMARATE 160/4.5 mcg INHALER IH SCH ×2 (10:38→21:44)
[2021-06-12] MEDS: TIOTROPIUM BROMIDE 2.5 MCG (SPIRIVA) RESPIMAT INHALER IH SCH (10:38)
[2021-06-12 11:35] LABS: ANISOCYTOSIS 1+; MACROCYTOSIS 0; OVALOCYTE 1+; PLATELET ESTIMATE DECREASED; TEAR DROP CELLS 1+
[2021-06-12] MEDS: HYDROmorphone HCL 2 MG TABLET PO PRN ×2 (15:11→21:40)
[2021-06-12] MEDS: fentaNYL 12mcg/hr PATCH.TD72 TD SCH (17:55)
[2021-06-12] MEDS: FENTANYL PATCH WASTE TD PRN (17:58)
[2021-06-13] MEDS: diphenhydrAMINE HCL 25 MG CAPSULE (FP) PO PRN ×2 (00:53→23:14)
[2021-06-13] MEDS: methylPREDNISolone NA SUCC 40 MG/1 ML VIAL IVPUSH SCH ×3 (02:18→17:55)
[2021-06-13] MEDS: INSULIN SLIDING SCALE (NOVOLOG) 1 VIAL SQ SCH ×6 (02:22→21:22)
[2021-06-13] MEDS: INSULIN (LEVEMIR) 100 UNITS/ML UNITS SQ SCH ×2 (06:10→21:22)
[2021-06-13] MEDS ORDERED: INSULIN (NOVOLOG) ASPART 100 UNITS/ML 10ML VIAL ONE ×3 (07:10→21:07)
[2021-06-13] MEDS: LEVALBUTEROL HCL 0.63 MG/3 ML VIAL.NEB. IH SCH ×3 (09:08→20:10)
[2021-06-13 09:32] LABS: HEMATOCRIT 35.6 % (32.4-45.2); HEMOGLOBIN 12.1 GM/dL (10.7-15.3); MCH 30.6 pg (25.7-33.7); MEAN CELL VOLUME 90.1 fl (80-96); MEAN PLT VOLUME 7.9 fl (7.5-11.1); PLATELET COUNT 68 10^3/uL (134-434); RBC 3.95 M/mm3 (3.60-5.2); RDW 19.3 % (11.6-15.6); WHITE BLOOD COUNT 7.3 K/mm3 (4.0-10.0)
[2021-06-13] MEDS ORDERED: PT OWN MED DRAWER 7, Y5N ONE (09:55)
[2021-06-13] MEDS: guaiFENesin 600 MG TABLET.ER (FP) PO SCH ×2 (10:22→21:20)
[2021-06-13] MEDS: ENOXAPARIN NA (PORCINE) 40 MG/0.4 ML DISP.SYRIN SQ SCH (10:22)
[2021-06-13] MEDS: PANTOPRAZOLE 40 MG TABLET PO SCH (10:22)
[2021-06-13] MEDS: BUDESONIDE/FORMETEROL FUMARATE 160/4.5 mcg INHALER IH SCH ×2 (10:23→21:21)
[2021-06-13] MEDS: TIOTROPIUM BROMIDE 2.5 MCG (SPIRIVA) RESPIMAT INHALER IH SCH (10:23)
[2021-06-13 11:59] LABS: ANISOCYTOSIS 1+; MACROCYTOSIS 0; OVALOCYTE 1+; PLATELET ESTIMATE DECREASED
[2021-06-13] MEDS: HYDROmorphone HCL 2 MG TABLET PO PRN (17:55)
[2021-06-13] MEDS: ALPRAZolam 0.25 MG TABLET PO PRN (21:27)
[2021-06-13] MEDS: SODIUM CHLORIDE FOR INHALATION 3 ML VIAL.NEB IH PRN (23:22)
[2021-06-14] MEDS: methylPREDNISolone NA SUCC 40 MG/1 ML VIAL IVPUSH SCH ×3 (01:49→18:46)
[2021-06-14] MEDS: INSULIN SLIDING SCALE (NOVOLOG) 1 VIAL SQ SCH ×5 (01:54→23:04)
[2021-06-14] MEDS: INSULIN (LEVEMIR) 100 UNITS/ML UNITS SQ SCH ×2 (06:11→21:25)
[2021-06-14 07:20] LABS: BASO % 0.5 % (0-2.0); HEMATOCRIT 34.6 % (32.4-45.2); HEMOGLOBIN 11.8 GM/dL (10.7-15.3); MCH 30.4 pg (25.7-33.7); MEAN CELL VOLUME 89.3 fl (80-96); MEAN PLT VOLUME 7.7 fl (7.5-11.1); MONO % 3.8 % (3.8-10.2); NEUT % 83.7 % (42.8-82.8); PLATELET COUNT 50 10^3/uL (134-434); RBC 3.88 M/mm3 (3.60-5.2); WHITE BLOOD COUNT 5.8 K/mm3 (4.0-10.0)
[2021-06-14] MEDS: LEVALBUTEROL HCL 0.63 MG/3 ML VIAL.NEB. IH SCH ×3 (08:00→20:33)
[2021-06-14] MEDS: guaiFENesin 600 MG TABLET.ER (FP) PO SCH ×2 (10:15→21:24)
[2021-06-14] MEDS: PANTOPRAZOLE 40 MG TABLET PO SCH (10:15)
[2021-06-14] MEDS: BUDESONIDE/FORMETEROL FUMARATE 160/4.5 mcg INHALER IH SCH ×2 (10:16→21:25)
[2021-06-14] MEDS: TIOTROPIUM BROMIDE 2.5 MCG (SPIRIVA) RESPIMAT INHALER IH SCH (10:16)
[2021-06-14 11:34] LABS: ANISOCYTOSIS 1+; MACROCYTOSIS 0; PLATELET ESTIMATE DECREASED
[2021-06-14] MEDS ORDERED: INSULIN SLIDING SCALE (NOVOLOG) 1 VIAL SQ SCH (13:30)
[2021-06-14] MEDS: HYDROmorphone HCL 2 MG TABLET PO PRN (18:45)
[2021-06-14] MEDS: ALPRAZolam 0.25 MG TABLET PO PRN (21:25)
[2021-06-15] MEDS: diphenhydrAMINE HCL 25 MG CAPSULE (FP) PO PRN ×2 (00:47→23:17)
[2021-06-15] MEDS: HYDROmorphone HCL 2 MG TABLET PO PRN ×2 (01:07→20:20)
[2021-06-15] MEDS: methylPREDNISolone NA SUCC 40 MG/1 ML VIAL IVPUSH SCH ×3 (01:41→21:37)
[2021-06-15] MEDS: INSULIN (LEVEMIR) 100 UNITS/ML UNITS SQ SCH ×2 (06:09→21:37)
[2021-06-15] MEDS: INSULIN SLIDING SCALE (NOVOLOG) 1 VIAL SQ SCH ×4 (06:12→23:16)
[2021-06-15] MEDS: LEVALBUTEROL HCL 0.63 MG/3 ML VIAL.NEB. IH SCH ×2 (07:35→13:41)
[2021-06-15] MEDS ORDERED: PT OWN MED DRAWER 7, Y5N ONE (08:45)
[2021-06-15 09:10] LABS: HEMATOCRIT 39.2 % (32.4-45.2); HEMOGLOBIN 13.1 GM/dL (10.7-15.3); MCH 30.5 pg (25.7-33.7); MCHC 33.5 g/dl (32.0-36.0); PLATELET COUNT 73 10^3/uL (134-434); RBC 4.31 M/mm3 (3.60-5.2); RDW 19.1 % (11.6-15.6); WHITE BLOOD COUNT 12.6 K/mm3 (4.0-10.0)
[2021-06-15] MEDS: guaiFENesin 600 MG TABLET.ER (FP) PO SCH ×2 (09:19→21:37)
[2021-06-15] MEDS: PANTOPRAZOLE 40 MG TABLET PO SCH (09:19)
[2021-06-15] MEDS: BUDESONIDE/FORMETEROL FUMARATE 160/4.5 mcg INHALER IH SCH ×2 (09:20→21:41)
[2021-06-15 09:40] LABS: BLOOD UREA NITROGEN 21.7 mg/dL (7-18); CALCIUM 8.9 mg/dL (8.5-10.1)
[2021-06-15 09:44] LABS: CREATININE 0.8 mg/dL (0.55-1.3)
[2021-06-15] MEDS: TIOTROPIUM BROMIDE 2.5 MCG (SPIRIVA) RESPIMAT INHALER IH SCH (11:10)
[2021-06-15 12:02] LABS: ANISOCYTOSIS 1+; MACROCYTOSIS 0; OVALOCYTE 1+; PLATELET ESTIMATE DECREASED
[2021-06-15] MEDS: fentaNYL 12mcg/hr PATCH.TD72 TD SCH (17:27)
[2021-06-15] MEDS: FENTANYL PATCH WASTE TD PRN (17:34)
[2021-06-16] MEDS: INSULIN SLIDING SCALE (NOVOLOG) 1 VIAL SQ SCH ×4 (05:10→23:28)
[2021-06-16] MEDS: INSULIN (LEVEMIR) 100 UNITS/ML UNITS SQ SCH ×2 (06:24→21:57)
[2021-06-16 09:25] LABS: HEMATOCRIT 37.2 % (32.4-45.2); HEMOGLOBIN 12.8 GM/dL (10.7-15.3); MCH 30.3 pg (25.7-33.7); MCHC 34.3 g/dl (32.0-36.0); MEAN CELL VOLUME 88.2 fl (80-96); MEAN PLT VOLUME 7.1 fl (7.5-11.1); PLATELET COUNT 73 10^3/uL (134-434); RBC 4.22 M/mm3 (3.60-5.2); RDW 18.9 % (11.6-15.6); WHITE BLOOD COUNT 9.4 K/mm3 (4.0-10.0)
[2021-06-16] MEDS: guaiFENesin 600 MG TABLET.ER (FP) PO SCH ×2 (10:22→21:59)
[2021-06-16] MEDS: PANTOPRAZOLE 40 MG TABLET PO SCH (10:22)
[2021-06-16] MEDS: methylPREDNISolone NA SUCC 40 MG/1 ML VIAL IVPUSH SCH (10:22)
[2021-06-16] MEDS: BUDESONIDE/FORMETEROL FUMARATE 160/4.5 mcg INHALER IH SCH ×2 (10:24→22:00)
[2021-06-16] MEDS: TIOTROPIUM BROMIDE 2.5 MCG (SPIRIVA) RESPIMAT INHALER IH SCH (10:24)
[2021-06-16 10:42] LABS: ANISOCYTOSIS 1+; MACROCYTOSIS 0; PLATELET ESTIMATE DECREASED
[2021-06-16] MEDS ORDERED: ALBUTEROL SO4 2.5/IPRATROPIUM 0.5 INH SOL 3 ML VIAL.NEB. NEB PRN (17:38)
[2021-06-16] MEDS: HYDROmorphone HCL 2 MG TABLET PO PRN (18:45)
[2021-06-16] MEDS: diphenhydrAMINE HCL 25 MG CAPSULE (FP) PO PRN (22:01)
[2021-06-17] MEDS: HYDROmorphone HCL 2 MG TABLET PO PRN ×2 (05:02→18:11)
[2021-06-17] MEDS: INSULIN SLIDING SCALE (NOVOLOG) 1 VIAL SQ SCH ×4 (05:09→23:12)
[2021-06-17] MEDS ORDERED: morphine SULFATE 4 MG/ML VIAL IVPUSH ONE (06:15)
[2021-06-17] MEDS: INSULIN (LEVEMIR) 100 UNITS/ML UNITS SQ SCH ×2 (06:32→22:04)
[2021-06-17] MEDS ORDERED: INSULIN (LEVEMIR) 100 UNITS/ML UNITS SQ SCH ×2 (07:29→22:00)
[2021-06-17] MEDS: morphine SULFATE 4 MG/ML VIAL IVPUSH PRN ×2 (08:55→21:59)
[2021-06-17] MEDS: guaiFENesin 600 MG TABLET.ER (FP) PO SCH ×2 (09:00→21:59)
[2021-06-17] MEDS: PANTOPRAZOLE 40 MG TABLET PO SCH (09:00)
[2021-06-17] MEDS: TIOTROPIUM BROMIDE 2.5 MCG (SPIRIVA) RESPIMAT INHALER IH SCH (09:01)
[2021-06-17] MEDS: BUDESONIDE/FORMETEROL FUMARATE 160/4.5 mcg INHALER IH SCH ×2 (09:01→22:06)
[2021-06-17] MEDS ORDERED: predniSONE 20 MG TABLET (UD) PO SCH (10:00)
[2021-06-17 10:01] LABS: HEMATOCRIT 39.1 % (32.4-45.2); MCH 30.2 pg (25.7-33.7); MCHC 33.3 g/dl (32.0-36.0); MEAN CELL VOLUME 90.7 fl (80-96); MEAN PLT VOLUME 7.9 fl (7.5-11.1); PLATELET COUNT 121 10^3/uL (134-434); RBC 4.31 M/mm3 (3.60-5.2); RDW 18.9 % (11.6-15.6); WHITE BLOOD COUNT 14.8 K/mm3 (4.0-10.0)
[2021-06-17 11:32] LABS: ANISOCYTOSIS 0; HELMET CELLS 0; HOWELL-JOLLY BODIES 0; MACROCYTOSIS 0; OVALOCYTE 0; PLATELET ESTIMATE DECREASED; ROULEAU 0; SICKELED CELLS 0; TARGET CELLS 0; TEAR DROP CELLS 0; TOXIC GRANULATION 0
[2021-06-17] MEDS ORDERED: predniSONE 10 MG TABLET (UD) PO SCH (14:36)
[2021-06-17] MEDS ORDERED: ALBUTEROL SO4 HFA INHALER IH PRN (14:37)
[2021-06-17] MEDS ORDERED: INSULIN (NOVOLOG) ASPART 100 UNITS/ML 10ML VIAL ONE (17:25)
[2021-06-17] MEDS: diphenhydrAMINE HCL 25 MG CAPSULE (FP) PO PRN (23:16)
[2021-06-18] MEDS: morphine SULFATE 4 MG/ML VIAL IVPUSH PRN (03:49)
[2021-06-18] MEDS: HYDROmorphone HCL 2 MG TABLET PO PRN ×2 (04:51→18:30)
[2021-06-18] MEDS: INSULIN (LEVEMIR) 100 UNITS/ML UNITS SQ SCH (06:04)
[2021-06-18] MEDS: INSULIN SLIDING SCALE (NOVOLOG) 1 VIAL SQ SCH ×4 (06:06→21:21)
[2021-06-18 09:00] LABS: HEMATOCRIT 36.6 % (32.4-45.2); HEMOGLOBIN 12.4 GM/dL (10.7-15.3); MCH 30.6 pg (25.7-33.7); MEAN PLT VOLUME 7.6 fl (7.5-11.1); PLATELET COUNT 63 10^3/uL (134-434); RBC 4.07 M/mm3 (3.60-5.2); RDW 19.1 % (11.6-15.6); WHITE BLOOD COUNT 9.5 K/mm3 (4.0-10.0)
[2021-06-18] MEDS ORDERED: INSULIN (LEVEMIR) 100 UNITS/ML UNITS SQ SCH (09:38)
[2021-06-18] MEDS ORDERED: INSULIN SLIDING SCALE (NOVOLOG) 1 VIAL SQ SCH (09:40)
[2021-06-18] MEDS ORDERED: PT OWN MED DRAWER 7, Y5N ONE (09:40)
[2021-06-18] MEDS: PANTOPRAZOLE 40 MG TABLET PO SCH (09:42)
[2021-06-18] MEDS: guaiFENesin 600 MG TABLET.ER (FP) PO SCH ×2 (09:42→21:20)
[2021-06-18] MEDS: TIOTROPIUM BROMIDE 2.5 MCG (SPIRIVA) RESPIMAT INHALER IH SCH (09:43)
[2021-06-18] MEDS: BUDESONIDE/FORMETEROL FUMARATE 160/4.5 mcg INHALER IH SCH ×2 (09:43→21:23)
[2021-06-18 10:32] LABS: ERYTHROCYTE SEDIMENTATION RATE 8 mm/hr (0-30)
[2021-06-18 10:54] LABS: ANISOCYTOSIS 0; HELMET CELLS 0; HOWELL-JOLLY BODIES 0; MACROCYTOSIS 0; OVALOCYTE 0; PLATELET ESTIMATE DECREASED; ROULEAU 0; SICKELED CELLS 0; TARGET CELLS 0; TEAR DROP CELLS 0; TOXIC GRANULATION 0
[2021-06-18] MEDS: fentaNYL 12mcg/hr PATCH.TD72 TD SCH (17:46)
[2021-06-18] MEDS: FENTANYL PATCH WASTE TD PRN (18:26)
[2021-06-18] MEDS: diphenhydrAMINE HCL 25 MG CAPSULE (FP) PO PRN (22:58)
[2021-06-19] MEDS: HYDROmorphone HCL 2 MG TABLET PO PRN ×2 (04:39→21:03)
[2021-06-19] MEDS: morphine SULFATE 4 MG/ML VIAL IVPUSH PRN (06:13)
[2021-06-19] MEDS: INSULIN SLIDING SCALE (NOVOLOG) 1 VIAL SQ SCH ×4 (06:19→21:11)
[2021-06-19 08:42] LABS: BASO % 0.2 % (0-2.0); EOS % 0.4 % (0-4.5); HEMATOCRIT 37.1 % (32.4-45.2); HEMOGLOBIN 12.6 GM/dL (10.7-15.3); LYMPH % 24.6 % (8-40); MCH 30.8 pg (25.7-33.7); MCHC 33.9 g/dl (32.0-36.0); MEAN CELL VOLUME 90.8 fl (80-96); MEAN PLT VOLUME 7.8 fl (7.5-11.1); MONO % 5.8 % (3.8-10.2); PLATELET COUNT 85 10^3/uL (134-434); RBC 4.09 M/mm3 (3.60-5.2); RDW 19.4 % (11.6-15.6); WHITE BLOOD COUNT 9.4 K/mm3 (4.0-10.0)
[2021-06-19] MEDS ORDERED: LEVALBUTEROL HCL 0.63 MG/3 ML VIAL.NEB. IH PRN (09:12)
[2021-06-19] MEDS: guaiFENesin 600 MG TABLET.ER (FP) PO SCH ×2 (09:32→21:03)
[2021-06-19] MEDS: predniSONE 20 MG TABLET (UD) PO SCH (09:32)
[2021-06-19] MEDS: TIOTROPIUM BROMIDE 2.5 MCG (SPIRIVA) RESPIMAT INHALER IH SCH (09:32)
[2021-06-19] MEDS: PANTOPRAZOLE 40 MG TABLET PO SCH (09:32)
[2021-06-19] MEDS: BUDESONIDE/FORMETEROL FUMARATE 160/4.5 mcg INHALER IH SCH ×2 (09:33→21:12)
[2021-06-20] MEDS: INSULIN SLIDING SCALE (NOVOLOG) 1 VIAL SQ SCH ×4 (06:07→21:29)
[2021-06-20] MEDS: GABAPENTIN 300 MG CAPSULE PO SCH (09:20)
[2021-06-20] MEDS: guaiFENesin 600 MG TABLET.ER (FP) PO SCH ×2 (09:20→21:29)
[2021-06-20] MEDS: predniSONE 20 MG TABLET (UD) PO SCH (09:20)
[2021-06-20] MEDS: PANTOPRAZOLE 40 MG TABLET PO SCH (09:20)
[2021-06-20] MEDS: BUDESONIDE/FORMETEROL FUMARATE 160/4.5 mcg INHALER IH SCH ×2 (09:21→21:29)
[2021-06-20] MEDS: TIOTROPIUM BROMIDE 2.5 MCG (SPIRIVA) RESPIMAT INHALER IH SCH (09:21)
[2021-06-20] MEDS: ALPRAZolam 0.25 MG TABLET PO PRN ×2 (09:52→21:29)
[2021-06-20] MEDS: HYDROmorphone HCL 2 MG TABLET PO PRN (12:24)
[2021-06-20] MEDS: morphine SULFATE 4 MG/ML VIAL IVPUSH PRN (14:16)
[2021-06-20] MEDS: diphenhydrAMINE HCL 25 MG CAPSULE (FP) PO PRN (23:05)
[2021-06-21] MEDS: INSULIN SLIDING SCALE (NOVOLOG) 1 VIAL SQ SCH ×2 (06:13→12:05)
[2021-06-21] MEDS: guaiFENesin 600 MG TABLET.ER (FP) PO SCH (09:29)
[2021-06-21] MEDS: PANTOPRAZOLE 40 MG TABLET PO SCH (09:29)
[2021-06-21] MEDS: GABAPENTIN 300 MG CAPSULE PO SCH (09:29)
[2021-06-21] MEDS: predniSONE 20 MG TABLET (UD) PO SCH (09:29)
[2021-06-21] MEDS: BUDESONIDE/FORMETEROL FUMARATE 160/4.5 mcg INHALER IH SCH (09:29)
[2021-06-21] MEDS: TIOTROPIUM BROMIDE 2.5 MCG (SPIRIVA) RESPIMAT INHALER IH SCH (09:30)
[2021-06-21] MEDS ORDERED: INSULIN (NOVOLOG) ASPART 100 UNITS/ML 10ML VIAL ONE (11:56)
[2021-06-21] MEDS ORDERED: PT OWN MED DRAWER 7, Y5N ONE (13:57)
[2021-06-21] MEDS: FENTANYL PATCH WASTE TD PRN (14:03)
[2021-06-21 15:05] VITALS: BP 118/66; PULSE 48; TEMP 98.1
== END 2021-06-21 15:39 | disposition home or self-care (01) | DRG 864 ==
LOC: JER 16:40 → JERBED 22:37 → J8W 06-02 03:01
PROVIDERS: ADMIT Internal Medicine; ATTEND Internal Medicine
PROC: 0YH Anatomical Regions, Lower Extremities, Insertion (ICD-10-PCS; principal; 2021-06-07)
DX: R50.82 Postprocedural fever (principal); C79.51 Secondary malignant neoplasm of bone; C77.3 Secondary and unspecified malignant neoplasm of axilla and upper limb lymph nodes; C77.1 Secondary and unspecified malignant neoplasm of intrathoracic lymph nodes; E87.2 Acidosis; C56.9 Malignant neoplasm of unspecified ovary; J45.901 Unspecified asthma with (acute) exacerbation; B34.9 Viral infection, unspecified; C50.919 Malignant neoplasm of unspecified site of unspecified female breast; K21.9 Gastro-esophageal reflux disease without esophagitis; R53.1 Weakness; E66.9 Obesity, unspecified; Z68.33 Body mass index [BMI] 33.0-33.9, adult; R94.31 Abnormal electrocardiogram [ECG] [EKG]; R73.9 Hyperglycemia, unspecified; F41.9 Anxiety disorder, unspecified; G47.00 Insomnia, unspecified; D69.59 Other secondary thrombocytopenia; M25.561 Pain in right knee; I10 Essential (primary) hypertension
CPT/HCPCS: 36415; 71045-TC-FY; 71046-TC-FY; 71250-TC; 72148-TC; 76705-TC; 80048; 80053; 81003; 82550; 82962; 83036; 83605; 83735; 84484; 85025; 85379; 85610; 85651; 86140; 87040; 87086; 87633; 87804; 87807; 87899; 93005; 93010; 93970-TC; 94640; 99285-25; C9803; U0003; U0005

== ENCOUNTER 2021-08-09 09:40 | Emergency (ER) | payer OTHER ==
[2021-08-09 10:38] VITALS: BMI 33.6
[2021-08-09] MEDS ORDERED: SODIUM CHLORIDE 2,926 ML IV ONE (11:20)
[2021-08-09] MEDS ORDERED: SODIUM CHLORIDE 1,000 ML IV STA ×2 (11:21→18:13)
[2021-08-09] MEDS ORDERED: IBUPROFEN 400 MG TABLET (FP) PO ONE ×2 (11:22→11:45)
[2021-08-09] MEDS ORDERED: ONDANSETRON 4 MG/2 ML VIAL IVPUSH ONE (11:23)
[2021-08-09] MEDS ORDERED: ONDANSETRON 4 MG/2 ML VIAL ONE (11:45)
[2021-08-09 12:43] LABS: BASO % 0.3 % (0-2.0); EOS % 0.3 % (0-4.5); HEMATOCRIT 35.3 % (32.4-45.2); LYMPH % 8.7 % (8-40); MCH 28.3 pg (25.7-33.7); MCHC 33.9 g/dl (32.0-36.0); MEAN CELL VOLUME 83.3 fl (80-96); MEAN PLT VOLUME 8.8 fl (7.5-11.1); MONO % 8.7 % (3.8-10.2); PLATELET COUNT 92 10^3/uL (134-434); RBC 4.23 M/mm3 (3.60-5.2); RDW 18.4 % (11.6-15.6); URINE APPEARANCE CLEAR; URINE BILIRUBIN NEGATIVE (NEGATIVE); URINE COLOR YELLOW; URINE GLUCOSE (UA) NEGATIVE (NEGATIVE); URINE KETONE NEGATIVE (NEGATIVE); URINE LEUK ESTERASE NEGATIVE (NEGATIVE); URINE NITRITE NEGATIVE (NEGATIVE); URINE PROTEIN NEGATIVE (NEGATIVE); WHITE BLOOD COUNT 4.5 K/mm3 (4.0-10.0)
[2021-08-09 12:46] LABS: INR 1.29 (0.83-1.09); PROTHROMBIN TIME (PATIENT) 15.1 SEC (9.7-13.0)
[2021-08-09 12:49] LABS: ACTIVATED PTT 26.7 SECONDS (25.2-36.5)
[2021-08-09 13:02] LABS: CHLORIDE 103 mmol/L (98-107); SODIUM 136 mmol/L (136-145)
[2021-08-09 13:04] LABS: BLOOD UREA NITROGEN 9.3 mg/dL (7-18); CALCIUM 9.5 mg/dL (8.5-10.1)
[2021-08-09 13:05] LABS: ALBUMIN 3.7 g/dl (3.4-5.0); ANION GAP 9 MMOL/L (8-16); CO2 25 mmol/L (21-32); GLUCOSE,RANDOM 150 mg/dL (74-106)
[2021-08-09 13:08] LABS: CREATININE 0.9 mg/dL (0.55-1.3); SGOT/AST 51 U/L (15-37)
[2021-08-09 13:09] LABS: BILIRUBIN,TOTAL 0.8 mg/dL (0.2-1); TOT PROT 7.3 g/dl (6.4-8.2)
[2021-08-09 13:11] LABS: ALK PHOS 194 U/L (45-117)
[2021-08-09 13:16] LABS: SGPT/ALT 62 U/L (13-61)
[2021-08-09] MEDS ORDERED: SOTROVIMAB 500 MG in SODIUM CHLORIDE 100 ML IVPB ONE (16:50)
[2021-08-09 18:21] VITALS: TEMP 98.8
[2021-08-09 19:45] VITALS: BP 125/75
[2021-08-09 21:48] VITALS: PULSE 86
== END 2021-08-09 22:01 | disposition home or self-care (01) ==
LOC: JER 09:40
PROC: 3E033GC Introduction of Other Therapeutic Substance into Peripheral Vein, Percutaneous Approach (ICD-10-PCS; principal; 2021-08-09)
PROC: 3E03329 Introduction of Other Anti-infective into Peripheral Vein, Percutaneous Approach (ICD-10-PCS; 2021-08-09)
PROC: 3E0337Z Introduction of Electrolytic and Water Balance Substance into Peripheral Vein, Percutaneous Approach (ICD-10-PCS; 2021-08-09)
PROC: 3E0337Z Introduction of Electrolytic and Water Balance Substance into Peripheral Vein, Percutaneous Approach (ICD-10-PCS; 2021-08-09)
DX: U07.1 COVID-19 (principal)
CPT/HCPCS: 36415; 71045-TC-FY; 80053; 81003; 83605; 84484; 85025; 85610; 85730; 87040; 87086; 87804; 93005; 93010; 99285-25; C9803; M0247; U0003; U0005

== ENCOUNTER 2021-09-09 12:20 | Emergency (ER) | payer OTHER ==
[2021-09-09 12:38] VITALS: TEMP 98.3; BMI 33.3
[2021-09-09] MEDS ORDERED: SODIUM CHLORIDE FOR INHALATION 3 ML VIAL.NEB IH ONE (14:50)
[2021-09-09 15:39] LABS: CHLORIDE 104 mmol/L (98-107); SODIUM 135 mmol/L (136-145)
[2021-09-09 15:41] LABS: CALCIUM 9.6 mg/dL (8.5-10.1)
[2021-09-09 15:42] LABS: ALBUMIN 3.8 g/dl (3.4-5.0); ANION GAP 6 MMOL/L (8-16); BLOOD UREA NITROGEN 17.8 mg/dL (7-18); CO2 26 mmol/L (21-32); GLUCOSE,RANDOM 264 mg/dL (74-106); MAGNESIUM 2.3 mg/dL (1.8-2.4)
[2021-09-09 15:45] LABS: CREATININE 0.9 mg/dL (0.55-1.3); SGOT/AST 83 U/L (15-37); SGPT/ALT 63 U/L (13-61)
[2021-09-09 15:46] LABS: BASO % 0.6 % (0-2.0); EOS % 0.1 % (0-4.5); HEMATOCRIT 36.5 % (32.4-45.2); HEMOGLOBIN 12.3 GM/dL (10.7-15.3); LYMPH % 14.3 % (8-40); MCH 27.7 pg (25.7-33.7); MCHC 33.7 g/dl (32.0-36.0); MEAN CELL VOLUME 82.2 fl (80-96); MEAN PLT VOLUME 9.2 fl (7.5-11.1); MONO % 4.4 % (3.8-10.2); NEUT % 80.6 % (42.8-82.8); PLATELET COUNT 173 10^3/uL (134-434); RBC 4.44 M/mm3 (3.60-5.2); RDW 17.4 % (11.6-15.6); TOT PROT 7.7 g/dl (6.4-8.2); WHITE BLOOD COUNT 8.3 K/mm3 (4.0-10.0)
[2021-09-09 15:47] LABS: ALK PHOS 297 U/L (45-117); BILIRUBIN,TOTAL 0.9 mg/dL (0.2-1)
[2021-09-09 18:08] VITALS: BP 146/92; PULSE 69
[2021-09-09] MEDS ORDERED: HYDROmorphone HCL 2 MG TABLET PO ONE (18:16)
[2021-09-09] MEDS ORDERED: HYDROmorphone HCL 2 MG TABLET ONE (18:21)
== END 2021-09-09 18:49 | disposition home or self-care (01) ==
LOC: JER 12:20 → JERFT 12:20 → JER 18:49
DX: R05.1 Acute cough (principal); R06.02 Shortness of breath; C50.919 Malignant neoplasm of unspecified site of unspecified female breast
CPT/HCPCS: 36415; 71046-TC-FY; 71275-TC; 80053; 82550; 82553; 82962; 83735; 84484; 85025; 93005; 93010; 99285-25; Q9967

== ENCOUNTER 2021-09-26 19:13 | Emergency (ER) | payer OTHER ==
[2021-09-26 19:59] VITALS: TEMP 98.3; BMI 34.1
[2021-09-26] MEDS ORDERED: HYDROmorphone HCL 2 MG TABLET PO ONE (23:18)
[2021-09-26] MEDS ORDERED: HYDROmorphone HCL CARPU-JECT 2 MG/1 ML DISP.SYRIN IM ONE (23:32)
[2021-09-26] MEDS ORDERED: HYDROmorphone HCl 2 MG/ML VIAL ONE (23:33)
[2021-09-27 00:40] VITALS: BP 169/71; PULSE 70
== END 2021-09-27 01:05 | disposition home or self-care (01) ==
LOC: JER 19:13
PROC: 3E023GC Introduction of Other Therapeutic Substance into Muscle, Percutaneous Approach (ICD-10-PCS; principal; 2021-09-26)
DX: M54.41 Lumbago with sciatica, right side (principal); M62.830 Muscle spasm of back
CPT/HCPCS: 72100-TC-FY; 72131-TC; 72192-TC; 93005; 93010; 99284-25

== ENCOUNTER 2021-10-09 13:59 | Observation (INO) | payer OTHER ==
[2021-10-09 14:08] VITALS: BMI 34.1
[2021-10-09] MEDS ORDERED: ALBUTEROL SO4 2.5/IPRATROPIUM 0.5 INH SOL 3 ML VIAL.NEB. NEB ONE ×2 (14:56→15:23)
[2021-10-09 15:37] LABS: BASO % 0.2 % (0-2.0); HEMATOCRIT 38.5 % (32.4-45.2); HEMOGLOBIN 12.5 GM/dL (10.7-15.3); MCH 26.4 pg (25.7-33.7); MCHC 32.6 g/dl (32.0-36.0); MEAN CELL VOLUME 80.9 fl (80-96); MEAN PLT VOLUME 8.6 fl (7.5-11.1); MONO % 2.5 % (3.8-10.2); NEUT % 89.3 % (42.8-82.8); PLATELET COUNT 152 10^3/uL (134-434); RBC 4.75 M/mm3 (3.60-5.2); RDW 18.2 % (11.6-15.6); WHITE BLOOD COUNT 7.8 K/mm3 (4.0-10.0)
[2021-10-09 16:04] LABS: ALBUMIN 3.6 g/dl (3.4-5.0); BLOOD UREA NITROGEN 18.6 mg/dL (7-18); CALCIUM 9.5 mg/dL (8.5-10.1)
[2021-10-09 16:07] LABS: CREATININE 1.1 mg/dL (0.55-1.3)
[2021-10-09 16:09] LABS: BILIRUBIN,TOTAL 0.8 mg/dL (0.2-1)
[2021-10-09 16:12] LABS: N-TERMINAL BNP 396.3 pg/ml (5-125)
[2021-10-09] MEDS ORDERED: HYDROmorphone HCL CARPU-JECT 2 MG/1 ML DISP.SYRIN IVPUSH ONE (17:31)
[2021-10-09] MEDS ORDERED: HYDROmorphone HCl 2 MG/ML VIAL ONE (17:52)
[2021-10-09] MEDS ORDERED: methylPREDNISolone NA SUCC 125 MG/2 ML VIAL IVPB ONE (18:39)
[2021-10-09] MEDS ORDERED: methylPREDNISolone NA SUCC 125 MG/2 ML VIAL ONE ×2 (18:44→20:04)
[2021-10-10] MEDS ORDERED: HYDROmorphone HCL 2 MG TABLET PO PRN (05:23)
[2021-10-10] MEDS ORDERED: LEVALBUTEROL HCL 0.63 MG/3 ML VIAL.NEB. IH PRN (07:41)
[2021-10-10] MEDS ORDERED: diphenhydrAMINE HCL 50 MG CAPSULE PO PRN (07:44)
[2021-10-10] MEDS ORDERED: ALPRAZolam 0.25 MG TABLET PO PRN (07:47)
[2021-10-10] MEDS ORDERED: diphenhydrAMINE HCL 25 MG CAPSULE (FP) PO PRN (07:56)
[2021-10-10] MEDS: METHOCARBAMOL 500 MG TABLET PO SCH ×4 (08:44→21:18)
[2021-10-10] MEDS: PANTOPRAZOLE 40 MG TABLET PO SCH ×2 (10:00→10:03)
[2021-10-10] MEDS: guaiFENesin 600 MG TABLET.ER (FP) PO SCH ×3 (10:00→21:18)
[2021-10-10] MEDS ORDERED: predniSONE 20 MG TABLET (UD) PO SCH (10:00)
[2021-10-10] MEDS: TIOTROPIUM BROMIDE 2.5 MCG (SPIRIVA) RESPIMAT INHALER IH SCH (10:04)
[2021-10-10] MEDS: BUDESONIDE/FORMETEROL FUMARATE 160/4.5 mcg INHALER IH SCH ×2 (10:04→21:02)
[2021-10-10] MEDS ORDERED: FENTANYL PATCH WASTE TD PRN (10:15)
[2021-10-10] MEDS: HYDROmorphone HCL 2 MG TABLET PO PRN ×3 (10:55→21:13)
[2021-10-10] MEDS: fentaNYL 25mcg/hr PATCH.TD72 TD SCH (10:57)
[2021-10-10] MEDS: methylPREDNISolone NA SUCC 40 MG/1 ML VIAL IVPUSH SCH ×3 (11:11→21:02)
[2021-10-10] MEDS: INSULIN SLIDING SCALE (NOVOLOG) 1 VIAL SQ SCH ×3 (11:13→21:12)
[2021-10-11] MEDS: methylPREDNISolone NA SUCC 40 MG/1 ML VIAL IVPUSH SCH ×4 (02:25→21:19)
[2021-10-11] MEDS: METHOCARBAMOL 500 MG TABLET PO SCH ×3 (06:14→21:28)
[2021-10-11] MEDS: INSULIN SLIDING SCALE (NOVOLOG) 1 VIAL SQ SCH ×3 (06:20→21:32)
[2021-10-11] MEDS ORDERED: INSULIN SLIDING SCALE (NOVOLOG) 1 VIAL SQ SCH ×3 (07:53→11:20)
[2021-10-11] MEDS: guaiFENesin 600 MG TABLET.ER (FP) PO SCH ×2 (09:47→21:19)
[2021-10-11] MEDS: PANTOPRAZOLE 40 MG TABLET PO SCH (09:47)
[2021-10-11] MEDS: HYDROmorphone HCL 2 MG TABLET PO PRN ×2 (09:52→15:41)
[2021-10-11] MEDS: BUDESONIDE/FORMETEROL FUMARATE 160/4.5 mcg INHALER IH SCH ×2 (09:52→21:28)
[2021-10-11] MEDS: TIOTROPIUM BROMIDE 2.5 MCG (SPIRIVA) RESPIMAT INHALER IH SCH (09:52)
[2021-10-11] MEDS ORDERED: INSULIN (NOVOLOG) ASPART 100 UNITS/ML 10ML VIAL SQ ONE (11:20)
[2021-10-11] MEDS ORDERED: INSULIN (NOVOLOG) ASPART 100 UNITS/ML 10ML VIAL ONE (21:29)
[2021-10-12] MEDS: methylPREDNISolone NA SUCC 40 MG/1 ML VIAL IVPUSH SCH ×3 (02:31→14:15)
[2021-10-12] MEDS: INSULIN SLIDING SCALE (NOVOLOG) 1 VIAL SQ SCH ×2 (06:02→10:53)
[2021-10-12] MEDS: METHOCARBAMOL 500 MG TABLET PO SCH ×2 (06:02→13:11)
[2021-10-12] MEDS: TIOTROPIUM BROMIDE 2.5 MCG (SPIRIVA) RESPIMAT INHALER IH SCH (09:52)
[2021-10-12] MEDS: guaiFENesin 600 MG TABLET.ER (FP) PO SCH (09:52)
[2021-10-12] MEDS: PANTOPRAZOLE 40 MG TABLET PO SCH (09:52)
[2021-10-12] MEDS: BUDESONIDE/FORMETEROL FUMARATE 160/4.5 mcg INHALER IH SCH (09:52)
[2021-10-12] MEDS: HYDROmorphone HCL 2 MG TABLET PO PRN (09:53)
[2021-10-12] MEDS: fentaNYL 25mcg/hr PATCH.TD72 TD SCH (09:53)
[2021-10-12] MEDS ORDERED: predniSONE 20 MG TABLET (UD) PO SCH (10:00)
[2021-10-12 14:20] VITALS: BP 149/87
[2021-10-12 14:44] VITALS: PULSE 63; TEMP 97.6
== END 2021-10-12 15:43 | disposition home or self-care (01) ==
LOC: JER 13:59 → UNDOADMOB 16:35 → INTOOBSV 16:35 → JERBED 16:35 → J6S 10-10 03:24 → JERBED 10-10 17:50
PROVIDERS: ADMIT Internal Medicine; ATTEND Internal Medicine
PROC: 3E0F7GC Introduction of Other Therapeutic Substance into Respiratory Tract, Via Natural or Artificial Opening (ICD-10-PCS; principal; 2021-10-10)
PROC: 3E033NZ Introduction of Analgesics, Hypnotics, Sedatives into Peripheral Vein, Percutaneous Approach (ICD-10-PCS; 2021-10-10)
PROC: 3E013VG Introduction of Insulin into Subcutaneous Tissue, Percutaneous Approach (ICD-10-PCS; 2021-10-10)
PROC: 3E033GC Introduction of Other Therapeutic Substance into Peripheral Vein, Percutaneous Approach (ICD-10-PCS; 2021-10-10)
DX: J45.902 Unspecified asthma with status asthmaticus (principal); R05.9 Cough, unspecified; C56.9 Malignant neoplasm of unspecified ovary; C50.919 Malignant neoplasm of unspecified site of unspecified female breast; M62.838 Other muscle spasm; K21.9 Gastro-esophageal reflux disease without esophagitis; I10 Essential (primary) hypertension; M54.41 Lumbago with sciatica, right side; Z91.013 Allergy to seafood; Z91.018 Allergy to other foods; Z88.8 Allergy status to other drugs, medicaments and biological substances; Z88.6 Allergy status to analgesic agent
CPT/HCPCS: 36415; 71046-TC-FY; 80053; 82962; 83880; 84484; 85025; 93005; 93010; 99285-25; C9803; G0378; U0003; U0005

== ENCOUNTER 2021-11-28 10:18 | Emergency (ER) | payer OTHER ==
[2021-11-28 10:30] VITALS: BP 131/59; PULSE 67; TEMP 98.7; BMI 34.4
[2021-11-28 13:48] LABS: BASO % 0.4 % (0-2.0); EOS % 0.1 % (0-4.5); HEMATOCRIT 39.8 % (32.4-45.2); LYMPH % 15.1 % (8-40); MCH 26.9 pg (25.7-33.7); MCHC 32.7 g/dl (32.0-36.0); MEAN CELL VOLUME 82.3 fl (80-96); MEAN PLT VOLUME 8.6 fl (7.5-11.1); MONO % 4.6 % (3.8-10.2); NEUT % 79.8 % (42.8-82.8); PLATELET COUNT 149 10^3/uL (134-434); RBC 4.84 M/mm3 (3.60-5.2); RDW 21.3 % (11.6-15.6); WHITE BLOOD COUNT 7.8 K/mm3 (4.0-10.0)
[2021-11-28 13:55] LABS: INR 1.19 (0.83-1.09); PROTHROMBIN TIME (PATIENT) 13.7 SEC (9.7-13.0)
[2021-11-28 14:03] LABS: CALCIUM 9.6 mg/dL (8.5-10.1)
[2021-11-28 14:07] LABS: ACTIVATED PTT 26.3 SECONDS (25.2-36.5); CREATININE 0.8 mg/dL (0.55-1.3)
[2021-11-28 14:09] LABS: BILIRUBIN,TOTAL 1.2 mg/dL (0.2-1); TOT PROT 7.4 g/dl (6.4-8.2)
[2021-11-29 10:07] LABS: SARS-CoV-2 NAA Not Detected (Not Detected)
== END 2021-11-28 15:47 | disposition home or self-care (01) ==
LOC: JER 10:18
DX: J06.9 Acute upper respiratory infection, unspecified (principal); E13.65 Other specified diabetes mellitus with hyperglycemia
CPT/HCPCS: 36415; 71046-TC-FY; 80053; 85025; 85610; 85730; 87804; 99284-25; C9803-CS; U0003; U0005

== ENCOUNTER 2021-11-29 17:10 | Inpatient (IN) | payer OTHER ==
[2021-11-29 17:18] VITALS: BMI 34.4
[2021-11-29] MEDS ORDERED: ACETAMINOPHEN 500 MG TABLET (FP) PO ONE (18:20)
[2021-11-29] MEDS ORDERED: ACETAMINOPHEN 325 MG TABLET (FP) ONE (18:23)
[2021-11-29 19:23] LABS: BASO % 0.2 % (0-2.0); EOS % 0.2 % (0-4.5); HEMATOCRIT 36.6 % (32.4-45.2); HEMOGLOBIN 12.3 GM/dL (10.7-15.3); LYMPH % 21.6 % (8-40); MCH 27.6 pg (25.7-33.7); MCHC 33.5 g/dl (32.0-36.0); MEAN CELL VOLUME 82.3 fl (80-96); MEAN PLT VOLUME 8.5 fl (7.5-11.1); MONO % 5.1 % (3.8-10.2); NEUT % 72.9 % (42.8-82.8); PLATELET COUNT 158 10^3/uL (134-434); RBC 4.45 M/mm3 (3.60-5.2); RDW 21.5 % (11.6-15.6); WHITE BLOOD COUNT 6.7 K/mm3 (4.0-10.0)
[2021-11-29 19:38] LABS: CALCIUM 9.6 mg/dL (8.5-10.1)
[2021-11-29 19:39] LABS: ALBUMIN 3.9 g/dl (3.4-5.0); BLOOD UREA NITROGEN 15.3 mg/dL (7-18)
[2021-11-29 19:41] LABS: CREATININE 0.8 mg/dL (0.55-1.3)
[2021-11-29 19:42] LABS: TOT PROT 7.3 g/dl (6.4-8.2)
[2021-11-29 19:43] LABS: BILIRUBIN,TOTAL 0.8 mg/dL (0.2-1)
[2021-11-29] MEDS ORDERED: SODIUM CHLORIDE 0.9% 500 ML INFUS.BAG IV ONE (20:01)
[2021-11-29] MEDS ORDERED: ALBUTEROL SO4 2.5/IPRATROPIUM 0.5 INH SOL 3 ML VIAL.NEB. NEB ONE (20:25)
[2021-11-29] MEDS: ALBUTEROL SO4 2.5/IPRATROPIUM 0.5 INH SOL 3 ML VIAL.NEB. NEB SCH ×3 (20:32→20:57)
[2021-11-29 21:25] LABS: URINE APPEARANCE CLEAR; URINE BILIRUBIN NEGATIVE (NEGATIVE); URINE COLOR YELLOW; URINE GLUCOSE (UA) 3+ (NEGATIVE); URINE KETONE NEGATIVE (NEGATIVE); URINE LEUK ESTERASE NEGATIVE (NEGATIVE); URINE NITRITE NEGATIVE (NEGATIVE); URINE PROTEIN NEGATIVE (NEGATIVE); URINE UROBILINOGEN 0.2 mg/dL (0.2-1.0)
[2021-11-29] MEDS ORDERED: AZITHROMYCIN IVPB 500 MG in DEXTROSE 5%-WATER - 250 ML IVPB ONE (22:11)
[2021-11-29] MEDS ORDERED: methylPREDNISolone NA SUCC 125 MG/2 ML VIAL IVPB ONE (22:11)
[2021-11-29] MEDS ORDERED: CEFTRIAXONE 1,000 MG in DEXTROSE 5%-WATER - 50 ML IVPB ONE (22:11)
[2021-11-29] MEDS ORDERED: CEFTRIAXONE 1 GM/50 ML BAG ONE (22:31)
[2021-11-29] MEDS ORDERED: methylPREDNISolone NA SUCC 40 MG/1 ML VIAL ONE (22:32)
[2021-11-29] MEDS ORDERED: AZITHROMYCIN IVPB 500 MG/250 ML BAG IVPB ONE (23:04)
[2021-11-29] MEDS ORDERED: LEVALBUTEROL HCL 0.63 MG/3 ML VIAL.NEB. IH PRN (23:49)
[2021-11-30] MEDS ORDERED: ONDANSETRON 4 MG TABLET PO PRN (00:26)
[2021-11-30] MEDS ORDERED: INSULIN (NOVOLOG) ASPART 100 UNITS/ML 10ML VIAL SQ ONE (01:13)
[2021-11-30] MEDS ORDERED: methylPREDNISolone NA SUCC 40 MG/1 ML VIAL ONE (01:59)
[2021-11-30] MEDS: methylPREDNISolone NA SUCC 40 MG/1 ML VIAL IVPUSH SCH ×3 (02:06→17:29)
[2021-11-30] MEDS ORDERED: DOCUSATE SODIUM 100 MG CAPSULE (FP) PO PRN (05:31)
[2021-11-30] MEDS: INSULIN SLIDING SCALE (NOVOLOG) 1 VIAL SQ SCH ×4 (06:44→21:34)
[2021-11-30] MEDS ORDERED: INSULIN SLIDING SCALE (NOVOLOG) 1 VIAL SQ SCH (07:00)
[2021-11-30 08:49] LABS: BASO % 0.1 % (0-2.0); HEMATOCRIT 35.5 % (32.4-45.2); LYMPH % 19.4 % (8-40); MCH 27.7 pg (25.7-33.7); MCHC 33.9 g/dl (32.0-36.0); MEAN CELL VOLUME 81.9 fl (80-96); MEAN PLT VOLUME 8.7 fl (7.5-11.1); MONO % 1.4 % (3.8-10.2); NEUT % 79.1 % (42.8-82.8); PLATELET COUNT 133 10^3/uL (134-434); RBC 4.34 M/mm3 (3.60-5.2); RDW 21.2 % (11.6-15.6); WHITE BLOOD COUNT 4.8 K/mm3 (4.0-10.0)
[2021-11-30 09:23] LABS: ALBUMIN 3.7 g/dl (3.4-5.0)
[2021-11-30 09:24] LABS: BILIRUBIN,TOTAL 0.8 mg/dL (0.2-1); BLOOD UREA NITROGEN 14.9 mg/dL (7-18); CALCIUM 9.6 mg/dL (8.5-10.1); MAGNESIUM 2.1 mg/dL (1.8-2.4); PHOSPHOROUS 4.2 mg/dL (2.5-4.9); TOT PROT 7.1 g/dl (6.4-8.2)
[2021-11-30 09:26] LABS: CREATININE 0.7 mg/dL (0.55-1.3)
[2021-11-30] MEDS ORDERED: AZITHROMYCIN IVPB 500 MG in DEXTROSE 5%-WATER - 250 ML IVPB SCH (10:00)
[2021-11-30] MEDS ORDERED: cefTRIAXone SODIUM 1 GM VIAL ONE (10:28)
[2021-11-30] MEDS ORDERED: DEXTROSE 5%-WATER - 50 ML IVPB ONE (10:28)
[2021-11-30] MEDS: fentaNYL 25mcg/hr PATCH.TD72 TD SCH (10:32)
[2021-11-30] MEDS: ENOXAPARIN NA (PORCINE) 40 MG/0.4 ML DISP.SYRIN SQ SCH (10:33)
[2021-11-30] MEDS: PANTOPRAZOLE 40 MG TABLET PO SCH ×2 (10:33→11:08)
[2021-11-30] MEDS: CEFTRIAXONE 1 GM in DEXTROSE 5%-WATER - 50 ML IVPB SCH (10:33)
[2021-11-30] MEDS: BUDESONIDE/FORMETEROL FUMARATE 160/4.5 mcg INHALER IH SCH ×2 (10:35→21:34)
[2021-11-30] MEDS: TIOTROPIUM BROMIDE 2.5 MCG (SPIRIVA) RESPIMAT INHALER IH SCH (10:37)
[2021-11-30] MEDS: FENTANYL PATCH WASTE MC PRN (11:17)
[2021-11-30] MEDS ORDERED: ALPRAZolam 0.25 MG TABLET PO PRN (12:53)
[2021-11-30] MEDS ORDERED: guaiFENesin/CODEINE 10 ML UNIT-DOSE CUPS PO PRN (12:55)
[2021-11-30] MEDS: PATIENT'S OWN MEDICATION (NON-FORMULARY) (Benzonatate 100 MG Capsule) PO SCH ×3 (14:42→21:44)
[2021-11-30] MEDS: HYDROmorphone HCL 2 MG TABLET PO PRN ×2 (15:14→21:44)
[2021-11-30 17:07] LABS: SARS-CoV-2 NAA Not Detected (Not Detected)
[2021-11-30] MEDS: AZITHROMYCIN IVPB 500 MG/250 ML BAG IVPB SCH (17:26)
[2021-11-30] MEDS: LEVALBUTEROL HCL 0.63 MG/3 ML VIAL.NEB. IH SCH (20:29)
[2021-11-30] MEDS: guaiFENesin/D-METHORPHAN HB 10 ML UNIT-DOSE CUPS PO PRN (21:44)
[2021-11-30] MEDS ORDERED: propRANOLol HCL 10 MG TABLET PO ONE (22:37)
[2021-12-01] MEDS: methylPREDNISolone NA SUCC 40 MG/1 ML VIAL IVPUSH SCH ×3 (01:14→17:04)
[2021-12-01] MEDS: PATIENT'S OWN MEDICATION (NON-FORMULARY) (Benzonatate 100 MG Capsule) PO SCH ×3 (06:11→22:18)
[2021-12-01] MEDS: guaiFENesin/D-METHORPHAN HB 10 ML UNIT-DOSE CUPS PO PRN (06:11)
[2021-12-01] MEDS: INSULIN SLIDING SCALE (NOVOLOG) 1 VIAL SQ SCH ×4 (06:13→22:19)
[2021-12-01] MEDS: LEVALBUTEROL HCL 0.63 MG/3 ML VIAL.NEB. IH SCH ×4 (07:39→21:06)
[2021-12-01 08:20] LABS: BASO % 0.1 % (0-2.0); HEMOGLOBIN 12.1 GM/dL (10.7-15.3); LYMPH % 14.8 % (8-40); MCH 28.5 pg (25.7-33.7); MCHC 34.5 g/dl (32.0-36.0); MEAN CELL VOLUME 82.6 fl (80-96); MEAN PLT VOLUME 8.7 fl (7.5-11.1); MONO % 2.7 % (3.8-10.2); NEUT % 82.4 % (42.8-82.8); PLATELET COUNT 132 10^3/uL (134-434); RBC 4.24 M/mm3 (3.60-5.2); RDW 21.5 % (11.6-15.6)
[2021-12-01 08:24] LABS: BLOOD UREA NITROGEN 19.6 mg/dL (7-18)
[2021-12-01 08:25] LABS: ALBUMIN 3.5 g/dl (3.4-5.0); MAGNESIUM 2.2 mg/dL (1.8-2.4)
[2021-12-01 08:28] LABS: CREATININE 0.7 mg/dL (0.55-1.3)
[2021-12-01 08:30] LABS: BILIRUBIN,TOTAL 0.8 mg/dL (0.2-1); TOT PROT 6.6 g/dl (6.4-8.2)
[2021-12-01] MEDS ORDERED: cefTRIAXone SODIUM 1 GM VIAL ONE (09:01)
[2021-12-01] MEDS ORDERED: DEXTROSE 5%-WATER - 50 ML IVPB ONE (09:01)
[2021-12-01] MEDS: ENOXAPARIN NA (PORCINE) 40 MG/0.4 ML DISP.SYRIN SQ SCH (09:10)
[2021-12-01] MEDS: CEFTRIAXONE 1 GM in DEXTROSE 5%-WATER - 50 ML IVPB SCH (09:11)
[2021-12-01] MEDS: TIOTROPIUM BROMIDE 2.5 MCG (SPIRIVA) RESPIMAT INHALER IH SCH (09:12)
[2021-12-01] MEDS: BUDESONIDE/FORMETEROL FUMARATE 160/4.5 mcg INHALER IH SCH ×2 (09:14→22:24)
[2021-12-01] MEDS: PANTOPRAZOLE 40 MG TABLET PO SCH (09:18)
[2021-12-01] MEDS: AZITHROMYCIN IVPB 500 MG/250 ML BAG IVPB SCH (10:27)
[2021-12-01] MEDS ORDERED: ACETAMINOPHEN 325 MG TABLET (FP) PO PRN ×2 (11:41→11:43)
[2021-12-01] MEDS ORDERED: INSULIN (LEVEMIR) 100 UNITS/ML UNITS SQ ONE (13:30)
[2021-12-01] MEDS: HYDROmorphone HCL 2 MG TABLET PO PRN ×2 (14:01→22:08)
[2021-12-01] MEDS: INSULIN (LEVEMIR) 100 UNITS/ML UNITS SQ SCH (22:21)
[2021-12-02] MEDS: methylPREDNISolone NA SUCC 40 MG/1 ML VIAL IVPUSH SCH ×3 (01:12→17:05)
[2021-12-02] MEDS: PATIENT'S OWN MEDICATION (NON-FORMULARY) (Benzonatate 100 MG Capsule) PO SCH ×3 (06:16→22:00)
[2021-12-02] MEDS: INSULIN SLIDING SCALE (NOVOLOG) 1 VIAL SQ SCH ×4 (06:21→22:00)
[2021-12-02] MEDS: HYDROmorphone HCL 2 MG TABLET PO PRN (06:26)
[2021-12-02] MEDS ORDERED: MAG HYDROX/AL HYDROX/SIMETH 30 ML UNIT-DOSE CUP PO ONE (06:33)
[2021-12-02] MEDS: LEVALBUTEROL HCL 0.63 MG/3 ML VIAL.NEB. IH SCH ×3 (07:31→20:15)
[2021-12-02 09:02] LABS: HEMATOCRIT 34.2 % (32.4-45.2); HEMOGLOBIN 11.7 GM/dL (10.7-15.3); MCH 28.2 pg (25.7-33.7); MCHC 34.2 g/dl (32.0-36.0); MEAN CELL VOLUME 82.4 fl (80-96); MEAN PLT VOLUME 8.6 fl (7.5-11.1); PLATELET COUNT 152 10^3/uL (134-434); RBC 4.15 M/mm3 (3.60-5.2); RDW 21.1 % (11.6-15.6)
[2021-12-02 09:10] LABS: CALCIUM 9.2 mg/dL (8.5-10.1)
[2021-12-02 09:11] LABS: ALBUMIN 3.6 g/dl (3.4-5.0); BLOOD UREA NITROGEN 21.5 mg/dL (7-18); MAGNESIUM 2.4 mg/dL (1.8-2.4)
[2021-12-02 09:14] LABS: CREATININE 0.8 mg/dL (0.55-1.3)
[2021-12-02 09:16] LABS: BILIRUBIN,TOTAL 0.6 mg/dL (0.2-1); TOT PROT 6.6 g/dl (6.4-8.2)
[2021-12-02] MEDS ORDERED: DEXTROSE 5%-WATER - 50 ML IVPB ONE (09:55)
[2021-12-02] MEDS ORDERED: cefTRIAXone SODIUM 1 GM VIAL ONE (09:55)
[2021-12-02] MEDS: CEFTRIAXONE 1 GM in DEXTROSE 5%-WATER - 50 ML IVPB SCH (10:07)
[2021-12-02] MEDS: PANTOPRAZOLE 40 MG TABLET PO SCH (10:08)
[2021-12-02] MEDS: ENOXAPARIN NA (PORCINE) 40 MG/0.4 ML DISP.SYRIN SQ SCH (10:08)
[2021-12-02] MEDS: fentaNYL 25mcg/hr PATCH.TD72 TD SCH (10:09)
[2021-12-02] MEDS: BUDESONIDE/FORMETEROL FUMARATE 160/4.5 mcg INHALER IH SCH ×2 (10:10→22:08)
[2021-12-02] MEDS: TIOTROPIUM BROMIDE 2.5 MCG (SPIRIVA) RESPIMAT INHALER IH SCH (10:10)
[2021-12-02] MEDS: guaiFENesin/D-METHORPHAN HB 10 ML UNIT-DOSE CUPS PO PRN ×2 (10:15→22:22)
[2021-12-02] MEDS: AZITHROMYCIN IVPB 500 MG/250 ML BAG IVPB SCH (10:17)
[2021-12-02] MEDS: INSULIN (LEVEMIR) 100 UNITS/ML UNITS SQ SCH ×2 (10:21→22:02)
[2021-12-02] MEDS: FENTANYL PATCH WASTE MC PRN (11:02)
[2021-12-02 11:33] LABS: ANISOCYTOSIS 3+; MACROCYTOSIS 0
[2021-12-02] MEDS ORDERED: ACETAMINOPHEN 1000 MG/100 ML BAG IVPB ONE (22:09)
[2021-12-03] MEDS: methylPREDNISolone NA SUCC 40 MG/1 ML VIAL IVPUSH SCH ×2 (01:05→10:01)
[2021-12-03] MEDS: HYDROmorphone HCL 2 MG TABLET PO PRN ×2 (06:23→11:24)
[2021-12-03] MEDS: INSULIN SLIDING SCALE (NOVOLOG) 1 VIAL SQ SCH ×2 (06:24→11:25)
[2021-12-03] MEDS: PATIENT'S OWN MEDICATION (NON-FORMULARY) (Benzonatate 100 MG Capsule) PO SCH ×2 (06:24→13:24)
[2021-12-03] MEDS: LEVALBUTEROL HCL 0.63 MG/3 ML VIAL.NEB. IH SCH ×2 (08:04→14:30)
[2021-12-03 08:41] LABS: HEMATOCRIT 33.4 % (32.4-45.2); HEMOGLOBIN 11.4 GM/dL (10.7-15.3); MCH 28.2 pg (25.7-33.7); MCHC 34.2 g/dl (32.0-36.0); MEAN CELL VOLUME 82.5 fl (80-96); MEAN PLT VOLUME 8.6 fl (7.5-11.1); PLATELET COUNT 134 10^3/uL (134-434); RBC 4.05 M/mm3 (3.60-5.2); RDW 21.4 % (11.6-15.6); WHITE BLOOD COUNT 9.1 K/mm3 (4.0-10.0)
[2021-12-03 09:08] LABS: CALCIUM 9.1 mg/dL (8.5-10.1)
[2021-12-03 09:09] LABS: ALBUMIN 3.4 g/dl (3.4-5.0); BLOOD UREA NITROGEN 22.9 mg/dL (7-18); MAGNESIUM 2.5 mg/dL (1.8-2.4)
[2021-12-03 09:12] LABS: CREATININE 0.8 mg/dL (0.55-1.3)
[2021-12-03 09:13] LABS: BILIRUBIN,TOTAL 0.6 mg/dL (0.2-1); TOT PROT 6.4 g/dl (6.4-8.2)
[2021-12-03] MEDS ORDERED: cefTRIAXone SODIUM 1 GM VIAL ONE (09:38)
[2021-12-03] MEDS ORDERED: DEXTROSE 5%-WATER - 50 ML IVPB ONE (09:38)
[2021-12-03] MEDS: guaiFENesin/D-METHORPHAN HB 10 ML UNIT-DOSE CUPS PO PRN (10:00)
[2021-12-03] MEDS: CEFTRIAXONE 1 GM in DEXTROSE 5%-WATER - 50 ML IVPB SCH (10:00)
[2021-12-03] MEDS: ENOXAPARIN NA (PORCINE) 40 MG/0.4 ML DISP.SYRIN SQ SCH (10:01)
[2021-12-03] MEDS: PANTOPRAZOLE 40 MG TABLET PO SCH ×2 (10:02→10:04)
[2021-12-03] MEDS: TIOTROPIUM BROMIDE 2.5 MCG (SPIRIVA) RESPIMAT INHALER IH SCH (10:02)
[2021-12-03] MEDS: BUDESONIDE/FORMETEROL FUMARATE 160/4.5 mcg INHALER IH SCH (10:02)
[2021-12-03] MEDS: INSULIN (LEVEMIR) 100 UNITS/ML UNITS SQ SCH (10:03)
[2021-12-03] MEDS: AZITHROMYCIN IVPB 500 MG/250 ML BAG IVPB SCH (10:03)
[2021-12-03 11:04] LABS: ANISOCYTOSIS 2+; MACROCYTOSIS 1+
[2021-12-03 13:28] VITALS: BP 161/82; PULSE 60; TEMP 98.6
== END 2021-12-03 15:50 | disposition home or self-care (01) | DRG 202 ==
LOC: JER 17:10 → JERBED 22:14 → J7W 11-30 04:14
PROVIDERS: ADMIT Hospitalist; ATTEND Nurse Practitioner Family
DX: J45.901 Unspecified asthma with (acute) exacerbation (principal); C79.51 Secondary malignant neoplasm of bone; Z85.3 Personal history of malignant neoplasm of breast; Z85.43 Personal history of malignant neoplasm of ovary; E11.65 Type 2 diabetes mellitus with hyperglycemia; I10 Essential (primary) hypertension
CPT/HCPCS: 36415; 71045-TC-FY; 71275-TC; 80053; 81003; 82962; 83036; 83690; 83735; 83880; 84100; 84484; 85025; 87040; 87086; 87186; 87804; 93005; 93010; 99285-25; C9803-CS; Q9967; U0003; U0005

== ENCOUNTER 2022-02-26 12:45 | Emergency (ER) | payer OTHER ==
[2022-02-26 13:13] VITALS: BP 120/72; PULSE 77; RESP 18; TEMP 98.4; BMI 35.2
[2022-02-26 16:36] LABS: CALCIUM 9.8 mg/dL (8.5-10.1)
[2022-02-26 16:37] LABS: ALBUMIN 4.1 g/dl (3.4-5.0); BASO % 0.7 % (0-2.0); BLOOD UREA NITROGEN 12.3 mg/dL (7-18); EOS % 2.3 % (0-4.5); HEMATOCRIT 41.2 % (32.4-45.2); HEMOGLOBIN 13.7 GM/dL (10.7-15.3); LYMPH % 26.8 % (8-40); MCH 31.2 pg (25.7-33.7); MCHC 33.4 g/dl (32.0-36.0); MEAN CELL VOLUME 93.4 fl (80-96); MEAN PLT VOLUME 10.7 fl (7.5-11.1); MONO % 8.2 % (3.8-10.2); PLATELET COUNT 145 10^3/uL (134-434); RBC 4.41 M/mm3 (3.60-5.2); RDW 18.5 % (11.6-15.6); WHITE BLOOD COUNT 7.8 K/mm3 (4.0-10.0)
[2022-02-26 16:40] LABS: CREATININE 0.9 mg/dL (0.55-1.3)
[2022-02-26 16:41] LABS: BILIRUBIN,TOTAL 1.1 mg/dL (0.2-1); TOT PROT 7.2 g/dl (6.4-8.2)
[2022-02-26 17:32] LABS: PLATELET ESTIMATE ADEQUATE
== END 2022-02-26 19:11 | disposition home or self-care (01) ==
LOC: JER 12:45
DX: J98.01 Acute bronchospasm (principal)
CPT/HCPCS: 36415; 71046-TC-FY; 80053; 85025; 99284-25

== ENCOUNTER 2022-02-27 18:35 | Inpatient (IN) | payer OTHER ==
[2022-02-27 18:58] VITALS: BMI 35.2
[2022-02-27 21:33] LABS: BASO % 0.5 % (0-2.0); EOS % 2.4 % (0-4.5); HEMATOCRIT 39.2 % (32.4-45.2); HEMOGLOBIN 13.2 GM/dL (10.7-15.3); LYMPH % 28.6 % (8-40); MCH 31.4 pg (25.7-33.7); MCHC 33.8 g/dl (32.0-36.0); MEAN CELL VOLUME 92.9 fl (80-96); MEAN PLT VOLUME 9.8 fl (7.5-11.1); MONO % 9.5 % (3.8-10.2); PLATELET COUNT 138 10^3/uL (134-434); RBC 4.22 M/mm3 (3.60-5.2); RDW 19.2 % (11.6-15.6)
[2022-02-27 21:59] LABS: CALCIUM 9.1 mg/dL (8.5-10.1)
[2022-02-27 22:00] LABS: ALBUMIN 3.8 g/dl (3.4-5.0); BLOOD UREA NITROGEN 13.7 mg/dL (7-18); MAGNESIUM 2.1 mg/dL (1.8-2.4)
[2022-02-27 22:03] LABS: CREATININE 0.7 mg/dL (0.55-1.3)
[2022-02-27 22:04] LABS: TOT PROT 6.7 g/dl (6.4-8.2)
[2022-02-27 22:05] LABS: BILIRUBIN,TOTAL 1.3 mg/dL (0.2-1)
[2022-02-27 22:09] LABS: INR 1.42 (0.83-1.09); PROTHROMBIN TIME (PATIENT) 16.4 SEC (9.7-13.0)
[2022-02-27 22:12] LABS: ACTIVATED PTT 28.2 SECONDS (25.2-36.5)
[2022-02-28] MEDS ORDERED: ONDANSETRON 4 MG/2 ML VIAL IVPB ONE (00:16)
[2022-02-28] MEDS ORDERED: SODIUM CHLORIDE 1,000 ML IV STA (00:16)
[2022-02-28] MEDS ORDERED: ONDANSETRON 4 MG/2 ML VIAL ONE (00:28)
[2022-02-28] MEDS ORDERED: ACETAMINOPHEN 325 MG TABLET (FP) PO PRN (02:05)
[2022-02-28] MEDS ORDERED: ONDANSETRON 4 MG/2 ML VIAL IVPUSH PRN (04:06)
[2022-02-28] MEDS ORDERED: HYDROmorphone HCL CARPU-JECT 2 MG/1 ML DISP.SYRIN IVPB PRN (04:14)
[2022-02-28] MEDS ORDERED: LEVALBUTEROL HCL 0.63 MG/3 ML VIAL.NEB. IH PRN (04:19)
[2022-02-28] MEDS ORDERED: FENTANYL PATCH WASTE TD PRN (04:19)
[2022-02-28] MEDS ORDERED: ALPRAZolam 0.25 MG TABLET PO PRN (04:19)
[2022-02-28] MEDS ORDERED: fentaNYL 25mcg/hr PATCH.TD72 TD SCH ×3 (04:30→15:00)
[2022-02-28] MEDS ORDERED: HYDROmorphone HCl 2 MG/ML VIAL ONE (04:44)
[2022-02-28] MEDS: LACTATED RINGERS SOLUTION 1,000 ML/1,000 ML INFUS.BAG IV SCH ×2 (04:55→18:34)
[2022-02-28] MEDS ORDERED: HYDROmorphone HCl 2 MG/ML VIAL IVPB PRN (05:08)
[2022-02-28 06:08] LABS: HEMATOCRIT 37.7 % (32.4-45.2); HEMOGLOBIN 12.5 GM/dL (10.7-15.3); MCH 31.1 pg (25.7-33.7); MCHC 33.2 g/dl (32.0-36.0); MEAN CELL VOLUME 93.5 fl (80-96); MEAN PLT VOLUME 9.9 fl (7.5-11.1); PLATELET COUNT 121 10^3/uL (134-434); RBC 4.03 M/mm3 (3.60-5.2); RDW 19.3 % (11.6-15.6); WHITE BLOOD COUNT 5.3 K/mm3 (4.0-10.0)
[2022-02-28 06:30] LABS: ALBUMIN 3.6 g/dl (3.4-5.0); CALCIUM 9.1 mg/dL (8.5-10.1); MAGNESIUM 2.2 mg/dL (1.8-2.4)
[2022-02-28 06:31] LABS: BLOOD UREA NITROGEN 13.1 mg/dL (7-18)
[2022-02-28 06:33] LABS: PHOSPHOROUS 4.4 mg/dL (2.5-4.9)
[2022-02-28 06:34] LABS: CREATININE 0.7 mg/dL (0.55-1.3)
[2022-02-28 06:35] LABS: TOT PROT 6.4 g/dl (6.4-8.2)
[2022-02-28] MEDS: INSULIN SLIDING SCALE (NOVOLOG) 1 VIAL SQ SCH ×4 (06:44→21:44)
[2022-02-28 08:25] LABS: PH,URINE 5.5 (5.0-8.0); URINE APPEARANCE CLEAR; URINE BILIRUBIN NEGATIVE (NEGATIVE); URINE COLOR YELLOW; URINE GLUCOSE (UA) 1+ (NEGATIVE); URINE KETONE TRACE (NEGATIVE); URINE NITRITE NEGATIVE (NEGATIVE); URINE PROTEIN NEGATIVE (NEGATIVE)
[2022-02-28 08:27] LABS: URINE LEUK ESTERASE NEGATIVE (NEGATIVE)
[2022-02-28 08:28] LABS: EPI CELLS 6.8 /uL (0-25.1); HYALINE CASTS 0.45 /uL (0-3.1); URINE BACTERIA 269.2 /uL (0-1359); URINE RBC 20.5 /uL (0-23.9); URINE WBC 5.4 /uL (0-25.8)
[2022-02-28] MEDS: ENOXAPARIN NA (PORCINE) 40 MG/0.4 ML DISP.SYRIN SQ SCH (12:50)
[2022-02-28] MEDS: predniSONE 5 MG TABLET (UD) PO SCH (12:50)
[2022-02-28] MEDS: LORATADINE 10 MG TABLET PO SCH (12:50)
[2022-02-28] MEDS: FAMOTIDINE 20 MG TABLET PO SCH ×2 (12:57→21:50)
[2022-02-28] MEDS: CAPECITABINE 500 MG TABLET PO SCH ×2 (12:57→21:45)
[2022-02-28] MEDS ORDERED: FENTANYL PATCH WASTE MC PRN (14:50)
[2022-02-28] MEDS ORDERED: fentaNYL 12mcg/hr PATCH.TD72 TD SCH (15:00)
[2022-02-28] MEDS: BUDESONIDE/FORMETEROL FUMARATE 160/4.5 mcg INHALER IH SCH ×2 (17:23→21:47)
[2022-02-28] MEDS: TIOTROPIUM BROMIDE 2.5 MCG (SPIRIVA) RESPIMAT INHALER IH SCH (17:23)
[2022-02-28] MEDS ORDERED: HYDROmorphone HCl 2 MG/ML VIAL IVPB ONE (22:59)
[2022-02-28] MEDS: LIDOCAINE 5% TOPICAL PATCH TP SCH (23:18)
[2022-02-28] MEDS: LIDOCAINE PATCH REMOVAL MC SCH (23:19)
[2022-03-01] MEDS: INSULIN SLIDING SCALE (NOVOLOG) 1 VIAL SQ SCH ×4 (06:21→21:51)
[2022-03-01] MEDS ORDERED: guaiFENesin 200 MG/10 ML 10 ML UNIT-DOSE CUPS PO PRN (07:42)
[2022-03-01 07:48] LABS: BLOOD UREA NITROGEN 10.8 mg/dL (7-18); CALCIUM 9.2 mg/dL (8.5-10.1)
[2022-03-01 07:51] LABS: CREATININE 0.6 mg/dL (0.55-1.3)
[2022-03-01] MEDS: TIOTROPIUM BROMIDE 2.5 MCG (SPIRIVA) RESPIMAT INHALER IH SCH (09:52)
[2022-03-01] MEDS: BUDESONIDE/FORMETEROL FUMARATE 160/4.5 mcg INHALER IH SCH ×2 (09:53→21:56)
[2022-03-01] MEDS: ENOXAPARIN NA (PORCINE) 40 MG/0.4 ML DISP.SYRIN SQ SCH (09:53)
[2022-03-01] MEDS: FAMOTIDINE 20 MG TABLET PO SCH ×2 (09:54→21:51)
[2022-03-01] MEDS: LORATADINE 10 MG TABLET PO SCH (09:54)
[2022-03-01] MEDS: predniSONE 5 MG TABLET (UD) PO SCH (09:55)
[2022-03-01] MEDS: LIDOCAINE 5% TOPICAL PATCH TP SCH ×2 (09:56→10:18)
[2022-03-01] MEDS ORDERED: LIDOCAINE PATCH REMOVAL MC ONE (10:00)
[2022-03-01] MEDS: CAPECITABINE 500 MG TABLET PO SCH ×2 (10:18→21:58)
[2022-03-01] MEDS: LACTATED RINGERS SOLUTION 1,000 ML/1,000 ML INFUS.BAG IV SCH (13:24)
[2022-03-01] MEDS ORDERED: SODIUM CHLORIDE NASAL SPRAY 44 ML BOTTLE NS PRN (14:45)
[2022-03-01] MEDS ORDERED: INSULIN (NOVOLOG) ASPART 100 UNITS/ML 10ML VIAL ONE ×2 (17:14→17:33)
[2022-03-01] MEDS: CEFUROXIME AXETIL 500 MG TABLET PO SCH (21:51)
[2022-03-01] MEDS: LIDOCAINE PATCH REMOVAL MC SCH (21:56)
[2022-03-02] MEDS ORDERED: fentaNYL 25mcg/hr PATCH.TD72 TD SCH (05:08)
[2022-03-02] MEDS: INSULIN SLIDING SCALE (NOVOLOG) 1 VIAL SQ SCH ×2 (06:14→10:44)
[2022-03-02] MEDS ORDERED: BENZOCAINE 20% 57 GM BOTTLE TP ONE (08:32)
[2022-03-02] MEDS ORDERED: ALBUTEROL SO4 HFA INHALER IH ONE (08:32)
[2022-03-02] MEDS: PATIENT'S OWN MEDICATION (NON-FORMULARY) (Benzonatate 100 MG Capsule) PO SCH (08:40)
[2022-03-02 09:36] VITALS: RESP 18
[2022-03-02 09:44] LABS: HEMATOCRIT 36.7 % (32.4-45.2); HEMOGLOBIN 12.2 GM/dL (10.7-15.3); MCH 30.9 pg (25.7-33.7); MCHC 33.3 g/dl (32.0-36.0); MEAN CELL VOLUME 92.6 fl (80-96); MEAN PLT VOLUME 10.1 fl (7.5-11.1); PLATELET COUNT 118 10^3/uL (134-434); RBC 3.96 M/mm3 (3.60-5.2); RDW 19.4 % (11.6-15.6); WHITE BLOOD COUNT 4.8 K/mm3 (4.0-10.0)
[2022-03-02] MEDS ORDERED: INSULIN (NOVOLOG) ASPART 100 UNITS/ML 10ML VIAL ONE (09:59)
[2022-03-02] MEDS: FAMOTIDINE 20 MG TABLET PO SCH (10:16)
[2022-03-02] MEDS: predniSONE 5 MG TABLET (UD) PO SCH (10:16)
[2022-03-02] MEDS: LORATADINE 10 MG TABLET PO SCH (10:16)
[2022-03-02] MEDS: CEFUROXIME AXETIL 500 MG TABLET PO SCH (10:16)
[2022-03-02] MEDS: BUDESONIDE/FORMETEROL FUMARATE 160/4.5 mcg INHALER IH SCH (10:17)
[2022-03-02] MEDS: ENOXAPARIN NA (PORCINE) 40 MG/0.4 ML DISP.SYRIN SQ SCH (10:17)
[2022-03-02] MEDS: TIOTROPIUM BROMIDE 2.5 MCG (SPIRIVA) RESPIMAT INHALER IH SCH (10:17)
[2022-03-02 10:22] LABS: ALBUMIN 3.6 g/dl (3.4-5.0); CALCIUM 9.3 mg/dL (8.5-10.1)
[2022-03-02 10:23] LABS: BLOOD UREA NITROGEN 11.9 mg/dL (7-18)
[2022-03-02 10:25] LABS: CREATININE 0.7 mg/dL (0.55-1.3)
[2022-03-02 10:27] LABS: TOT PROT 6.5 g/dl (6.4-8.2)
[2022-03-02] MEDS: CAPECITABINE 500 MG TABLET PO SCH (10:35)
[2022-03-02] MEDS: LIDOCAINE 5% TOPICAL PATCH TP SCH (10:35)
[2022-03-02 11:29] VITALS: PULSE 58
[2022-03-02 15:23] VITALS: BP 153/75; TEMP 98.4
== END 2022-03-02 16:13 | disposition home or self-care (01) | DRG 392 ==
LOC: JER 18:35 → JERBED 02-28 00:42 → J7W 02-28 08:50
PROVIDERS: ADMIT Hospitalist; ATTEND Internal Medicine
PROC: 0DB68ZX Excision of Stomach, Via Natural or Artificial Opening Endoscopic, Diagnostic (ICD-10-PCS; 2022-03-02)
PROC: 0DB98ZX Excision of Duodenum, Via Natural or Artificial Opening Endoscopic, Diagnostic (ICD-10-PCS; principal; 2022-03-02 14:30)
DX: K21.00 Gastro-esophageal reflux disease with esophagitis, without bleeding (principal); C79.51 Secondary malignant neoplasm of bone; F11.20 Opioid dependence, uncomplicated; N39.0 Urinary tract infection, site not specified; K92.81 Gastrointestinal mucositis (ulcerative); K31.84 Gastroparesis; J04.0 Acute laryngitis; J45.909 Unspecified asthma, uncomplicated; G89.3 Neoplasm related pain (acute) (chronic); C50.919 Malignant neoplasm of unspecified site of unspecified female breast; E03.9 Hypothyroidism, unspecified; I10 Essential (primary) hypertension; E78.6 Lipoprotein deficiency; K29.40 Chronic atrophic gastritis without bleeding; R13.19 Other dysphagia; K29.80 Duodenitis without bleeding; Z85.43 Personal history of malignant neoplasm of ovary; B96.1 Klebsiella pneumoniae [K. pneumoniae] as the cause of diseases classified elsewhere; Z68.35 Body mass index [BMI] 35.0-35.9, adult; E66.9 Obesity, unspecified; T45.1X5A Adverse effect of antineoplastic and immunosuppressive drugs, initial encounter
CPT/HCPCS: 36415; 74177-TC; 74230-TC-FY; 80048; 80053; 81003; 82962; 83690; 83735; 84100; 85025; 85027; 85610; 85730; 87086; 87186; 88305-TC; 92611-GN; 93005; 93010; 99285-25; C9803-CS; U0003; U0005

== ENCOUNTER 2022-03-09 22:10 | Emergency (ER) | payer OTHER ==
[2022-03-09 22:17] VITALS: BP 135/79; PULSE 84; RESP 18; TEMP 98.1; BMI 36.0
[2022-03-10] MEDS ORDERED: SODIUM CHLORIDE 0.9% 500 ML INFUS.BAG IV ONE
[2022-03-10] MEDS ORDERED: MAG HYDROX/AL HYDROX/SIMETH 30 ML UNIT-DOSE CUP PO ONE
[2022-03-10] MEDS ORDERED: MAG HYDROX/AL HYDROX/SIMETH 30 ML UNIT-DOSE CUP ONE (01:21)
[2022-03-10 02:30] LABS: BASO % 0.6 % (0-2.0); EOS % 2.5 % (0-4.5); HEMATOCRIT 35.3 % (32.4-45.2); HEMOGLOBIN 11.9 GM/dL (10.7-15.3); MCH 30.5 pg (25.7-33.7); MCHC 33.8 g/dl (32.0-36.0); MEAN CELL VOLUME 90.3 fl (80-96); MEAN PLT VOLUME 9.9 fl (7.5-11.1); MONO % 12.5 % (3.8-10.2); NEUT % 58.4 % (42.8-82.8); PLATELET COUNT 102 10^3/uL (134-434); RBC 3.91 M/mm3 (3.60-5.2); RDW 17.8 % (11.6-15.6)
[2022-03-10 02:51] LABS: ALBUMIN 3.4 g/dl (3.4-5.0); BLOOD UREA NITROGEN 8.8 mg/dL (7-18)
[2022-03-10 02:54] LABS: CREATININE 0.6 mg/dL (0.55-1.3)
[2022-03-10 02:55] LABS: BILIRUBIN,TOTAL 1.1 mg/dL (0.2-1); TOT PROT 6.4 g/dl (6.4-8.2)
[2022-03-10] MEDS ORDERED: LIDOCAINE VISCOUS 2% ORAL/TOP 15 ML UNIT-DOSE CUP MM ONE (03:17)
[2022-03-10] MEDS ORDERED: DICYCLOMINE HCL 10 MG CAPSULE PO ONE (03:18)
[2022-03-10] MEDS ORDERED: DICYCLOMINE HCL 10 MG CAPSULE ONE (03:47)
[2022-03-10] MEDS ORDERED: LIDOCAINE VISCOUS 2% ORAL/TOP 15 ML UNIT-DOSE CUP ONE (03:47)
== END 2022-03-10 06:40 | disposition home or self-care (01) ==
LOC: JER 22:10
DX: K92.2 Gastrointestinal hemorrhage, unspecified (principal)
CPT/HCPCS: 36415; 71045-TC-FY; 80053; 85025; 86850; 86900; 86901; 99284-25

== ENCOUNTER 2022-04-29 17:19 | Emergency (ER) | payer OTHER ==
[2022-04-29 17:32] VITALS: BP 140/51; PULSE 92; RESP 19; TEMP 99.3; BMI 34.0
[2022-04-29] MEDS ORDERED: LACTATED RINGERS SOLUTION 1000 ML INFUS.BAG IV ONE (18:24)
[2022-04-29] MEDS ORDERED: HYDROmorphone HCL 2 MG TABLET PO ONE (18:27)
[2022-04-29] MEDS ORDERED: ONDANSETRON 4 MG/2 ML VIAL IVPUSH ONE (18:28)
[2022-04-29] MEDS ORDERED: ONDANSETRON 4 MG/2 ML VIAL ONE (18:58)
[2022-04-29] MEDS ORDERED: HYDROmorphone HCL 2 MG TABLET ONE (18:58)
[2022-04-29 19:33] LABS: BASO % 0.4 % (0-2.0); EOS % 1.9 % (0-4.5); HEMATOCRIT 40.2 % (32.4-45.2); HEMOGLOBIN 13.3 GM/dL (10.7-15.3); LYMPH % 25.9 % (8-40); MCH 29.1 pg (25.7-33.7); MCHC 33.1 g/dl (32.0-36.0); MEAN CELL VOLUME 88.2 fl (80-96); MEAN PLT VOLUME 10.2 fl (7.5-11.1); MONO % 10.1 % (3.8-10.2); NEUT % 61.7 % (42.8-82.8); PLATELET COUNT 131 10^3/uL (134-434); RBC 4.56 M/mm3 (3.60-5.2); RDW 19.9 % (11.6-15.6); WHITE BLOOD COUNT 4.7 K/mm3 (4.0-10.0)
[2022-04-29 19:48] LABS: EPI CELLS 3 /uL (0-25.1); HYALINE CASTS 3 /uL (0-3.1); PH,URINE 5.5 (5.0-8.0); URINE APPEARANCE CLEAR; URINE BACTERIA 343 /uL (0-1359); URINE BILIRUBIN NEGATIVE (NEGATIVE); URINE COLOR YELLOW; URINE GLUCOSE (UA) 1+ (NEGATIVE); URINE KETONE TRACE (NEGATIVE); URINE LEUK ESTERASE 2+ (NEGATIVE); URINE NITRITE NEGATIVE (NEGATIVE); URINE PROTEIN NEGATIVE (NEGATIVE); URINE RBC 21 /uL (0-23.9); URINE UROBILINOGEN 0.2 mg/dL (0.2-1.0); URINE WBC 339 /uL (0-25.8)
[2022-04-29 19:58] LABS: CALCIUM 9.4 mg/dL (8.5-10.1)
[2022-04-29 19:59] LABS: ALBUMIN 3.7 g/dl (3.4-5.0); BLOOD UREA NITROGEN 14.8 mg/dL (7-18)
[2022-04-29 20:00] LABS: MAGNESIUM 2.1 mg/dL (1.8-2.4)
[2022-04-29 20:02] LABS: CREATININE 0.9 mg/dL (0.55-1.3)
== END 2022-04-29 21:20 | disposition home or self-care (01) ==
LOC: JER 17:19
PROC: 3E033GC Introduction of Other Therapeutic Substance into Peripheral Vein, Percutaneous Approach (ICD-10-PCS; principal; 2022-04-29)
DX: R05.1 Acute cough (principal); M79.10 Myalgia, unspecified site; N39.0 Urinary tract infection, site not specified
CPT/HCPCS: 0241U-QW; 36415; 71045-TC-FY; 80053; 81003; 83690; 83735; 85025; 87086; 87186; 99284-25

== ENCOUNTER 2022-05-10 16:53 | Inpatient (IN) | payer OTHER ==
[2022-05-10] MEDS ORDERED: FAMOTIDINE 20 MG/50 ML IVPB 20 MG/50 ML MG IVPB ONE ×2 (19:56→21:43)
[2022-05-10] MEDS ORDERED: MAG HYDROX/AL HYDROX/SIMETH 30 ML UNIT-DOSE CUP PO ONE (19:56)
[2022-05-10] MEDS ORDERED: HYDROmorphone HCL CARPU-JECT 2 MG/1 ML DISP.SYRIN IVPUSH ONE ×2 (19:59→23:07)
[2022-05-10] MEDS ORDERED: SODIUM CHLORIDE 1,000 ML IV STA (20:42)
[2022-05-10] MEDS ORDERED: HYDROmorphone HCl 2 MG/ML VIAL ONE ×2 (21:42→23:47)
[2022-05-10] MEDS ORDERED: MAG HYDROX/AL HYDROX/SIMETH 30 ML UNIT-DOSE CUP ONE (21:43)
[2022-05-10 21:44] LABS: EPI CELLS 3 /uL (0-25.1); HYALINE CASTS 1 /uL (0-3.1); URINE APPEARANCE CLOUDY; URINE BACTERIA 200 /uL (0-1359); URINE BILIRUBIN NEGATIVE (NEGATIVE); URINE COLOR YELLOW; URINE GLUCOSE (UA) NEGATIVE (NEGATIVE); URINE KETONE TRACE (NEGATIVE); URINE LEUK ESTERASE 3+ (NEGATIVE); URINE NITRITE NEGATIVE (NEGATIVE); URINE PROTEIN TRACE (NEGATIVE); URINE RBC 31 /uL (0-23.9); URINE UROBILINOGEN 0.2 mg/dL (0.2-1.0); URINE WBC 3509 /uL (0-25.8)
[2022-05-10 22:12] LABS: BASO % 0.4 % (0-2.0); EOS % 0.6 % (0-4.5); HEMATOCRIT 42.7 % (32.4-45.2); HEMOGLOBIN 13.8 GM/dL (10.7-15.3); LYMPH % 14.3 % (8-40); MCH 28.1 pg (25.7-33.7); MCHC 32.3 g/dl (32.0-36.0); MEAN CELL VOLUME 87.1 fl (80-96); MEAN PLT VOLUME 10.3 fl (7.5-11.1); NEUT % 78.7 % (42.8-82.8); PLATELET COUNT 142 10^3/uL (134-434); RDW 19.6 % (11.6-15.6); WHITE BLOOD COUNT 7.3 K/mm3 (4.0-10.0)
[2022-05-10] MEDS ORDERED: CEFTRIAXONE 1,000 MG in DEXTROSE 5%-WATER - 50 ML IVPB ONE (22:15)
[2022-05-10 22:36] LABS: CALCIUM 10.1 mg/dL (8.5-10.1)
[2022-05-10 22:37] LABS: ALBUMIN 3.9 g/dl (3.4-5.0); BLOOD UREA NITROGEN 19.1 mg/dL (7-18); MAGNESIUM 1.9 mg/dL (1.8-2.4)
[2022-05-10 22:39] LABS: CREATININE 0.9 mg/dL (0.55-1.3)
[2022-05-10 22:41] LABS: BILIRUBIN,TOTAL 1.3 mg/dL (0.2-1); TOT PROT 7.6 g/dl (6.4-8.2)
[2022-05-10] MEDS ORDERED: FENTANYL PATCH WASTE MC PRN (23:05)
[2022-05-10] MEDS ORDERED: CEFTRIAXONE 1 GM/50 ML BAG ONE (23:48)
[2022-05-11] MEDS ORDERED: FENTANYL PATCH WASTE MC PRN ×2 (00:01→03:43)
[2022-05-11] MEDS: fentaNYL 25mcg/hr PATCH.TD72 TD SCH (00:15)
[2022-05-11] MEDS ORDERED: ONDANSETRON 4 MG/2 ML VIAL ONE (01:40)
[2022-05-11] MEDS ORDERED: ONDANSETRON 4 MG/2 ML VIAL IVPUSH ONE ×2 (01:41→10:08)
[2022-05-11] MEDS: fentaNYL 12mcg/hr PATCH.TD72 TD SCH (01:46)
[2022-05-11] MEDS ORDERED: LORazepam 2 MG/ML SDV VIAL IVPUSH ONE (02:06)
[2022-05-11 04:05] VITALS: BMI 32.7
[2022-05-11] MEDS: SODIUM CHLORIDE 1,000 ML IV SCH ×2 (04:09→10:43)
[2022-05-11] MEDS: INSULIN SLIDING SCALE (NOVOLOG) 1 VIAL SQ SCH ×4 (06:40→22:30)
[2022-05-11 08:15] LABS: BASO % 0.9 % (0-2.0); EOS % 0.2 % (0-4.5); HEMATOCRIT 39.3 % (32.4-45.2); LYMPH % 17.8 % (8-40); MCH 28.6 pg (25.7-33.7); MEAN CELL VOLUME 86.5 fl (80-96); MEAN PLT VOLUME 9.5 fl (7.5-11.1); MONO % 5.5 % (3.8-10.2); NEUT % 75.6 % (42.8-82.8); PLATELET COUNT 126 10^3/uL (134-434); RBC 4.55 M/mm3 (3.60-5.2); RDW 18.7 % (11.6-15.6); WHITE BLOOD COUNT 5.8 K/mm3 (4.0-10.0)
[2022-05-11 08:23] LABS: INR 1.27 (0.83-1.09); PROTHROMBIN TIME (PATIENT) 14.6 SEC (9.7-13.0)
[2022-05-11 08:46] LABS: ALBUMIN 3.6 g/dl (3.4-5.0); BLOOD UREA NITROGEN 16.8 mg/dL (7-18)
[2022-05-11 08:49] LABS: CALCIUM 9.2 mg/dL (8.5-10.1); CREATININE 0.7 mg/dL (0.55-1.3); MAGNESIUM 2.2 mg/dL (1.8-2.4); PHOSPHOROUS 4.4 mg/dL (2.5-4.9)
[2022-05-11 08:50] LABS: BILIRUBIN,TOTAL 1.1 mg/dL (0.2-1)
[2022-05-11] MEDS: ENOXAPARIN NA (PORCINE) 40 MG/0.4 ML DISP.SYRIN SQ SCH (09:21)
[2022-05-11] MEDS ORDERED: LEVOTHYROXINE SODIUM 100 MCG VIAL IVPUSH SCH ×2 (10:00)
[2022-05-11] MEDS ORDERED: fentaNYL 25mcg/hr PATCH.TD72 TD SCH (10:00)
[2022-05-11] MEDS: HYDROmorphone HCl 2 MG/ML VIAL IVPB PRN (17:56)
[2022-05-11] MEDS: CEFTRIAXONE 1 GM in DEXTROSE 5%-WATER - 50 ML IVPB SCH (22:30)
[2022-05-12] MEDS: HYDROmorphone HCl 2 MG/ML VIAL IVPB PRN ×4 (00:37→23:34)
[2022-05-12] MEDS: SODIUM CHLORIDE 1,000 ML IV SCH ×3 (00:42→12:47)
[2022-05-12] MEDS: INSULIN SLIDING SCALE (NOVOLOG) 1 VIAL SQ SCH ×4 (06:41→22:02)
[2022-05-12] MEDS: ONDANSETRON 4 MG/2 ML VIAL IVPUSH PRN ×2 (09:20→21:54)
[2022-05-12 09:27] LABS: HEMATOCRIT 39.4 % (32.4-45.2); HEMOGLOBIN 12.7 GM/dL (10.7-15.3); MCHC 32.2 g/dl (32.0-36.0); MEAN PLT VOLUME 9.8 fl (7.5-11.1); PLATELET COUNT 113 10^3/uL (134-434); RBC 4.53 M/mm3 (3.60-5.2); WHITE BLOOD COUNT 4.4 K/mm3 (4.0-10.0)
[2022-05-12 09:55] LABS: CALCIUM 9.1 mg/dL (8.5-10.1)
[2022-05-12 09:56] LABS: ALBUMIN 3.2 g/dl (3.4-5.0); MAGNESIUM 2.1 mg/dL (1.8-2.4)
[2022-05-12 09:59] LABS: BILIRUBIN,TOTAL 0.8 mg/dL (0.2-1); CREATININE 0.8 mg/dL (0.55-1.3); PHOSPHOROUS 4.1 mg/dL (2.5-4.9)
[2022-05-12 10:01] LABS: TOT PROT 6.2 g/dl (6.4-8.2)
[2022-05-12] MEDS: CEFTRIAXONE 1 GM in DEXTROSE 5%-WATER - 50 ML IVPB SCH (10:04)
[2022-05-12] MEDS: ENOXAPARIN NA (PORCINE) 40 MG/0.4 ML DISP.SYRIN SQ SCH (10:05)
[2022-05-12] MEDS: PANTOPRAZOLE SODIUM 40 MG VIAL IVPUSH SCH ×2 (12:52→21:52)
[2022-05-12] MEDS ORDERED: AMOX TR/POT CLAV 875MG/125MG TABLETS (FP) PO SCH (17:30)
[2022-05-12] MEDS ORDERED: INSULIN (NOVOLOG) ASPART 100 UNITS/ML 10ML VIAL ONE (21:47)
[2022-05-13] MEDS: SODIUM CHLORIDE 1,000 ML IV SCH ×2 (06:18→06:41)
[2022-05-13] MEDS: INSULIN SLIDING SCALE (NOVOLOG) 1 VIAL SQ SCH ×4 (06:19→21:37)
[2022-05-13] MEDS: HYDROmorphone HCl 2 MG/ML VIAL IVPB PRN ×3 (06:40→15:14)
[2022-05-13] MEDS ORDERED: AMOX TR/POT CLAV 875MG/125MG TABLETS (FP) PO SCH (09:00)
[2022-05-13] MEDS: PANTOPRAZOLE SODIUM 40 MG VIAL IVPUSH SCH (09:28)
[2022-05-13] MEDS: ENOXAPARIN NA (PORCINE) 40 MG/0.4 ML DISP.SYRIN SQ SCH (09:28)
[2022-05-13] MEDS: CEFTRIAXONE 1 GM in DEXTROSE 5%-WATER - 50 ML IVPB SCH (09:48)
[2022-05-13] MEDS: ONDANSETRON 4 MG/2 ML VIAL IVPUSH PRN (10:41)
[2022-05-13 21:54] VITALS: RESP 18
[2022-05-13] MEDS: fentaNYL 25mcg/hr PATCH.TD72 TD SCH (23:47)
[2022-05-14] MEDS: HYDROmorphone HCl 2 MG/ML VIAL IVPB PRN ×3 (00:04→13:49)
[2022-05-14] MEDS: fentaNYL 12mcg/hr PATCH.TD72 TD SCH (00:25)
[2022-05-14] MEDS: INSULIN SLIDING SCALE (NOVOLOG) 1 VIAL SQ SCH ×3 (06:26→16:52)
[2022-05-14] MEDS: CEFTRIAXONE 1 GM in DEXTROSE 5%-WATER - 50 ML IVPB SCH (10:21)
[2022-05-14] MEDS: ENOXAPARIN NA (PORCINE) 40 MG/0.4 ML DISP.SYRIN SQ SCH (10:21)
[2022-05-14 14:28] VITALS: BP 146/68; PULSE 68; TEMP 98.5
== END 2022-05-14 17:30 | disposition home or self-care (01) | DRG 389 ==
LOC: JER 16:53 → JERBED 05-11 00:37 → J7W 05-11 04:31
PROVIDERS: ADMIT Internal Medicine; ATTEND Internal Medicine
PROC: 0D9670Z Drainage of Stomach with Drainage Device, Via Natural or Artificial Opening (ICD-10-PCS; principal; 2022-05-11)
DX: K56.690 Other partial intestinal obstruction (principal); C56.9 Malignant neoplasm of unspecified ovary; C79.51 Secondary malignant neoplasm of bone; N39.0 Urinary tract infection, site not specified; I10 Essential (primary) hypertension; E11.65 Type 2 diabetes mellitus with hyperglycemia; B96.1 Klebsiella pneumoniae [K. pneumoniae] as the cause of diseases classified elsewhere; K57.90 Diverticulosis of intestine, part unspecified, without perforation or abscess without bleeding
CPT/HCPCS: 36415; 71045-TC-FY; 74019-TC-FY; 74021-TC-FY; 74177-TC; 80053; 81003; 82962; 83036; 83690; 83735; 84100; 84484; 85025; 85027; 85610; 87086; 87186; 93005; 93010; 99285-25; C9803-CS; Q9967; U0003; U0005

== ENCOUNTER 2022-05-29 21:05 | Emergency (ER) | payer OTHER ==
[2022-05-29 21:27] VITALS: BP 143/68; PULSE 98; RESP 18; TEMP 100; BMI 32.8
[2022-05-29] MEDS ORDERED: SODIUM CHLORIDE 0.9% 500 ML INFUS.BAG IV ONE (21:54)
[2022-05-29] MEDS ORDERED: ACETAMINOPHEN 1000 MG/100 ML BAG IVPB ONE (21:54)
[2022-05-29] MEDS ORDERED: ONDANSETRON 4 MG/2 ML VIAL IVPUSH ONE (21:57)
[2022-05-29] MEDS ORDERED: ACETAMINOPHEN INJECTION 100 ML IVPB ONE (22:18)
[2022-05-29] MEDS ORDERED: ONDANSETRON 4 MG/2 ML VIAL ONE (22:18)
[2022-05-29 22:50] LABS: BASO % 0.5 % (0-2.0); EOS % 0.2 % (0-4.5); HEMATOCRIT 40.3 % (32.4-45.2); HEMOGLOBIN 13.5 GM/dL (10.7-15.3); LYMPH % 23.5 % (8-40); MCH 28.2 pg (25.7-33.7); MCHC 33.5 g/dl (32.0-36.0); MEAN CELL VOLUME 84.3 fl (80-96); MEAN PLT VOLUME 9.2 fl (7.5-11.1); MONO % 10.7 % (3.8-10.2); NEUT % 65.1 % (42.8-82.8); PLATELET COUNT 168 10^3/uL (134-434); RBC 4.78 M/mm3 (3.60-5.2); WHITE BLOOD COUNT 6.3 K/mm3 (4.0-10.0)
[2022-05-29 23:10] LABS: CALCIUM 9.4 mg/dL (8.5-10.1)
[2022-05-29 23:11] LABS: BLOOD UREA NITROGEN 10.4 mg/dL (7-18); MAGNESIUM 2.1 mg/dL (1.8-2.4)
[2022-05-29 23:14] LABS: CREATININE 0.8 mg/dL (0.55-1.3)
[2022-05-29 23:15] LABS: TOT PROT 7.9 g/dl (6.4-8.2)
[2022-05-29 23:34] LABS: BILIRUBIN,TOTAL 0.8 mg/dL (0.2-1)
== END 2022-05-30 01:35 | disposition home or self-care (01) ==
LOC: JER 21:05
PROC: 3E033GC Introduction of Other Therapeutic Substance into Peripheral Vein, Percutaneous Approach (ICD-10-PCS; principal; 2022-05-29)
DX: U07.1 COVID-19 (principal)
CPT/HCPCS: 0241U-QW; 36415; 71045-TC-FY; 80053; 83735; 85025; 93005; 93010; 99285-25

== ENCOUNTER 2023-06-22 04:34 | Observation (INO) | payer OTHER ==
[2023-06-22] MEDS ORDERED: ALBUTEROL SO4 2.5/IPRATROPIUM 0.5 INH SOL 3 ML VIAL.NEB. NEB ONE ×2 (05:13→06:02)
[2023-06-22] MEDS ORDERED: methylPREDNISolone NA SUCC 125 MG/2 ML VIAL IVPB ONE (05:13)
[2023-06-22 05:34] LABS: BASO % 0.9 % (0-2.0); EOS % 0.8 % (0-4.5); HEMATOCRIT 37.9 % (32.4-45.2); HEMOGLOBIN 12.1 GM/dL (10.7-15.3); LYMPH % 15.1 % (8-40); MCH 26.5 pg (25.7-33.7); MEAN CELL VOLUME 82.8 fl (80-96); MONO % 2.2 % (3.8-10.2); PLATELET COUNT 133 10^3/uL (134-434); RBC 4.58 M/mm3 (3.60-5.2); RDW 20.2 % (11.6-15.6); WHITE BLOOD COUNT 4.9 K/mm3 (4.0-10.0)
[2023-06-22 06:03] LABS: POTASSIUM 4.1 mmol/L (3.5-5.1)
[2023-06-22] MEDS ORDERED: methylPREDNISolone NA SUCC 125 MG/2 ML VIAL ONE (06:03)
[2023-06-22 06:04] LABS: ALBUMIN 3.9 g/dl (3.4-5.0); CALCIUM 8.7 mg/dL (8.5-10.1)
[2023-06-22 06:06] LABS: BLOOD UREA NITROGEN 10.7 mg/dL (7-18); MAGNESIUM 2.1 mg/dL (1.8-2.4)
[2023-06-22 06:09] LABS: CREATININE 0.7 mg/dL (0.55-1.3); TOT PROT 6.5 g/dl (6.4-8.2)
[2023-06-22] MEDS ORDERED: guaiFENesin 200 MG/10 ML 10 ML UNIT-DOSE CUPS PO ONE (07:06)
[2023-06-22] MEDS ORDERED: guaiFENesin/CODEINE 10 ML UNIT-DOSE CUPS ONE (07:24)
[2023-06-22] MEDS ORDERED: AZITHROMYCIN IVPB 500 MG in DEXTROSE 5%-WATER - 250 ML IVPB ONE (07:38)
[2023-06-22] MEDS ORDERED: AZITHROMYCIN IVPB 500 MG/250 ML BAG IVPB ONE (07:46)
[2023-06-22] MEDS ORDERED: ACETAMINOPHEN 1000 MG/100 ML BAG IVPB ONE (07:57)
[2023-06-22] MEDS ORDERED: ACETAMINOPHEN INJECTION 100 ML IVPB ONE (08:41)
[2023-06-22] MEDS ORDERED: CEFTRIAXONE 1 GM/50 ML BAG ONE (08:42)
[2023-06-22] MEDS ORDERED: fentaNYL 50mcg/hr PATCH.TD72 TD SCH ×2 (08:45→20:00)
[2023-06-22] MEDS ORDERED: FENTANYL PATCH WASTE TD PRN (10:00)
[2023-06-22] MEDS: CAPECITABINE 500 MG TABLET PO SCH ×2 (16:10→23:19)
[2023-06-22] MEDS: SENNOSIDES 8.8 MG/5 ML SYRUP PO SCH (22:22)
[2023-06-23] MEDS ORDERED: CEFTRIAXONE 1 GM in DEXTROSE 5%-WATER - 50 ML IVPB SCH (08:00)
[2023-06-23 08:36] LABS: EPI CELLS 3 /uL (0-25.1); HYALINE CASTS 0 /uL (0-3.1); PH,URINE 7.5 (5.0-8.0); URINE APPEARANCE CLEAR; URINE BACTERIA 3 /uL (0-1359); URINE BILIRUBIN NEGATIVE (NEGATIVE); URINE COLOR YELLOW; URINE GLUCOSE (UA) 1+ (NEGATIVE); URINE KETONE NEGATIVE (NEGATIVE); URINE LEUK ESTERASE TRACE (NEGATIVE); URINE NITRITE NEGATIVE (NEGATIVE); URINE PROTEIN NEGATIVE (NEGATIVE); URINE RBC 9 /uL (0-23.9); URINE UROBILINOGEN 0.2 mg/dL (0.2-1.0); URINE WBC 14 /uL (0-25.8)
[2023-06-23] MEDS: methylPREDNISolone NA SUCC 40 MG/1 ML VIAL IVPUSH SCH (09:22)
[2023-06-23] MEDS: CEFTRIAXONE 1 GM in DEXTROSE 5%-WATER - 50 ML IVPB SCH (09:23)
[2023-06-23 09:24] LABS: HEMOGLOBIN 11.6 GM/dL (10.7-15.3); MCH 26.7 pg (25.7-33.7); MCHC 32.2 g/dl (32.0-36.0); MEAN CELL VOLUME 82.8 fl (80-96); MEAN PLT VOLUME 9.6 fl (7.5-11.1); PLATELET COUNT 147 10^3/uL (134-434); RBC 4.34 M/mm3 (3.60-5.2)
[2023-06-23] MEDS: guaiFENesin 200 MG/10 ML 10 ML UNIT-DOSE CUPS PO PRN (09:27)
[2023-06-23] MEDS: SENNOSIDES 8.8 MG/5 ML SYRUP PO SCH (23:51)
[2023-06-24] MEDS ORDERED: ACETAMINOPHEN 325 MG TABLET (FP) PO ONE (04:26)
[2023-06-24 09:25] LABS: BASO % 0.8 % (0-2.0); EOS % 0.4 % (0-4.5); HEMATOCRIT 39.1 % (32.4-45.2); HEMOGLOBIN 12.4 GM/dL (10.7-15.3); LYMPH % 33.8 % (8-40); MCH 26.3 pg (25.7-33.7); MCHC 31.6 g/dl (32.0-36.0); MEAN CELL VOLUME 83.5 fl (80-96); MEAN PLT VOLUME 9.3 fl (7.5-11.1); MONO % 5.6 % (3.8-10.2); NEUT % 59.4 % (42.8-82.8); PLATELET COUNT 179 10^3/uL (134-434); RBC 4.69 M/mm3 (3.60-5.2); RDW 20.7 % (11.6-15.6)
[2023-06-24] MEDS: guaiFENesin 200 MG/10 ML 10 ML UNIT-DOSE CUPS PO PRN (09:25)
[2023-06-24] MEDS: CEFTRIAXONE 1 GM in DEXTROSE 5%-WATER - 50 ML IVPB SCH (09:25)
[2023-06-24] MEDS: methylPREDNISolone NA SUCC 40 MG/1 ML VIAL IVPUSH SCH (09:25)
[2023-06-24] MEDS ORDERED: LEVALBUTEROL HCL 0.63 MG/3 ML VIAL.NEB. IH PRN (09:28)
[2023-06-24 09:55] LABS: ALBUMIN 3.6 g/dl (3.4-5.0); CREATININE 0.8 mg/dL (0.55-1.3)
[2023-06-24 09:57] LABS: BILIRUBIN,TOTAL 0.6 mg/dL (0.2-1); BLOOD UREA NITROGEN 22.7 mg/dL (7-18); TOT PROT 6.4 g/dl (6.4-8.2)
[2023-06-24 10:00] LABS: CALCIUM 8.8 mg/dL (8.5-10.1); MAGNESIUM 2.3 mg/dL (1.8-2.4)
[2023-06-24] MEDS ORDERED: CEFTRIAXONE 2 GM-D5W BAG 2 GM/50 ML BAG IVPB SCH (10:15)
[2023-06-24] MEDS ORDERED: PHENOL 177 ML SPRAY BOTTLE MM PRN (10:30)
[2023-06-24 14:57] VITALS: BP 129/65; PULSE 60; RESP 18; TEMP 97.9
[2023-06-25] MEDS ORDERED: DEXAMETHASONE 4 MG TABLET (FP) PO SCH (10:00)
== END 2023-06-24 15:09 | disposition home or self-care (01) ==
LOC: JER 04:34 → JERBED 07:53 → J8W 09:57
PROVIDERS: ADMIT Internal Medicine; ATTEND Nurse Practitioner Acute Care
PROC: 3E03329 Introduction of Other Anti-infective into Peripheral Vein, Percutaneous Approach (ICD-10-PCS; principal; 2023-06-22)
PROC: 3E033NZ Introduction of Analgesics, Hypnotics, Sedatives into Peripheral Vein, Percutaneous Approach (ICD-10-PCS; 2023-06-22)
PROC: 3E0F7GC Introduction of Other Therapeutic Substance into Respiratory Tract, Via Natural or Artificial Opening (ICD-10-PCS; 2023-06-22)
PROC: 3E033GC Introduction of Other Therapeutic Substance into Peripheral Vein, Percutaneous Approach (ICD-10-PCS; 2023-06-22)
DX: R04.2 Hemoptysis (principal); Z29.89 Encounter for other specified prophylactic measures; J45.901 Unspecified asthma with (acute) exacerbation; C50.919 Malignant neoplasm of unspecified site of unspecified female breast; E11.9 Type 2 diabetes mellitus without complications; K31.84 Gastroparesis; R13.10 Dysphagia, unspecified; I10 Essential (primary) hypertension; Z88.6 Allergy status to analgesic agent; Z88.8 Allergy status to other drugs, medicaments and biological substances; Z91.013 Allergy to seafood; Z91.018 Allergy to other foods
CPT/HCPCS: 0241U-QW; 36415; 71045-TC-FY; 74230-TC-FY; 80053; 81003; 82962; 83735; 84484; 85025; 85027; 87040; 87086; 92611-GN; 93005; 93010; 99285-25; G0378

== ENCOUNTER 2023-07-06 15:33 | Emergency (ER) | payer OTHER ==
[2023-07-06 15:53] VITALS: BMI 29.1
[2023-07-06] MEDS ORDERED: HYDROmorphone HCl 2 MG/ML VIAL IVPUSH ONE (19:44)
[2023-07-06 20:04] LABS: BASO % 0.5 % (0-2.0); EOS % 0.9 % (0-4.5); HEMATOCRIT 34.4 % (32.4-45.2); HEMOGLOBIN 11.5 GM/dL (10.7-15.3); LYMPH % 27.4 % (8-40); MCH 26.7 pg (25.7-33.7); MCHC 33.3 g/dl (32.0-36.0); MEAN CELL VOLUME 80.3 fl (80-96); MEAN PLT VOLUME 8.6 fl (7.5-11.1); MONO % 4.2 % (3.8-10.2); PLATELET COUNT 170 10^3/uL (134-434); RBC 4.29 M/mm3 (3.60-5.2); RDW 19.4 % (11.6-15.6); WHITE BLOOD COUNT 5.3 K/mm3 (4.0-10.0)
[2023-07-06 20:11] LABS: INR 1.24 (0.83-1.09); PROTHROMBIN TIME (PATIENT) 14.4 SEC (9.7-13.0)
[2023-07-06 20:16] LABS: CALCIUM 8.6 mg/dL (8.5-10.1)
[2023-07-06 20:17] LABS: ALBUMIN 3.4 g/dl (3.4-5.0); BLOOD UREA NITROGEN 17.6 mg/dL (7-18); MAGNESIUM 2.3 mg/dL (1.8-2.4)
[2023-07-06 20:20] LABS: CREATININE 0.8 mg/dL (0.55-1.3)
[2023-07-06 20:22] LABS: BILIRUBIN,TOTAL 0.7 mg/dL (0.2-1); TOT PROT 6.1 g/dl (6.4-8.2)
[2023-07-06] MEDS ORDERED: HYDROmorphone HCl 2 MG/ML VIAL ONE (21:09)
[2023-07-07 00:04] VITALS: BP 141/76; PULSE 82; RESP 17; TEMP 97.9
== END 2023-07-07 00:05 | disposition home or self-care (01) ==
LOC: JER 15:33
PROC: 3E033GC Introduction of Other Therapeutic Substance into Peripheral Vein, Percutaneous Approach (ICD-10-PCS; principal; 2023-07-06)
DX: R07.89 Other chest pain (principal); M79.89 Other specified soft tissue disorders; C79.51 Secondary malignant neoplasm of bone; C50.911 Malignant neoplasm of unspecified site of right female breast; C50.912 Malignant neoplasm of unspecified site of left female breast; Z20.822 Contact with and (suspected) exposure to COVID-19
CPT/HCPCS: 0241U-QW; 36415; 71046-TC-FY; 76705-TC; 80053; 83735; 83880; 84484; 85025; 85610; 93005; 93010; 99285-25

== ENCOUNTER 2023-10-05 17:05 | Inpatient (IN) | payer OTHER ==
[2023-10-05 17:55] VITALS: BMI 29.6
[2023-10-05 20:13] LABS: VENOUS O2 SATURATION 89.8 % (70-80); VENOUS PCO2 30.8 mmHg (38-52); VENOUS PH 7.485 (7.310-7.410)
[2023-10-05 20:25] LABS: INR 1.24 (0.83-1.09); PROTHROMBIN TIME (PATIENT) 14.4 SEC (9.7-13.0)
[2023-10-05] MEDS: ONDANSETRON 4 MG/2 ML VIAL IVPUSH ONE (20:30)
[2023-10-05] MEDS ORDERED: ONDANSETRON 4 MG/2 ML VIAL ONE (20:37)
[2023-10-05] MEDS: SODIUM CHLORIDE 0.9% 500 ML INFUS.BAG IV ONE (20:40)
[2023-10-05 20:42] LABS: BLOOD UREA NITROGEN 15.2 mg/dL (7-18)
[2023-10-05 20:43] LABS: ALBUMIN 3.8 g/dl (3.4-5.0)
[2023-10-05 20:47] LABS: BILIRUBIN,TOTAL 1.1 mg/dL (0.2-1); TOT PROT 6.6 g/dl (6.4-8.2)
[2023-10-05 20:50] LABS: CREATININE 0.7 mg/dL (0.55-1.3)
[2023-10-05 21:16] LABS: URINE APPEARANCE CLEAR; URINE BILIRUBIN NEGATIVE (NEGATIVE); URINE COLOR YELLOW; URINE GLUCOSE (UA) NEGATIVE (NEGATIVE); URINE KETONE NEGATIVE (NEGATIVE); URINE LEUK ESTERASE NEGATIVE (NEGATIVE); URINE NITRITE NEGATIVE (NEGATIVE); URINE PROTEIN NEGATIVE (NEGATIVE)
[2023-10-05 21:16] LABS: BASO % 0.4 % (0-2.0); EOS % 1.4 % (0-4.5); HEMATOCRIT 31.6 % (32.4-45.2); HEMOGLOBIN 10.8 GM/dL (10.7-15.3); LYMPH % 7.5 % (8-40); MCH 27.4 pg (25.7-33.7); MCHC 34.3 g/dl (32.0-36.0); MEAN CELL VOLUME 79.8 fl (80-96); MEAN PLT VOLUME 8.7 fl (7.5-11.1); MONO % 13.3 % (3.8-10.2); NEUT % 77.4 % (42.8-82.8); PLATELET COUNT 102 10^3/uL (134-434); RBC 3.96 M/mm3 (3.60-5.2); RDW 19.4 % (11.6-15.6); WHITE BLOOD COUNT 3.3 K/mm3 (4.0-10.0)
[2023-10-05] MEDS ORDERED: HYDROmorphone HCl 2 MG/ML VIAL ONE (21:19)
[2023-10-05] MEDS ORDERED: DEXTROSE 5%-WATER 100 ML IVPB ONE (21:22)
[2023-10-05] MEDS ORDERED: MEROPENEM 1 GM VIAL (RESTRICTED TO ID) IVPB ONE (21:22)
[2023-10-05] MEDS: MEROPENEM 1 GM in DEXTROSE 5%-WATER 100 ML IVPB ONE (21:25)
[2023-10-05] MEDS: HYDROmorphone HCl 2 MG/ML VIAL IVPUSH ONE (21:33)
[2023-10-05] MEDS ORDERED: FENTANYL PATCH WASTE TD PRN (22:29)
[2023-10-05] MEDS ORDERED: fentaNYL 50mcg/hr PATCH.TD72 TD SCH (22:30)
[2023-10-05] MEDS ORDERED: OSELTAMIVIR PHOSPHATE 75 MG CAPSULE ONE (23:28)
[2023-10-05] MEDS ORDERED: ALBUTEROL SO4 2.5/IPRATROPIUM 0.5 INH SOL 3 ML VIAL.NEB. NEB ONE (23:28)
[2023-10-05] MEDS: fentaNYL 50mcg/hr PATCH.TD72 TD SCH (23:37)
[2023-10-05] MEDS: OSELTAMIVIR PHOSPHATE 75 MG CAPSULE PO SCH (23:37)
[2023-10-05] MEDS: ALBUTEROL SO4 2.5/IPRATROPIUM 0.5 INH SOL 3 ML VIAL.NEB. NEB ONE (23:38)
[2023-10-06] MEDS ORDERED: ONDANSETRON 8 MG TABLET (FP) PO ONE (00:59)
[2023-10-06] MEDS: ONDANSETRON 8 MG TABLET (FP) PO PRN (01:03)
[2023-10-06] MEDS: LACTATED RINGERS SOLUTION 1,000 ML/1,000 ML INFUS.BAG IV SCH (02:12)
[2023-10-06] MEDS: IBUPROFEN 400 MG TABLET (FP) PO PRN (02:13)
[2023-10-06] MEDS ORDERED: methylPREDNISolone NA SUCC 40 MG/1 ML VIAL ONE ×3 (05:55→20:27)
[2023-10-06] MEDS ORDERED: guaiFENesin 200 MG/10 ML 10 ML UNIT-DOSE CUPS ONE ×2 (05:55→10:09)
[2023-10-06 06:08] LABS: BASO % 0.6 % (0-2.0); EOS % 0.9 % (0-4.5); HEMATOCRIT 31.7 % (32.4-45.2); HEMOGLOBIN 10.6 GM/dL (10.7-15.3); LYMPH % 10.8 % (8-40); MCHC 33.3 g/dl (32.0-36.0); MEAN PLT VOLUME 8.9 fl (7.5-11.1); MONO % 14.1 % (3.8-10.2); NEUT % 73.6 % (42.8-82.8); PLATELET COUNT 94 10^3/uL (134-434); RBC 3.91 M/mm3 (3.60-5.2); RDW 19.3 % (11.6-15.6); WHITE BLOOD COUNT 2.8 K/mm3 (4.0-10.0)
[2023-10-06] MEDS: guaiFENesin 200 MG/10 ML 10 ML UNIT-DOSE CUPS PO PRN (06:10)
[2023-10-06] MEDS: methylPREDNISolone NA SUCC 40 MG/1 ML VIAL IVPUSH SCH (06:10)
[2023-10-06 06:24] LABS: POTASSIUM 3.8 mmol/L (3.5-5.1)
[2023-10-06 06:27] LABS: ALBUMIN 3.4 g/dl (3.4-5.0); BLOOD UREA NITROGEN 13.6 mg/dL (7-18); CALCIUM 8.6 mg/dL (8.5-10.1)
[2023-10-06 06:30] LABS: CREATININE 0.8 mg/dL (0.55-1.3)
[2023-10-06 06:31] LABS: PHOSPHOROUS 4.6 mg/dL (2.5-4.9)
[2023-10-06 06:32] LABS: BILIRUBIN,TOTAL 0.9 mg/dL (0.2-1)
[2023-10-06] MEDS ORDERED: ALBUTEROL SO4 2.5/IPRATROPIUM 0.5 INH SOL 3 ML VIAL.NEB. NEB ONE ×4 (09:15→20:27)
[2023-10-06] MEDS ORDERED: OSELTAMIVIR PHOSPHATE 75 MG CAPSULE ONE ×2 (09:15→21:49)
[2023-10-06] MEDS ORDERED: TIOTROPIUM BROMIDE 2.5 MCG (SPIRIVA) RESPIMAT INHALER IH SCH (10:00)
[2023-10-06] MEDS ORDERED: ENOXAPARIN NA (PORCINE) 40 MG/0.4 ML DISP.SYRIN SQ SCH (10:00)
[2023-10-06] MEDS: ALBUTEROL SO4 2.5/IPRATROPIUM 0.5 INH SOL 3 ML VIAL.NEB. NEB SCH (10:08)
[2023-10-06] MEDS: fentaNYL 50mcg/hr PATCH.TD72 TD SCH (13:58)
[2023-10-07] MEDS ORDERED: methylPREDNISolone NA SUCC 40 MG/1 ML VIAL ONE ×2 (03:33→08:06)
[2023-10-07 06:58] LABS: BASO % 0.1 % (0-2.0); HEMATOCRIT 34.4 % (32.4-45.2); HEMOGLOBIN 11.4 GM/dL (10.7-15.3); LYMPH % 10.5 % (8-40); MCH 26.9 pg (25.7-33.7); MCHC 33.2 g/dl (32.0-36.0); MEAN CELL VOLUME 81.1 fl (80-96); MEAN PLT VOLUME 9.7 fl (7.5-11.1); MONO % 4.7 % (3.8-10.2); NEUT % 84.7 % (42.8-82.8); PLATELET COUNT 112 10^3/uL (134-434); RBC 4.24 M/mm3 (3.60-5.2); RDW 19.2 % (11.6-15.6); WHITE BLOOD COUNT 3.8 K/mm3 (4.0-10.0)
[2023-10-07 07:12] LABS: POTASSIUM 4.2 mmol/L (3.5-5.1)
[2023-10-07 07:15] LABS: CALCIUM 9.3 mg/dL (8.5-10.1)
[2023-10-07 07:16] LABS: ALBUMIN 3.8 g/dl (3.4-5.0); MAGNESIUM 2.3 mg/dL (1.8-2.4)
[2023-10-07 07:19] LABS: CREATININE 0.9 mg/dL (0.55-1.3)
[2023-10-07 07:20] LABS: BILIRUBIN,TOTAL 0.6 mg/dL (0.2-1)
[2023-10-07] MEDS ORDERED: ALBUTEROL SO4 2.5/IPRATROPIUM 0.5 INH SOL 3 ML VIAL.NEB. NEB ONE ×2 (08:05→11:32)
[2023-10-07] MEDS ORDERED: ENOXAPARIN NA (PORCINE) 40 MG/0.4 ML DISP.SYRIN SQ ONE (11:33)
[2023-10-07] MEDS ORDERED: OSELTAMIVIR PHOSPHATE 75 MG CAPSULE ONE (11:33)
[2023-10-07] MEDS: ENOXAPARIN NA (PORCINE) 40 MG/0.4 ML DISP.SYRIN SQ SCH (11:45)
[2023-10-07] MEDS: methylPREDNISolone NA SUCC 40 MG/1 ML VIAL IVPUSH SCH (18:51)
[2023-10-07] MEDS: D5-1/2NS+10 MEQ KCL - 10 MEQ/1,000 ML INFUS.BAG IV SCH (19:07)
[2023-10-07] MEDS: fentaNYL 50mcg/hr PATCH.TD72 TD SCH (22:41)
[2023-10-07] MEDS: FENTANYL PATCH WASTE TD PRN (22:52)
[2023-10-08 08:31] LABS: BASO % 0.1 % (0-2.0); HEMATOCRIT 31.2 % (32.4-45.2); HEMOGLOBIN 10.4 GM/dL (10.7-15.3); LYMPH % 7.5 % (8-40); MCH 26.9 pg (25.7-33.7); MCHC 33.3 g/dl (32.0-36.0); MEAN CELL VOLUME 80.8 fl (80-96); MEAN PLT VOLUME 9.8 fl (7.5-11.1); NEUT % 87.4 % (42.8-82.8); PLATELET COUNT 81 10^3/uL (134-434); RBC 3.86 M/mm3 (3.60-5.2); RDW 18.9 % (11.6-15.6); WHITE BLOOD COUNT 4.6 K/mm3 (4.0-10.0)
[2023-10-08 08:44] LABS: POTASSIUM 4.1 mmol/L (3.5-5.1)
[2023-10-08 08:53] LABS: CALCIUM 8.8 mg/dL (8.5-10.1)
[2023-10-08 08:54] LABS: ALBUMIN 3.3 g/dl (3.4-5.0); BLOOD UREA NITROGEN 22.6 mg/dL (7-18); MAGNESIUM 2.1 mg/dL (1.8-2.4)
[2023-10-08 08:57] LABS: BILIRUBIN,TOTAL 0.4 mg/dL (0.2-1); CREATININE 0.7 mg/dL (0.55-1.3); TOT PROT 6.2 g/dl (6.4-8.2)
[2023-10-08] MEDS ORDERED: ALBUTEROL SO4 0.083% IH SOL 2.5 MG/3 ML VIAL.NEB. NEB PRN (10:46)
[2023-10-08] MEDS ORDERED: INSULIN (NOVOLOG) ASPART 100 UNITS/ML 10ML VIAL ONE ×2 (11:17→21:05)
[2023-10-08] MEDS: INSULIN ASPART SLIDING SCALE (NOVOLOG) 1 VIAL SQ SCH (11:28)
[2023-10-08] MEDS: NYSTATIN 500,000 UNITS/5 ML SUSPENSION PO SCH (12:06)
[2023-10-08] MEDS: [UNRECOGNIZED DRUG - OTHER] PO SCH (21:43)
[2023-10-08] MEDS: HYDROmorphone HCL 2 MG TABLET PO PRN (23:18)
[2023-10-09 08:01] LABS: BASO % 0.1 % (0-2.0); HEMATOCRIT 31.8 % (32.4-45.2); HEMOGLOBIN 10.6 GM/dL (10.7-15.3); LYMPH % 8.1 % (8-40); MCH 27.5 pg (25.7-33.7); MCHC 33.4 g/dl (32.0-36.0); MEAN CELL VOLUME 82.2 fl (80-96); MEAN PLT VOLUME 9.5 fl (7.5-11.1); MONO % 4.2 % (3.8-10.2); NEUT % 87.6 % (42.8-82.8); PLATELET COUNT 84 10^3/uL (134-434); RBC 3.87 M/mm3 (3.60-5.2); RDW 19.5 % (11.6-15.6); WHITE BLOOD COUNT 5.1 K/mm3 (4.0-10.0)
[2023-10-09 08:25] LABS: MAGNESIUM 2.4 mg/dL (1.8-2.4)
[2023-10-09 08:26] LABS: CREATININE 0.7 mg/dL (0.55-1.3)
[2023-10-09 08:28] LABS: BILIRUBIN,TOTAL 0.4 mg/dL (0.2-1); TOT PROT 6.4 g/dl (6.4-8.2)
[2023-10-09 10:54] LABS: POTASSIUM 4.7 mmol/L (3.5-5.1)
[2023-10-09 11:04] LABS: ALBUMIN 3.6 g/dl (3.4-5.0); BLOOD UREA NITROGEN 18.2 mg/dL (7-18); CALCIUM 9.2 mg/dL (8.5-10.1)
[2023-10-09] MEDS ORDERED: INSULIN (NOVOLOG) ASPART 100 UNITS/ML 10ML VIAL ONE ×2 (11:31→17:02)
[2023-10-09] MEDS: methylPREDNISolone NA SUCC 40 MG/1 ML VIAL IVPUSH SCH (21:32)
[2023-10-10] MEDS ORDERED: INSULIN (NOVOLOG) ASPART 100 UNITS/ML 10ML VIAL ONE ×3 (10:57→21:21)
[2023-10-10 12:45] LABS: EPI CELLS 0 /uL (0-25.1); HYALINE CASTS 2 /uL (0-3.1); PH,URINE 6.5 (5.0-8.0); URINE APPEARANCE CLOUDY; URINE BACTERIA >9,000 /uL (0-1359); URINE BILIRUBIN NEGATIVE (NEGATIVE); URINE COLOR YELLOW; URINE GLUCOSE (UA) NEGATIVE (NEGATIVE); URINE KETONE NEGATIVE (NEGATIVE); URINE LEUK ESTERASE TRACE (NEGATIVE); URINE NITRITE POSITIVE (NEGATIVE); URINE PROTEIN NEGATIVE (NEGATIVE); URINE RBC 2 /uL (0-23.9); URINE UROBILINOGEN 0.2 mg/dL (0.2-1.0); URINE WBC 192 /uL (0-25.8)
[2023-10-10 14:34] VITALS: RESP 18
[2023-10-10] MEDS: CEPHALEXIN MONOHYDRATE 500 MG CAPSULE (UD) PO SCH (17:37)
[2023-10-10] MEDS: LACTOBACILLUS ACIDOPHILUS 1 TABLET PO SCH (21:31)
[2023-10-11] MEDS: ALPRAZolam 1 MG TABLET PO PRN (00:28)
[2023-10-11 06:07] VITALS: BP 159/77; PULSE 58; TEMP 98.4
[2023-10-11] MEDS ORDERED: INSULIN (NOVOLOG) ASPART 100 UNITS/ML 10ML VIAL ONE ×2 (06:16→11:11)
[2023-10-11] MEDS: methylPREDNISolone NA SUCC 40 MG/1 ML VIAL IVPUSH SCH (09:26)
[2023-10-12] MEDS ORDERED: predniSONE 20 MG TABLET (UD) PO SCH (10:00)
== END 2023-10-11 11:30 | disposition home or self-care (01) | DRG 194 ==
LOC: JER 17:05 → JERBED 22:04 → J8W 10-07 14:40 → OBSVTOIN 10-09 12:26
PROVIDERS: ADMIT Internal Medicine; ATTEND Nurse Practitioner Acute Care
DX: J10.1 Influenza due to other identified influenza virus with other respiratory manifestations (principal); C79.51 Secondary malignant neoplasm of bone; J45.901 Unspecified asthma with (acute) exacerbation; D61.818 Other pancytopenia; N39.0 Urinary tract infection, site not specified; D72.819 Decreased white blood cell count, unspecified; C50.919 Malignant neoplasm of unspecified site of unspecified female breast; F41.0 Panic disorder [episodic paroxysmal anxiety]; R00.2 Palpitations; B96.4 Proteus (mirabilis) (morganii) as the cause of diseases classified elsewhere; Z85.43 Personal history of malignant neoplasm of ovary
CPT/HCPCS: 0241U-QW; 36415; 71045-TC-FY; 80053; 81003; 82803; 82962; 83605; 83735; 84100; 84484; 85025; 85610; 85730; 86850; 86900; 86901; 87040; 87086; 93005; 93010; 94640; 99285-25; G0378

== ENCOUNTER 2023-10-19 01:18 | Observation (INO) | payer OTHER ==
[2023-10-19 03:12] LABS: BASO % 0.8 % (0-2.0); EOS % 0.1 % (0-4.5); HEMATOCRIT 33.8 % (32.4-45.2); HEMOGLOBIN 11.5 GM/dL (10.7-15.3); LYMPH % 15.2 % (8-40); MCH 27.7 pg (25.7-33.7); MEAN CELL VOLUME 81.5 fl (80-96); MEAN PLT VOLUME 8.6 fl (7.5-11.1); MONO % 8.5 % (3.8-10.2); NEUT % 75.4 % (42.8-82.8); PLATELET COUNT 137 10^3/uL (134-434); RBC 4.15 M/mm3 (3.60-5.2); RDW 19.8 % (11.6-15.6); WHITE BLOOD COUNT 10.3 K/mm3 (4.0-10.0)
[2023-10-19 03:32] LABS: POTASSIUM 3.7 mmol/L (3.5-5.1)
[2023-10-19 03:34] LABS: CALCIUM 8.8 mg/dL (8.5-10.1)
[2023-10-19 03:36] LABS: BLOOD UREA NITROGEN 23.3 mg/dL (7-18)
[2023-10-19 03:38] LABS: CREATININE 0.8 mg/dL (0.55-1.3)
[2023-10-19 03:39] LABS: BILIRUBIN,TOTAL 0.5 mg/dL (0.2-1)
[2023-10-19 04:04] LABS: ALBUMIN 2.8 g/dl (3.4-5.0)
[2023-10-19] MEDS ORDERED: HYDROmorphone HCL 2 MG TABLET ONE (04:29)
[2023-10-19] MEDS: HYDROmorphone HCL 2 MG TABLET PO ONE (04:30)
[2023-10-19] MEDS ORDERED: POTASSIUM CHLORIDE ORAL LIQUID 20 MEQ/15 ML ONE (04:43)
[2023-10-19] MEDS ORDERED: MAGNESIUM SULFATE IN WATER 2 GM/50 ML IVPB IVPB ONE (04:43)
[2023-10-19] MEDS: POTASSIUM CHLORIDE ORAL LIQUID 20 MEQ/15 ML PO ONE (04:48)
[2023-10-19] MEDS: MAGNESIUM SULF 50% (8.12 MEQ/2 ML-1 GM VIAL) IVPB ONE (04:48)
[2023-10-19] MEDS ORDERED: ONDANSETRON 4 MG/2 ML VIAL ONE (04:53)
[2023-10-19] MEDS: ONDANSETRON 4 MG/2 ML VIAL IVPUSH ONE (04:59)
[2023-10-19 05:31] LABS: MAGNESIUM 2.2 mg/dL (1.8-2.4)
[2023-10-19 07:06] LABS: POTASSIUM 4.6 mmol/L (3.5-5.1)
[2023-10-19] MEDS: METOPROLOL TARTRATE 25 MG TABLET (FP) PO SCH (07:15)
[2023-10-19 07:16] LABS: ALBUMIN 2.9 g/dl (3.4-5.0); BLOOD UREA NITROGEN 21.7 mg/dL (7-18); MAGNESIUM 2.7 mg/dL (1.8-2.4)
[2023-10-19 07:17] LABS: PHOSPHOROUS 3.4 mg/dL (2.5-4.9)
[2023-10-19 07:18] LABS: CREATININE 0.7 mg/dL (0.55-1.3)
[2023-10-19 07:19] LABS: BILIRUBIN,TOTAL 0.6 mg/dL (0.2-1); TOT PROT 6.1 g/dl (6.4-8.2)
[2023-10-19 07:47] LABS: BASO % 0.3 % (0-2.0); EOS % 0.2 % (0-4.5); HEMATOCRIT 34.8 % (32.4-45.2); HEMOGLOBIN 11.5 GM/dL (10.7-15.3); LYMPH % 16.3 % (8-40); MCH 27.4 pg (25.7-33.7); MEAN CELL VOLUME 82.9 fl (80-96); MEAN PLT VOLUME 8.9 fl (7.5-11.1); MONO % 7.6 % (3.8-10.2); NEUT % 75.6 % (42.8-82.8); PLATELET COUNT 142 10^3/uL (134-434); RBC 4.19 M/mm3 (3.60-5.2); RDW 19.9 % (11.6-15.6); WHITE BLOOD COUNT 9.1 K/mm3 (4.0-10.0)
[2023-10-19] MEDS ORDERED: FENTANYL PATCH WASTE TD PRN (08:04)
[2023-10-19] MEDS ORDERED: guaiFENesin 200 MG/10 ML 10 ML UNIT-DOSE CUPS PO PRN (08:04)
[2023-10-19] MEDS ORDERED: IBUPROFEN 400 MG TABLET (FP) PO PRN (08:04)
[2023-10-19] MEDS ORDERED: ALPRAZolam 0.25 MG TABLET PO PRN (08:04)
[2023-10-19] MEDS: BUDESONIDE 0.25 MG/2ML INH SUSP VIAL NEB SCH (08:46)
[2023-10-19] MEDS ORDERED: predniSONE 20 MG TABLET (UD) ONE (08:59)
[2023-10-19] MEDS ORDERED: NYSTATIN 500,000 UNITS/5 ML SUSPENSION ONE ×2 (09:01→14:59)
[2023-10-19] MEDS ORDERED: ENOXAPARIN NA (PORCINE) 40 MG/0.4 ML DISP.SYRIN SQ ONE (09:01)
[2023-10-19] MEDS: predniSONE 20 MG TABLET (UD) PO SCH (09:06)
[2023-10-19] MEDS: ENOXAPARIN NA (PORCINE) 40 MG/0.4 ML DISP.SYRIN SQ SCH (09:06)
[2023-10-19] MEDS: NYSTATIN 500,000 UNITS/5 ML SUSPENSION PO SCH (09:06)
[2023-10-19] MEDS: TIOTROPIUM BROMIDE 2.5 MCG (SPIRIVA) RESPIMAT INHALER IH SCH (10:12)
[2023-10-19] MEDS ORDERED: ALBUTEROL SO4 2.5/IPRATROPIUM 0.5 INH SOL 3 ML VIAL.NEB. NEB ONE ×2 (12:04→15:36)
[2023-10-19] MEDS: ALBUTEROL SO4 2.5/IPRATROPIUM 0.5 INH SOL 3 ML VIAL.NEB. NEB SCH (12:07)
[2023-10-19] MEDS ORDERED: metoPROLOL SUCCINATE 25 MG TAB.SR.24H (FP) PO ONE (15:36)
[2023-10-19] MEDS: metoPROLOL SUCCINATE 25 MG TAB.SR.24H (FP) PO SCH (18:34)
[2023-10-19 18:52] VITALS: BMI 29.0
[2023-10-19] MEDS: [UNRECOGNIZED DRUG - OTHER] PO SCH (20:55)
[2023-10-20] MEDS: INSULIN (NOVOLOG) ASPART 100 UNITS/ML 10ML VIAL SQ ONE (03:40)
[2023-10-20] MEDS: fentaNYL 50mcg/hr PATCH.TD72 TD SCH ×2 (09:25→21:31)
[2023-10-20] MEDS: metoPROLOL SUCCINATE 25 MG TAB.SR.24H (FP) PO SCH (09:27)
[2023-10-20] MEDS: INSULIN ASPART SLIDING SCALE (NOVOLOG) 1 VIAL SQ SCH (12:01)
[2023-10-20] MEDS ORDERED: LEVALBUTEROL HCL 0.31 MG/3 ML VIAL.NEB IH PRN (15:09)
[2023-10-20] MEDS: INSULIN (LEVEMIR) 100 UNITS/ML UNITS SQ SCH (21:48)
[2023-10-21 08:27] LABS: BLOOD UREA NITROGEN 18.6 mg/dL (7-18); CALCIUM 9.5 mg/dL (8.5-10.1)
[2023-10-21 08:28] LABS: ALBUMIN 2.9 g/dl (3.4-5.0); MAGNESIUM 2.4 mg/dL (1.8-2.4)
[2023-10-21 08:31] LABS: CREATININE 0.7 mg/dL (0.55-1.3)
[2023-10-21 08:32] LABS: BILIRUBIN,TOTAL 0.7 mg/dL (0.2-1); TOT PROT 6.2 g/dl (6.4-8.2)
[2023-10-21 08:51] LABS: BASO % 0.2 % (0-2.0); EOS % 0.1 % (0-4.5); HEMATOCRIT 34.2 % (32.4-45.2); HEMOGLOBIN 11.3 GM/dL (10.7-15.3); LYMPH % 17.8 % (8-40); MCH 27.3 pg (25.7-33.7); MCHC 33.1 g/dl (32.0-36.0); MEAN CELL VOLUME 82.5 fl (80-96); MEAN PLT VOLUME 9.3 fl (7.5-11.1); MONO % 7.4 % (3.8-10.2); NEUT % 74.5 % (42.8-82.8); PLATELET COUNT 132 10^3/uL (134-434); RBC 4.14 M/mm3 (3.60-5.2); RDW 19.9 % (11.6-15.6); WHITE BLOOD COUNT 6.2 K/mm3 (4.0-10.0)
[2023-10-21] MEDS ORDERED: ONDANSETRON 4 MG TABLET PO ONE (09:25)
[2023-10-21] MEDS: ONDANSETRON 8 MG TABLET (FP) PO PRN (09:36)
[2023-10-21] MEDS: FLUCONAZOLE 100 MG TABLET (UD) PO ONE (13:13)
[2023-10-21] MEDS: HYDROmorphone HCL 2 MG TABLET PO PRN (15:17)
[2023-10-21 18:55] VITALS: RESP 18
[2023-10-22 06:46] VITALS: TEMP 98.2
[2023-10-22 07:10] LABS: BASO % 0.1 % (0-2.0); EOS % 0.2 % (0-4.5); HEMATOCRIT 32.9 % (32.4-45.2); LYMPH % 22.6 % (8-40); MCH 27.5 pg (25.7-33.7); MCHC 33.5 g/dl (32.0-36.0); MEAN PLT VOLUME 8.7 fl (7.5-11.1); MONO % 7.9 % (3.8-10.2); NEUT % 69.2 % (42.8-82.8); PLATELET COUNT 129 10^3/uL (134-434); RBC 4.02 M/mm3 (3.60-5.2); RDW 19.5 % (11.6-15.6); WHITE BLOOD COUNT 5.8 K/mm3 (4.0-10.0)
[2023-10-22 07:33] LABS: POTASSIUM 4.1 mmol/L (3.5-5.1)
[2023-10-22 07:40] LABS: CALCIUM 9.6 mg/dL (8.5-10.1)
[2023-10-22 07:41] LABS: ALBUMIN 2.9 g/dl (3.4-5.0); BLOOD UREA NITROGEN 18.5 mg/dL (7-18); MAGNESIUM 2.1 mg/dL (1.8-2.4)
[2023-10-22 07:44] LABS: CREATININE 0.8 mg/dL (0.55-1.3)
[2023-10-22 07:46] LABS: BILIRUBIN,TOTAL 0.8 mg/dL (0.2-1); TOT PROT 6.1 g/dl (6.4-8.2)
[2023-10-22] MEDS: predniSONE 20 MG TABLET (UD) PO SCH (09:22)
[2023-10-22 15:43] VITALS: BP 131/69; PULSE 56
== END 2023-10-22 16:05 | disposition home or self-care (01) ==
LOC: JER 01:18 → JERBED 04:43 → J4W 18:23
PROVIDERS: ADMIT Internal Medicine; ATTEND Internal Medicine
PROC: 3E0F7GC Introduction of Other Therapeutic Substance into Respiratory Tract, Via Natural or Artificial Opening (ICD-10-PCS; principal; 2023-10-19)
PROC: 3E023GC Introduction of Other Therapeutic Substance into Muscle, Percutaneous Approach (ICD-10-PCS; 2023-10-19)
PROC: 3E013VG Introduction of Insulin into Subcutaneous Tissue, Percutaneous Approach (ICD-10-PCS; 2023-10-19)
PROC: 3E033GC Introduction of Other Therapeutic Substance into Peripheral Vein, Percutaneous Approach (ICD-10-PCS; 2023-10-19)
DX: C50.919 Malignant neoplasm of unspecified site of unspecified female breast (principal); C79.51 Secondary malignant neoplasm of bone; Z85.43 Personal history of malignant neoplasm of ovary; J45.909 Unspecified asthma, uncomplicated; Z90.79 Acquired absence of other genital organ(s); Z88.8 Allergy status to other drugs, medicaments and biological substances; Z91.013 Allergy to seafood; Z88.5 Allergy status to narcotic agent
CPT/HCPCS: 0241U-QW; 36415; 71045-TC-FY; 80053; 82962; 83036; 83735; 84100; 84443; 84484; 85025; 93005; 93010; 93306-TC; 94640; 99285-25; G0378

== ENCOUNTER 2024-02-05 08:23 | Inpatient (IN) | payer OTHER ==
[2024-02-05 08:50] VITALS: BMI 28.3
[2024-02-05] MEDS ORDERED: METOCLOPRAMIDE HCL INJECTION 10 MG/2 ML VIAL ONE (09:40)
[2024-02-05] MEDS ORDERED: HYDROmorphone HCL CARPU-JECT 2 MG/1 ML DISP.SYRIN ONE ×2 (09:40→12:51)
[2024-02-05] MEDS: METOCLOPRAMIDE HCL INJECTION 10 MG/2 ML VIAL IVPUSH ONE (10:30)
[2024-02-05] MEDS: SODIUM CHLORIDE 500 ML IV STA (10:40)
[2024-02-05] MEDS: HYDROmorphone HCl 2 MG/ML VIAL IVPUSH ONE ×2 (10:45→12:58)
[2024-02-05] MEDS ORDERED: metoPROLOL SUCCINATE 25 MG TAB.SR.24H (FP) PO ONE (10:49)
[2024-02-05 10:53] LABS: BASO % 0.5 % (0-2.0); EOS % 0.3 % (0-4.5); HEMATOCRIT 32.4 % (32.4-45.2); HEMOGLOBIN 10.6 GM/dL (10.7-15.3); MCH 28.7 pg (25.7-33.7); MCHC 32.8 g/dl (32.0-36.0); MEAN CELL VOLUME 87.6 fl (80-96); MEAN PLT VOLUME 8.6 fl (7.5-11.1); MONO % 14.1 % (3.8-10.2); NEUT % 66.1 % (42.8-82.8); PLATELET COUNT 142 10^3/uL (134-434); RBC 3.69 M/mm3 (3.60-5.2); RDW 21.3 % (11.6-15.6); WHITE BLOOD COUNT 4.8 K/mm3 (4.0-10.0)
[2024-02-05] MEDS: metoPROLOL SUCCINATE 25 MG TAB.SR.24H (FP) PO ONE (11:00)
[2024-02-05 11:05] LABS: PH,URINE 6.5 (5.0-8.0); POTASSIUM 4.6 mmol/L (3.5-5.1); URINE APPEARANCE CLEAR; URINE BILIRUBIN NEGATIVE (NEGATIVE); URINE COLOR YELLOW; URINE GLUCOSE (UA) NEGATIVE (NEGATIVE); URINE KETONE NEGATIVE (NEGATIVE); URINE LEUK ESTERASE NEGATIVE (NEGATIVE); URINE NITRITE NEGATIVE (NEGATIVE); URINE PROTEIN NEGATIVE (NEGATIVE); URINE UROBILINOGEN 0.2 mg/dL (0.2-1.0)
[2024-02-05 11:07] LABS: ALBUMIN 3.3 g/dl (3.4-5.0); MAGNESIUM 2.1 mg/dL (1.8-2.4)
[2024-02-05 11:08] LABS: BLOOD UREA NITROGEN 17.6 mg/dL (7-18)
[2024-02-05 11:11] LABS: CREATININE 0.7 mg/dL (0.55-1.3)
[2024-02-05 11:12] LABS: BILIRUBIN,TOTAL 0.6 mg/dL (0.2-1); TOT PROT 6.6 g/dl (6.4-8.2)
[2024-02-05 11:32] LABS: ERYTHROCYTE SEDIMENTATION RATE 104 mm/hr (0-30)
[2024-02-05 12:01] LABS: ANISOCYTOSIS 1+; MACROCYTOSIS 0
[2024-02-05] MEDS ORDERED: ONDANSETRON 8 MG TABLET (FP) PO PRN (15:13)
[2024-02-05] MEDS: HYDROmorphone HCL 2 MG TABLET PO ONE (15:48)
[2024-02-05] MEDS ORDERED: HYDROmorphone HCL 2 MG TABLET ONE (15:50)
[2024-02-05] MEDS ORDERED: ALPRAZolam 1 MG TABLET ONE (17:30)
[2024-02-05] MEDS: ALPRAZolam 0.25 MG TABLET PO PRN (17:35)
[2024-02-05] MEDS: HYDROmorphone HCL 2 MG TABLET PO PRN (20:10)
[2024-02-05] MEDS: IBUPROFEN 600 MG TABLET (FP) PO PRN (20:11)
[2024-02-05] MEDS: fentaNYL 75mcg/hr PATCH.TD72 TD SCH (22:14)
[2024-02-05] MEDS: HEPARIN NA (PORCINE) 5,000 UNITS/ML 1ML VIAL SQ SCH (22:24)
[2024-02-06 07:04] LABS: BASO % 0.7 % (0-2.0); EOS % 0.6 % (0-4.5); HEMATOCRIT 31.1 % (32.4-45.2); HEMOGLOBIN 10.4 GM/dL (10.7-15.3); LYMPH % 22.2 % (8-40); MCH 29.3 pg (25.7-33.7); MCHC 33.3 g/dl (32.0-36.0); MEAN PLT VOLUME 9.1 fl (7.5-11.1); MONO % 17.9 % (3.8-10.2); NEUT % 58.6 % (42.8-82.8); PLATELET COUNT 138 10^3/uL (134-434); RBC 3.53 M/mm3 (3.60-5.2); RDW 21.2 % (11.6-15.6); WHITE BLOOD COUNT 3.8 K/mm3 (4.0-10.0)
[2024-02-06 07:19] LABS: POTASSIUM 4.2 mmol/L (3.5-5.1)
[2024-02-06 07:21] LABS: BLOOD UREA NITROGEN 15.8 mg/dL (7-18)
[2024-02-06 07:23] LABS: CALCIUM 9.4 mg/dL (8.5-10.1)
[2024-02-06 07:25] LABS: CREATININE 0.6 mg/dL (0.55-1.3)
[2024-02-06] MEDS: HYDROmorphone HCL 2 MG TABLET PO PRN (08:50)
[2024-02-06] MEDS: metoPROLOL SUCCINATE 25 MG TAB.SR.24H (FP) PO SCH (09:21)
[2024-02-06] MEDS: POLYETHYLENE GLYCOL (HEALTHYLAX) 3350 17 GM PACKET PO SCH (09:22)
[2024-02-06] MEDS ORDERED: metoPROLOL SUCCINATE 25 MG TAB.SR.24H (FP) PO SCH (10:00)
[2024-02-06] MEDS ORDERED: HYDROmorphone HCl 2 MG/ML VIAL IVPUSH ONE (12:30)
[2024-02-07] MEDS: metoPROLOL SUCCINATE 25 MG TAB.SR.24H (FP) PO ONE (11:40)
[2024-02-07] MEDS: SODIUM CHLORIDE 1,000 ML IV SCH (13:11)
[2024-02-07] MEDS ORDERED: PROCHLORPERAZINE MALEATE 5 MG TABLET PO PRN (18:08)
[2024-02-07] MEDS: fentaNYL 75mcg/hr PATCH.TD72 TD SCH (23:07)
[2024-02-08] MEDS: IBUPROFEN 600 MG TABLET (FP) PO PRN (01:44)
[2024-02-08 08:23] LABS: BASO % 0.4 % (0-2.0); EOS % 0.6 % (0-4.5); HEMATOCRIT 28.1 % (32.4-45.2); HEMOGLOBIN 9.2 GM/dL (10.7-15.3); LYMPH % 18.5 % (8-40); MCH 28.7 pg (25.7-33.7); MCHC 32.9 g/dl (32.0-36.0); MEAN CELL VOLUME 87.1 fl (80-96); MEAN PLT VOLUME 9.5 fl (7.5-11.1); NEUT % 62.5 % (42.8-82.8); PLATELET COUNT 146 10^3/uL (134-434); RBC 3.23 M/mm3 (3.60-5.2); RDW 20.9 % (11.6-15.6); WHITE BLOOD COUNT 3.1 K/mm3 (4.0-10.0)
[2024-02-08 08:40] LABS: POTASSIUM 4.2 mmol/L (3.5-5.1)
[2024-02-08 08:43] LABS: ALBUMIN 2.7 g/dl (3.4-5.0); BLOOD UREA NITROGEN 18.2 mg/dL (7-18); CALCIUM 9.1 mg/dL (8.5-10.1); MAGNESIUM 1.8 mg/dL (1.8-2.4)
[2024-02-08 08:46] LABS: CREATININE 0.6 mg/dL (0.55-1.3); PHOSPHOROUS 4.7 mg/dL (2.5-4.9)
[2024-02-08 08:48] LABS: BILIRUBIN,TOTAL 0.6 mg/dL (0.2-1); TOT PROT 5.7 g/dl (6.4-8.2)
[2024-02-08] MEDS: metoPROLOL SUCCINATE 25 MG TAB.SR.24H (FP) PO SCH (09:53)
[2024-02-08] MEDS: ENOXAPARIN NA (PORCINE) 40 MG/0.4 ML DISP.SYRIN SQ SCH (09:53)
[2024-02-08] MEDS: DEXAMETHASONE 4 MG TABLET (FP) PO ONE (12:46)
[2024-02-08] MEDS ORDERED: DEXAMETHASONE SOD PHOSPHATE 10 MG/1 ML VIAL IVPUSH SCH (15:00)
[2024-02-08] MEDS: DEXAMETHASONE SOD PHOSPHATE 10 MG/1 ML VIAL IVPUSH SCH (18:52)
[2024-02-09 08:09] LABS: BASO % 0.5 % (0-2.0); HEMATOCRIT 33.4 % (32.4-45.2); HEMOGLOBIN 10.6 GM/dL (10.7-15.3); LYMPH % 17.6 % (8-40); MCH 28.5 pg (25.7-33.7); MCHC 31.6 g/dl (32.0-36.0); MEAN CELL VOLUME 90.1 fl (80-96); MEAN PLT VOLUME 9.5 fl (7.5-11.1); MONO % 4.5 % (3.8-10.2); NEUT % 77.4 % (42.8-82.8); PLATELET COUNT 244 10^3/uL (134-434); RDW 20.9 % (11.6-15.6); WHITE BLOOD COUNT 3.8 K/mm3 (4.0-10.0)
[2024-02-09 08:51] LABS: ALBUMIN 3.2 g/dl (3.4-5.0); BILIRUBIN,TOTAL 0.6 mg/dL (0.2-1); CALCIUM 9.4 mg/dL (8.5-10.1); CREATININE 0.7 mg/dL (0.55-1.3); POTASSIUM 4.1 mmol/L (3.5-5.1); TOT PROT 6.9 g/dl (6.4-8.2)
[2024-02-09 09:25] LABS: ANISOCYTOSIS 1+; MACROCYTOSIS 0; OVALOCYTE 1+
[2024-02-09] MEDS: DEXAMETHASONE 4 MG TABLET (FP) PO SCH (10:15)
[2024-02-09] MEDS: DEXAMETHASONE 0.5 MG TABLET PO SCH (10:46)
[2024-02-09] MEDS ORDERED: DEXAMETHASONE 4 MG TABLET (FP) PO SCH (14:00)
[2024-02-09] MEDS: SENNOSIDES 8.8 MG/5 ML SYRUP PO SCH (21:05)
[2024-02-10 03:31] VITALS: RESP 18
[2024-02-10 10:25] LABS: HEMATOCRIT 27.8 % (32.4-45.2); HEMOGLOBIN 9.2 GM/dL (10.7-15.3); MCH 28.7 pg (25.7-33.7); MCHC 33.1 g/dl (32.0-36.0); MEAN CELL VOLUME 86.8 fl (80-96); MEAN PLT VOLUME 8.6 fl (7.5-11.1); PLATELET COUNT 192 10^3/uL (134-434); RBC 3.21 M/mm3 (3.60-5.2); RDW 20.4 % (11.6-15.6); WHITE BLOOD COUNT 4.5 K/mm3 (4.0-10.0)
[2024-02-10 10:41] LABS: POTASSIUM 4.9 mmol/L (3.5-5.1)
[2024-02-10 10:43] LABS: CALCIUM 9.2 mg/dL (8.5-10.1)
[2024-02-10 10:44] LABS: MAGNESIUM 2.2 mg/dL (1.8-2.4)
[2024-02-10 10:46] LABS: CREATININE 0.6 mg/dL (0.55-1.3); PHOSPHOROUS 3.7 mg/dL (2.5-4.9)
[2024-02-10 10:48] LABS: BILIRUBIN,TOTAL 0.4 mg/dL (0.2-1); TOT PROT 6.5 g/dl (6.4-8.2)
[2024-02-10 15:05] VITALS: BP 138/63; PULSE 61; TEMP 98.1
[2024-02-10 15:08] LABS: BETA-2-MICROGLOBULIN 2.2 mg/L (0.6-2.4)
== END 2024-02-10 19:15 | disposition home or self-care (01) | DRG 309 ==
LOC: JER 08:23 → JERBED 14:54 → INTOOBSV 14:54 → UNDOADMOB 14:54 → JERBED 15:14 → OBSVTOIN 15:14 → J4W 18:25
PROVIDERS: ADMIT Internal Medicine; ATTEND Internal Medicine
DX: I49.3 Ventricular premature depolarization (principal); C79.51 Secondary malignant neoplasm of bone; G95.20 Unspecified cord compression; C50.919 Malignant neoplasm of unspecified site of unspecified female breast; D64.9 Anemia, unspecified; R00.2 Palpitations; R07.9 Chest pain, unspecified; E11.9 Type 2 diabetes mellitus without complications; R50.9 Fever, unspecified; K59.00 Constipation, unspecified; K21.9 Gastro-esophageal reflux disease without esophagitis
CPT/HCPCS: 0241U-QW; 36415; 70491-TC; 71045-TC-FY; 71260-TC; 72156-TC; 73030-TC-LT-FY; 73502-TC-RT-FY; 74177-TC; 80048; 80053; 81003; 82024; 82232; 82533; 82728; 82747; 83615; 83735; 84100; 84443; 84484; 85014; 85025; 85027; 85045; 85651; 86140; 86850; 86900; 86901; 87040; 87086; 93005; 93010; 93970-TC; 99285-25; J1100; J1644; Q9967

== ENCOUNTER 2024-07-31 08:22 | Inpatient (IN) | payer OTHER ==
[2024-07-31] MEDS ORDERED: ONDANSETRON 4 MG/2 ML VIAL ONE ×2 (09:48→22:51)
[2024-07-31] MEDS ORDERED: HYDROmorphone HCL CARPU-JECT 2 MG/1 ML DISP.SYRIN ONE ×2 (09:48→13:28)
[2024-07-31 10:20] LABS: BASO % 0.3 % (0-2.0); EOS % 0.5 % (0-4.5); HEMATOCRIT 28.3 % (32.4-45.2); HEMOGLOBIN 9.2 GM/dL (10.7-15.3); LYMPH % 10.2 % (8-40); MCH 28.1 pg (25.7-33.7); MCHC 32.5 g/dl (32.0-36.0); MEAN CELL VOLUME 86.4 fl (80-96); MEAN PLT VOLUME 8.4 fl (7.5-11.1); MONO % 8.2 % (3.8-10.2); NEUT % 80.8 % (42.8-82.8); PLATELET COUNT 154 10^3/uL (134-434); RBC 3.28 M/mm3 (3.60-5.2); RDW 22.2 % (11.6-15.6); WHITE BLOOD COUNT 4.8 K/mm3 (4.0-10.0)
[2024-07-31] MEDS: SODIUM CHLORIDE 0.9% 500 ML INFUS.BAG IV ONE (10:20)
[2024-07-31] MEDS: ONDANSETRON 4 MG/2 ML VIAL IVPUSH ONE ×2 (10:20→14:52)
[2024-07-31] MEDS: HYDROmorphone HCl 2 MG/ML VIAL IVPUSH ONE ×3 (10:21→13:33)
[2024-07-31 10:27] LABS: INR 1.22 (0.83-1.09); PROTHROMBIN TIME (PATIENT) 13.7 SEC (9.7-13.0)
[2024-07-31 10:30] LABS: ACTIVATED PTT 32.2 SECONDS (25.2-36.5)
[2024-07-31] MEDS ORDERED: METOCLOPRAMIDE HCL INJECTION 10 MG/2 ML VIAL ONE (10:42)
[2024-07-31 10:44] LABS: POTASSIUM 4.1 mmol/L (3.5-5.1)
[2024-07-31 10:46] LABS: CALCIUM 9.5 mg/dL (8.5-10.1)
[2024-07-31 10:47] LABS: ALBUMIN 3.4 g/dl (3.4-5.0); BLOOD UREA NITROGEN 12.6 mg/dL (7-18)
[2024-07-31 10:50] LABS: CREATININE 0.7 mg/dL (0.55-1.3)
[2024-07-31 10:52] LABS: TOT PROT 6.2 g/dl (6.4-8.2)
[2024-07-31] MEDS: METOCLOPRAMIDE HCL INJECTION 10 MG/2 ML VIAL IVPB ONE (11:15)
[2024-07-31 11:25] LABS: ANISOCYTOSIS 2+; MACROCYTOSIS 1+
[2024-07-31] MEDS: LACTATED RINGERS SOLUTION 1000 ML INFUS.BAG IV ONE (11:26)
[2024-07-31 11:53] LABS: PH,URINE 6.5 (5.0-8.0); URINE APPEARANCE CLEAR; URINE BILIRUBIN NEGATIVE (NEGATIVE); URINE COLOR YELLOW; URINE GLUCOSE (UA) NEGATIVE (NEGATIVE); URINE KETONE NEGATIVE (NEGATIVE); URINE LEUK ESTERASE NEGATIVE (NEGATIVE); URINE NITRITE NEGATIVE (NEGATIVE); URINE PROTEIN NEGATIVE (NEGATIVE); URINE UROBILINOGEN 0.2 mg/dL (0.2-1.0)
[2024-07-31] MEDS: HALOPERIDOL LACTATE 5 MG/ML IM ONE (14:52)
[2024-07-31] MEDS ORDERED: HALOPERIDOL LACTATE 5 MG/ML ONE (15:10)
[2024-07-31] MEDS: HALOPERIDOL LACTATE 5 MG/ML IVPUSH ONE (15:35)
[2024-07-31] MEDS ORDERED: KETOROLAC TROMETHAMINE 15 MG/ML VIAL ONE (16:29)
[2024-07-31] MEDS: REMDESIVIR 200 MG in SODIUM CHLORIDE 250 ML IVPB ONE (16:41)
[2024-07-31] MEDS: KETOROLAC TROMETHAMINE 15 MG/ML VIAL IVPUSH ONE (17:15)
[2024-07-31] MEDS ORDERED: METOCLOPRAMIDE HCL INJECTION 10 MG/2 ML VIAL IVPUSH PRN (17:57)
[2024-07-31] MEDS ORDERED: HYDROmorphone HCL 2 MG TABLET ONE (22:49)
[2024-07-31] MEDS: ONDANSETRON 4 MG/2 ML VIAL IVPUSH PRN (22:58)
[2024-07-31] MEDS: HYDROmorphone HCL 2 MG TABLET PO PRN (22:58)
[2024-08-01] MEDS ORDERED: ENOXAPARIN NA (PORCINE) 40 MG/0.4 ML DISP.SYRIN SQ ONE (10:15)
[2024-08-01] MEDS: REMDESIVIR 100 MG in SODIUM CHLORIDE 250 ML IVPB SCH (10:53)
[2024-08-01] MEDS: ENOXAPARIN NA (PORCINE) 40 MG/0.4 ML DISP.SYRIN SQ SCH (10:53)
[2024-08-01] MEDS ORDERED: HYDROmorphone HCL CARPU-JECT 2 MG/1 ML DISP.SYRIN IVPUSH PRN (11:09)
[2024-08-01] MEDS ORDERED: HYDROmorphone HCL CARPU-JECT 2 MG/1 ML DISP.SYRIN ONE ×2 (12:03→15:06)
[2024-08-01] MEDS: fentaNYL 75mcg/hr PATCH.TD72 TD SCH ×2 (14:19→15:40)
[2024-08-01] MEDS ORDERED: ALBUTEROL SO4 HFA INHALER IH PRN (14:49)
[2024-08-01] MEDS ORDERED: guaiFENesin/D-METHORPHAN HB 10 ML UNIT-DOSE CUPS PO PRN (14:51)
[2024-08-01] MEDS ORDERED: MAGNESIUM HYDROX 2400MG/30ML ORAL SUSPENSION 30 ML CUP PO PRN (14:52)
[2024-08-01] MEDS: HYDROmorphone HCL CARPU-JECT 2 MG/1 ML DISP.SYRIN IVPUSH PRN (15:40)
[2024-08-02 08:37] LABS: BASO % 0.3 % (0-2.0); EOS % 0.2 % (0-4.5); HEMATOCRIT 27.3 % (32.4-45.2); HEMOGLOBIN 8.8 GM/dL (10.7-15.3); LYMPH % 24.4 % (8-40); MCH 28.2 pg (25.7-33.7); MCHC 32.4 g/dl (32.0-36.0); MEAN CELL VOLUME 87.1 fl (80-96); MEAN PLT VOLUME 7.9 fl (7.5-11.1); MONO % 11.2 % (3.8-10.2); NEUT % 63.9 % (42.8-82.8); PLATELET COUNT 148 10^3/uL (134-434); RBC 3.14 M/mm3 (3.60-5.2); RDW 22.2 % (11.6-15.6); WHITE BLOOD COUNT 4.1 K/mm3 (4.0-10.0)
[2024-08-02 08:53] LABS: POTASSIUM 3.8 mmol/L (3.5-5.1)
[2024-08-02 08:55] LABS: ALBUMIN 3.1 g/dl (3.4-5.0); BLOOD UREA NITROGEN 10.7 mg/dL (7-18); CALCIUM 9.1 mg/dL (8.5-10.1)
[2024-08-02 08:56] LABS: MAGNESIUM 2.1 mg/dL (1.8-2.4)
[2024-08-02 08:58] LABS: CREATININE 0.7 mg/dL (0.55-1.3)
[2024-08-02 08:59] LABS: PHOSPHOROUS 4.2 mg/dL (2.5-4.9)
[2024-08-02 09:00] LABS: BILIRUBIN,TOTAL 0.8 mg/dL (0.2-1); TOT PROT 5.8 g/dl (6.4-8.2)
[2024-08-02] MEDS: PANTOPRAZOLE 40 MG TABLET PO SCH (09:33)
[2024-08-03] MEDS: fentaNYL 75mcg/hr PATCH.TD72 TD SCH (17:34)
[2024-08-03] MEDS: FENTANYL PATCH WASTE TD SCH (17:36)
[2024-08-04 12:52] VITALS: BMI 26.3
[2024-08-04] MEDS: HYDROmorphone HCL CARPU-JECT 2 MG/1 ML DISP.SYRIN IVPB PRN (17:04)
[2024-08-05] MEDS: ACETAMINOPHEN 325 MG TABLET (FP) PO PRN (03:50)
[2024-08-05] MEDS ORDERED: DOCUSATE SODIUM 100 MG CAPSULE (FP) PO PRN (13:37)
[2024-08-05] MEDS: METOCLOPRAMIDE HCL INJECTION 10 MG/2 ML VIAL IVPUSH SCH (13:57)
[2024-08-05] MEDS: DEXTROSE 5%-0.45% SALINE 1,000 ML IV SCH (14:41)
[2024-08-06 05:40] VITALS: TEMP 98.6
[2024-08-06 09:05] LABS: CALCIUM 9.2 mg/dL (8.5-10.1)
[2024-08-06 09:09] LABS: CREATININE 0.6 mg/dL (0.55-1.3)
[2024-08-06 09:10] LABS: BILIRUBIN,TOTAL 0.9 mg/dL (0.2-1); TOT PROT 5.7 g/dl (6.4-8.2)
[2024-08-06 09:46] VITALS: BP 160/72; PULSE 76; RESP 17
== END 2024-08-06 18:32 | disposition home or self-care (01) | DRG 177 ==
LOC: JER 08:22 → JERBED 15:57 → UNDOADMOB 16:59 → JERBED 16:59 → INTOOBSV 16:59 → OBSVTOIN 08-01 09:35 → J6S 08-01 18:37
PROVIDERS: ADMIT Internal Medicine; ATTEND Internal Medicine
PROC: XW033E5 Introduction of Remdesivir Anti-infective into Peripheral Vein, Percutaneous Approach, New Technology Group 5 (ICD-10-PCS; principal; 2024-08-01)
DX: U07.1 COVID-19 (principal); E43 Unspecified severe protein-calorie malnutrition; C79.51 Secondary malignant neoplasm of bone; C56.9 Malignant neoplasm of unspecified ovary; J90 Pleural effusion, not elsewhere classified; C78.7 Secondary malignant neoplasm of liver and intrahepatic bile duct; C79.9 Secondary malignant neoplasm of unspecified site; C50.919 Malignant neoplasm of unspecified site of unspecified female breast; J45.909 Unspecified asthma, uncomplicated; E09.9 Drug or chemical induced diabetes mellitus without complications; T38.0X5A Adverse effect of glucocorticoids and synthetic analogues, initial encounter; Y92.89 Other specified places as the place of occurrence of the external cause; K76.0 Fatty (change of) liver, not elsewhere classified; K29.50 Unspecified chronic gastritis without bleeding; K57.90 Diverticulosis of intestine, part unspecified, without perforation or abscess without bleeding; K21.9 Gastro-esophageal reflux disease without esophagitis; I10 Essential (primary) hypertension; G43.909 Migraine, unspecified, not intractable, without status migrainosus; K31.84 Gastroparesis; R11.15 Cyclical vomiting syndrome unrelated to migraine; D64.81 Anemia due to antineoplastic chemotherapy; K59.09 Other constipation
CPT/HCPCS: 0241U-QW; 36415; 71045-TC-FY; 74018-TC-FY; 74177-TC; 80053; 81003; 82728; 82962; 82977; 83605; 83735; 84100; 84484; 85025; 85610; 85730; 86140; 86803; 86850; 86900; 86901; 87086; 87338; 87340; 87517; 93005; 93010; 99285-25; G0378; J0248

== ENCOUNTER 2024-08-21 14:40 | Inpatient (IN) | payer OTHER ==
[2024-08-21] MEDS ORDERED: SODIUM CHLORIDE 1,000 ML IV SCH (16:00)
[2024-08-21] MEDS: SODIUM CHLORIDE 1,000 ML IV STA (17:10)
[2024-08-21] MEDS ORDERED: HALOPERIDOL LACTATE 5 MG/ML ONE (17:12)
[2024-08-21] MEDS: HALOPERIDOL LACTATE 5 MG/ML IM ONE (17:19)
[2024-08-21 17:24] LABS: BASO % 0.5 % (0-2.0); EOS % 0.4 % (0-4.5); HEMATOCRIT 30.7 % (32.4-45.2); HEMOGLOBIN 9.6 GM/dL (10.7-15.3); LYMPH % 15.7 % (8-40); MCH 27.6 pg (25.7-33.7); MCHC 31.4 g/dl (32.0-36.0); MEAN PLT VOLUME 7.6 fl (7.5-11.1); NEUT % 72.4 % (42.8-82.8); PLATELET COUNT 204 10^3/uL (134-434); RBC 3.49 M/mm3 (3.60-5.2); WHITE BLOOD COUNT 5.2 K/mm3 (4.0-10.0)
[2024-08-21] MEDS: HALOPERIDOL LACTATE 5 MG/ML IVPUSH ONE (17:38)
[2024-08-21 17:44] LABS: ALBUMIN 3.2 g/dl (3.4-5.0); BLOOD UREA NITROGEN 12.1 mg/dL (7-18); CALCIUM 11.5 mg/dL (8.5-10.1); MAGNESIUM 2.2 mg/dL (1.8-2.4)
[2024-08-21 17:47] LABS: CREATININE 0.8 mg/dL (0.55-1.3)
[2024-08-21 17:48] LABS: PHOSPHOROUS 5.5 mg/dL (2.5-4.9)
[2024-08-21 17:49] LABS: BILIRUBIN,TOTAL 1.8 mg/dL (0.2-1); TOT PROT 6.6 g/dl (6.4-8.2)
[2024-08-21 18:17] LABS: URINE APPEARANCE CLEAR; URINE BILIRUBIN NEGATIVE (NEGATIVE); URINE COLOR YELLOW; URINE GLUCOSE (UA) NEGATIVE (NEGATIVE); URINE KETONE TRACE (NEGATIVE); URINE LEUK ESTERASE NEGATIVE (NEGATIVE); URINE NITRITE NEGATIVE (NEGATIVE); URINE PROTEIN NEGATIVE (NEGATIVE)
[2024-08-21] MEDS ORDERED: HYDROmorphone HCL CARPU-JECT 2 MG/1 ML DISP.SYRIN ONE ×3 (18:29→23:11)
[2024-08-21 18:39] LABS: EPI CELLS 5.4 /uL (0-25.1); URINE BACTERIA 30.1 /uL (0-1359); URINE RBC 9.5 /uL (0-23.9); URINE WBC 7.1 /uL (0-25.8)
[2024-08-21] MEDS: HYDROmorphone HCl 2 MG/ML VIAL IVPUSH ONE ×2 (18:39→20:17)
[2024-08-21] MEDS: DEXTROSE 5%-NORMAL SALINE 1,000 ML IV SCH (19:30)
[2024-08-21] MEDS: HYDROmorphone HCl 2 MG/ML VIAL IVPB ONE (23:21)
[2024-08-22] MEDS ORDERED: ONDANSETRON 4 MG/2 ML VIAL IVPB PRN (02:11)
[2024-08-22] MEDS ORDERED: D5-1/2NS+10 MEQ KCL - 10 MEQ/1,000 ML INFUS.BAG IV SCH (02:15)
[2024-08-22] MEDS ORDERED: HYDROmorphone HCl 2 MG/ML VIAL IVPB PRN (02:20)
[2024-08-22] MEDS ORDERED: FENTANYL PATCH WASTE TD PRN (02:24)
[2024-08-22] MEDS ORDERED: DOCUSATE SODIUM 100 MG CAPSULE (FP) PO ONE (02:48)
[2024-08-22] MEDS: DOCUSATE SODIUM 100 MG CAPSULE (FP) PO ONE (02:54)
[2024-08-22] MEDS: MINERAL OIL ENEMA 133 ML ENEMA RC ONE (02:55)
[2024-08-22] MEDS: PANTOPRAZOLE SODIUM 40 MG VIAL IVPUSH SCH (02:55)
[2024-08-22] MEDS: BISACODYL 10 MG SUPP.RECT PR ONE (02:55)
[2024-08-22] MEDS ORDERED: ONDANSETRON 4 MG/2 ML VIAL ONE (03:44)
[2024-08-22] MEDS ORDERED: METOCLOPRAMIDE HCL INJECTION 10 MG/2 ML VIAL IVPUSH PRN (05:05)
[2024-08-22 05:15] VITALS: BMI 26.3
[2024-08-22] MEDS: ONDANSETRON 4 MG/2 ML VIAL IVPB PRN (05:22)
[2024-08-22] MEDS: HYDROmorphone HCL CARPU-JECT 2 MG/1 ML DISP.SYRIN IVPB PRN (05:23)
[2024-08-22] MEDS: METOCLOPRAMIDE HCL INJECTION 10 MG/2 ML VIAL IVPUSH ONE (06:40)
[2024-08-22] MEDS: ENOXAPARIN NA (PORCINE) 40 MG/0.4 ML DISP.SYRIN SQ SCH (09:40)
[2024-08-22] MEDS ORDERED: ENOXAPARIN NA (PORCINE) 40 MG/0.4 ML DISP.SYRIN SQ SCH (10:00)
[2024-08-22] MEDS: Methylnaltrexone Bromide 12 MG/0.6 ML KIT SQ SCH (11:51)
[2024-08-22] MEDS: METOPROLOL TARTRATE 5 MG/5 ML VIAL IVPB PRN (11:52)
[2024-08-22] MEDS: D5-1/2NS+20 MEQ KCL - 20 MEQ/1,000 ML INFUS.BAG IV SCH (11:53)
[2024-08-22] MEDS: METOCLOPRAMIDE HCL INJECTION 10 MG/2 ML VIAL IVPUSH SCH (18:44)
[2024-08-22] MEDS: HYDROmorphone HCL CARPU-JECT 2 MG/1 ML DISP.SYRIN IVPB SCH (19:49)
[2024-08-23] MEDS ORDERED: hydrALAZINE HCL 20 MG/ML VIAL IVPUSH PRN ×3 (07:13→08:03)
[2024-08-23] MEDS ORDERED: hydrALAZINE HCL 20 MG/ML VIAL IVPB PRN ×2 (10:02→14:25)
[2024-08-23] MEDS ORDERED: METOCLOPRAMIDE HCL INJECTION 10 MG/2 ML VIAL IVPB SCH (10:04)
[2024-08-23] MEDS: HYDROmorphone HCL CARPU-JECT 2 MG/1 ML DISP.SYRIN IVPB SCH (10:12)
[2024-08-23] MEDS: hydrALAZINE HCL 20 MG/ML VIAL IVPB PRN (11:32)
[2024-08-23 11:58] LABS: BASO % 1.3 % (0-2.0); EOS % 0.7 % (0-4.5); HEMATOCRIT 27.8 % (32.4-45.2); HEMOGLOBIN 8.8 GM/dL (10.7-15.3); LYMPH % 16.7 % (8-40); MCH 27.9 pg (25.7-33.7); MCHC 31.7 g/dl (32.0-36.0); MEAN CELL VOLUME 88.1 fl (80-96); MONO % 11.2 % (3.8-10.2); NEUT % 70.1 % (42.8-82.8); PLATELET COUNT 198 10^3/uL (134-434); RBC 3.16 M/mm3 (3.60-5.2); RDW 20.4 % (11.6-15.6); WHITE BLOOD COUNT 5.2 K/mm3 (4.0-10.0)
[2024-08-23 12:12] LABS: POTASSIUM 3.7 mmol/L (3.5-5.1)
[2024-08-23 12:14] LABS: CALCIUM 11.5 mg/dL (8.5-10.1)
[2024-08-23 12:15] LABS: ALBUMIN 2.8 g/dl (3.4-5.0); BLOOD UREA NITROGEN 11.3 mg/dL (7-18)
[2024-08-23 12:19] LABS: BILIRUBIN,TOTAL 1.8 mg/dL (0.2-1)
[2024-08-23] MEDS ORDERED: ONDANSETRON 4 MG/2 ML VIAL IVPB SCH (12:25)
[2024-08-23] MEDS: ONDANSETRON 4 MG/2 ML VIAL IVPB SCH ×2 (12:28→12:34)
[2024-08-23] MEDS ORDERED: METOPROLOL TARTRATE 5 MG/5 ML VIAL IVPB PRN (13:03)
[2024-08-23] MEDS: METOPROLOL TARTRATE 5 MG/5 ML VIAL IVPB SCH (14:10)
[2024-08-23] MEDS: METOPROLOL TARTRATE 5 MG/5 ML VIAL IVPUSH SCH (14:26)
[2024-08-23] MEDS: fentaNYL 75mcg/hr PATCH.TD72 TD SCH (14:46)
[2024-08-23] MEDS: FENTANYL PATCH WASTE TD PRN (14:53)
[2024-08-23] MEDS: METOCLOPRAMIDE HCL INJECTION 10 MG/2 ML VIAL IVPB SCH (15:04)
[2024-08-24 08:58] LABS: BASO % 0.5 % (0-2.0); HEMATOCRIT 29.7 % (32.4-45.2); HEMOGLOBIN 9.4 GM/dL (10.7-15.3); LYMPH % 18.3 % (8-40); MCHC 31.7 g/dl (32.0-36.0); MEAN CELL VOLUME 88.2 fl (80-96); MONO % 12.1 % (3.8-10.2); NEUT % 68.1 % (42.8-82.8); PLATELET COUNT 192 10^3/uL (134-434); RBC 3.37 M/mm3 (3.60-5.2); RDW 19.9 % (11.6-15.6); WHITE BLOOD COUNT 4.9 K/mm3 (4.0-10.0)
[2024-08-24 09:10] LABS: POTASSIUM 3.7 mmol/L (3.5-5.1)
[2024-08-24 09:12] LABS: CALCIUM 12.3 mg/dL (8.5-10.1)
[2024-08-24 09:13] LABS: ALBUMIN 2.9 g/dl (3.4-5.0); BLOOD UREA NITROGEN 9.8 mg/dL (7-18)
[2024-08-24 09:16] LABS: CREATININE 0.8 mg/dL (0.55-1.3)
[2024-08-24 09:18] LABS: TOT PROT 6.1 g/dl (6.4-8.2)
[2024-08-24] MEDS ORDERED: fentaNYL 75mcg/hr PATCH.TD72 TD SCH (10:00)
[2024-08-24] MEDS: METHYLNALTREXONE BROMIDE 8 MG/0.4 ML SYRINGE SQ SCH (12:13)
[2024-08-24] MEDS ORDERED: hydrALAZINE HCL 10 MG TABLET PO SCH (14:00)
[2024-08-24] MEDS: hydrALAZINE HCL 10 MG TABLET PO SCH (14:43)
[2024-08-25 08:27] LABS: BASO % 0.4 % (0-2.0); EOS % 1.2 % (0-4.5); HEMATOCRIT 27.9 % (32.4-45.2); HEMOGLOBIN 9.1 GM/dL (10.7-15.3); LYMPH % 21.1 % (8-40); MCH 28.4 pg (25.7-33.7); MCHC 32.6 g/dl (32.0-36.0); MEAN CELL VOLUME 87.1 fl (80-96); MEAN PLT VOLUME 7.9 fl (7.5-11.1); MONO % 9.4 % (3.8-10.2); NEUT % 67.9 % (42.8-82.8); PLATELET COUNT 173 10^3/uL (134-434); RDW 20.5 % (11.6-15.6)
[2024-08-25 08:45] LABS: POTASSIUM 3.7 mmol/L (3.5-5.1)
[2024-08-25 08:50] LABS: CALCIUM 12.6 mg/dL (8.5-10.1)
[2024-08-25 08:51] LABS: BLOOD UREA NITROGEN 11.8 mg/dL (7-18)
[2024-08-25 08:54] LABS: CREATININE 0.8 mg/dL (0.55-1.3)
[2024-08-25 10:53] LABS: ANISOCYTOSIS 0; MACROCYTOSIS 0
[2024-08-25] MEDS: hydrALAZINE HCL 10 MG TABLET PO SCH (11:02)
[2024-08-25] MEDS: HYDROmorphone HCL CARPU-JECT 2 MG/1 ML DISP.SYRIN IVPB SCH (13:01)
[2024-08-26 09:26] VITALS: RESP 18
[2024-08-27] MEDS ORDERED: FENTANYL PATCH WASTE TD PRN (09:57)
[2024-08-27] MEDS: SCOPOLAMINE HYDROBROMIDE 1 PATCH PATCH.TD72 TD SCH (10:50)
[2024-08-27] MEDS: fentaNYL 75mcg/hr PATCH.TD72 TD SCH (10:50)
[2024-08-27] MEDS: fentaNYL 12mcg/hr PATCH.TD72 TD SCH (10:52)
[2024-08-27] MEDS: LIDOCAINE 5% TOPICAL PATCH TP SCH (10:53)
[2024-08-27] MEDS: LYTES/YERBA SANTA 60 ML SPRAY MM SCH (10:54)
[2024-08-27] MEDS: metoPROLOL SUCCINATE 25 MG TAB.SR.24H (FP) PO SCH (12:26)
[2024-08-27] MEDS: hydrALAZINE HCL 10 MG TABLET PO SCH (14:59)
[2024-08-27] MEDS ORDERED: LIDOCAINE PATCH REMOVAL MC SCH (22:00)
[2024-08-27 22:03] VITALS: BP 163/70; PULSE 81; TEMP 98
== END 2024-08-27 21:47 | disposition hospice, inpatient (51) | DRG 74 ==
LOC: JER 14:40 → JERBED 08-22 02:06 → OBSVTOIN 08-22 02:41 → J5S 08-22 03:34 → J8W 08-27 09:54
PROVIDERS: ADMIT Internal Medicine; ATTEND Internal Medicine
DX: E11.43 Type 2 diabetes mellitus with diabetic autonomic (poly)neuropathy (principal); C78.7 Secondary malignant neoplasm of liver and intrahepatic bile duct; C79.51 Secondary malignant neoplasm of bone; R11.2 Nausea with vomiting, unspecified; K31.84 Gastroparesis; I10 Essential (primary) hypertension; C50.919 Malignant neoplasm of unspecified site of unspecified female breast; K59.00 Constipation, unspecified
CPT/HCPCS: 36415; 71045-TC-FY; 73030-TC-LT-FY; 74177-TC; 80048; 80053; 81003; 82728; 83540; 83550; 83690; 83735; 84100; 85025; 87086; 93005; 93010; 97116-GP; 97161-GP; 99285-25; G0378; Q9967